=== PATIENT | male | born 1955 | race Caucasian/White ===

== ENCOUNTER 2016-11-18 19:07 | Inpatient (IN) | payer OTHER ==
[~2016-11-18] VITALS: Ht 182.9 cm; Wt 114.1 kg
[2016-11-18 19:10] VITALS: BP 173/94; PULSE 105; RESP 20; TEMP 99.3; O2SAT 95
[2016-11-18 19:21] VITALS: BP 141/85; PULSE 100; RESP 22; TEMP 98.2; O2SAT 98
[2016-11-18] MEDS ORDERED: SODIUM CHLOR 0.9% 1000 ML INJ 1,000 ML IV SCH (19:21)
[2016-11-18] MEDS ORDERED: FAMOTIDINE 20 MG/2 ML VIAL IV PUSH ONE (19:30)
[2016-11-18] MEDS ORDERED: SODIUM CHLORIDE 0.9% FLUSH 10 ML FLUSH IV FLUSH PRN ×2 (19:30→22:30)
[2016-11-18] MEDS ORDERED: ONDANSETRON HCL 4 MG/2 ML VIAL IVP ONE (19:30)
--- NOTE | 2016-11-18 19:33 | PD ---
HPI Chief Complaint: Chest Pain Time Seen by Provider: 19:15 Travel History International Travel<30 days: No Contact w/Intl Traveler<30days: No Traveled to known affect area: No History of Present Illness HPI The patient is a 61-year-old male who presents to the emergency department via private vehicle for vomiting and reflux-like symptoms. The patient states he has a history of gastroesophageal reflux, developed some epigastric abdominal pain that was burning, radiating into the substernal chest area, with burning in the mouth. He does complain of shortness of breath which she states is chronic, possibly secondary to COPD. The patient was a heavy smoker, now states he only smokes half a pack of cigarettes per day. The patient denies any history of coronary artery disease, hyperlipidemia, or diabetes. He does have a history of hypertension, however, currently does not take any antihypertensives. The patient states that the burning sensation in the chest has resolved. He does admit to using alcohol daily, drank 5 12 ounce cans of beer earlier today. The patient's symptoms are moderate, mostly self alleviating upon arrival, and there are no known exacerbating factors. The patient denies any known history of pulmonary embolism or DVT. PFSH Past Medical History Arthritis: Yes Asthma: Yes Diabetes: Yes Hypertension: Yes Past Surgical History Eye Surgery: Yes Oral Surgery: Yes (trache) Social History Alcohol Use: Yes Tobacco Use: Yes Substance Use: No Allergies-Medications (Allergen,Severity, Reaction): Coded Allergies: No Known Allergies (Unverified , 11/18/16) Reported Meds & Prescriptions Reported Meds & Active Scripts Active No Active Prescriptions or Reported Medications Review of Systems Except as stated in HPI: all other systems reviewed are Neg General / Constitutional: No: Fever HENT: No: Lightheadedness Cardiovascular: Positive: Chest Pain or Discomfort (substernal burning that radiates from the epigastrium) Respiratory: Positive: Shortness of Breath (chronic shortness of breath which he contributes to possible COPD), No: Cough, Wheezing Gastrointestinal: Positive: Nausea, Vomiting, Abdominal Pain (epigastric abdominal pain), Indigestion, No: Diarrhea Musculoskeletal: No: Edema Psychiatric: Positive: Substance Abuse (daily alcohol use) Physical Exam Narrative GENERAL: Awake, alert, 61-year-old male appears his stated age and is in no acute respiratory distress. SKIN: Focused skin assessment warm/dry. HEAD: Atraumatic. Normocephalic. EYES: Pupils equal and round. No scleral icterus. No injection or drainage. ENT: No nasal bleeding or discharge. Mucous membranes pink and moist. NECK: Trachea midline. No JVD. CARDIOVASCULAR: Regular, tachycardic with a heart rate 100. RESPIRATORY: No accessory muscle use. Prolonged expiratory phase with a few scattered wheezes. GASTROINTESTINAL: Abdomen soft, obese, no rebound tender is, guarding, rigidity. MUSCULOSKELETAL: No obvious deformities. No clubbing. No cyanosis. No edema. Calves are soft bilaterally. NEUROLOGICAL: Awake and alert. No obvious cranial nerve deficits. Motor grossly within normal limits. Normal speech. Nonfocal. PSYCHIATRIC: Appropriate mood and affect; insight and judgment normal. Data Data Last Documented VS Vital Signs Date Time Temp Pulse Resp B/P (MAP) Pulse Ox O2 Delivery O2 Flow Rate FiO2 11/18/16 19:21 98.2 100 22 141/85 (103) 98 11/18/16 19:10 Room Air Orders Orders Complete Blood Count With Diff (11/18/16 19:21) Comprehensive Metabolic Panel (11/18/16 19:21) Lipase (11/18/16 19:21) Lactic Acid (11/18/16 19:21) Urinalysis - C+S If Indicated (11/18/16 19:21) Iv Access Insert/Monitor (11/18/16 19:21) Ecg Monitoring (11/18/16 19:21) Oximetry (11/18/16 19:21) Ondansetron Inj (Zofran Inj) (11/18/16 19:30) Sodium Chlor 0.9% 1000 Ml Inj (Ns 1000 M (11/18/16 19:21) Sodium Chloride 0.9% Flush (Ns Flush) (11/18/16 19:30) Chest, Single Ap (11/18/16 19:21) Famotidine Inj (Pepcid Inj) (11/18/16 19:30) Troponin I (11/18/16 19:21) Creatine Kinase (Cpk) (11/18/16 19:21) Alcohol (Ethanol) (11/18/16 19:21) Electrocardiogram (11/18/16 19:15) Ct Pulmonary Angiogram (11/18/16 ) Sodium Chlor 0.9% 1000 Ml Inj (Ns 1000 M (11/18/16 20:30) Diatrizoate Liq (Md Richards Liq) (11/18/16 20:53) CKMB (11/18/16 19:40) CKMB% (11/18/16 19:40) Ct Abd/Pel W Iv Contrast(Rout) (11/18/16 21:08) Iohexol 350 Inj (Omnipaque 350 Inj) (11/18/16 21:46) Admit Order (Ed Use Only) (11/18/16 22:13) Labs Laboratory Tests Test 11/18/16 19:40 11/18/16 21:00 White Blood Count 9.0 TH/MM3 Red Blood Count 4.12 MIL/MM3 Hemoglobin 14.1 GM/DL Hematocrit 39.1 % Mean Corpuscular Volume 94.9 FL Mean Corpuscular Hemoglobin 34.4 PG Mean Corpuscular Hemoglobin Concent 36.2 % Red Cell Distribution Width 12.9 % Platelet Count 217 TH/MM3 Mean Platelet Volume 7.1 FL Neutrophils (%) (Auto) 73.3 % Lymphocytes (%) (Auto) 17.8 % Monocytes (%) (Auto) 8.4 % Eosinophils (%) (Auto) 0.2 % Basophils (%) (Auto) 0.3 % Neutrophils # (Auto) 6.6 TH/MM3 Lymphocytes # (Auto) 1.6 TH/MM3 Monocytes # (Auto) 0.8 TH/MM3 Eosinophils # (Auto) 0.0 TH/MM3 Basophils # (Auto) 0.0 TH/MM3 CBC Comment AUTO DIFF Differential Comment AUTO DIFF CONFIRMED Platelet Estimate NORMAL Platelet Morphology Comment NORMAL Blood Urea Nitrogen 7 MG/DL Creatinine 0.62 MG/DL Random Glucose 83 MG/DL Total Protein 7.2 GM/DL Albumin 3.9 GM/DL Calcium Level 8.3 MG/DL Alkaline Phosphatase 79 U/L Aspartate Amino Transf (AST/SGOT) 92 U/L Alanine Aminotransferase (ALT/SGPT) 73 U/L Total Bilirubin 0.8 MG/DL Sodium Level 116 MEQ/L Potassium Level 3.5 MEQ/L Chloride Level 76 MEQ/L Carbon Dioxide Level 21.9 MEQ/L Anion Gap 18 MEQ/L Estimat Glomerular Filtration Rate 132 ML/MIN Lactic Acid Level 5.9 mmol/L Total Creatine Kinase 586 U/L Creatine Kinase MB 12.5 NG/ML Creatine Kinase MB % 2.1 % Troponin I LESS THAN 0.02 NG/ML Lipase 153 U/L Ethyl Alcohol Level 106 MG/DL Urine Color YELLOW Urine Turbidity CLEAR Urine pH 6.0 Urine Specific [place] 1.008 Urine Protein NEG mg/dL Urine Glucose (UA) NEG mg/dL Urine Ketones 40 mg/dL Urine Occult Blood NEG Urine Nitrite NEG Urine Bilirubin NEG Urine Urobilinogen LESS THAN 2.0 MG/DL Urine Leukocyte Esterase NEG Urine RBC LESS THAN 1 /hpf Urine WBC LESS THAN 1 /hpf Urine Squamous Epithelial Cells <1 /hpf Urine Bacteria RARE /hpf Microscopic Urinalysis Comment CULT NOT INDICATED MDM Medical Decision Making Medical Screen Exam Complete: Yes Emergency Medical Condition: Yes Medical Record Reviewed: Yes Interpretation(s) EKG reveals sinus tachycardia with a heart rate of 100. Low QRS voltage precordial leads. Chest x-ray reveals no acute disease Laboratory Tests Test 11/18/16 19:40 11/18/16 21:00 White Blood Count 9.0 TH/MM3 Red Blood Count 4.12 MIL/MM3 Hemoglobin 14.1 GM/DL Hematocrit 39.1 % Mean Corpuscular Volume 94.9 FL Mean Corpuscular Hemoglobin 34.4 PG Mean Corpuscular Hemoglobin Concent 36.2 % Red Cell Distribution Width 12.9 % Platelet Count 217 TH/MM3 Mean Platelet Volume 7.1 FL Neutrophils (%) (Auto) 73.3 % Lymphocytes (%) (Auto) 17.8 % Monocytes (%) (Auto) 8.4 % Eosinophils (%) (Auto) 0.2 % Basophils (%) (Auto) 0.3 % Neutrophils # (Auto) 6.6 TH/MM3 Lymphocytes # (Auto) 1.6 TH/MM3 Monocytes # (Auto) 0.8 TH/MM3 Eosinophils # (Auto) 0.0 TH/MM3 Basophils # (Auto) 0.0 TH/MM3 CBC Comment AUTO DIFF Differential Comment AUTO DIFF CONFIRMED Platelet Estimate NORMAL Platelet Morphology Comment NORMAL Blood Urea Nitrogen 7 MG/DL Creatinine 0.62 MG/DL Random Glucose 83 MG/DL Total Protein 7.2 GM/DL Albumin 3.9 GM/DL Calcium Level 8.3 MG/DL Alkaline Phosphatase 79 U/L Aspartate Amino Transf (AST/SGOT) 92 U/L Alanine Aminotransferase (ALT/SGPT) 73 U/L Total Bilirubin 0.8 MG/DL Sodium Level 116 MEQ/L Potassium Level 3.5 MEQ/L Chloride Level 76 MEQ/L Carbon Dioxide Level 21.9 MEQ/L Anion Gap 18 MEQ/L Estimat Glomerular Filtration Rate 132 ML/MIN Lactic Acid Level 5.9 mmol/L Total Creatine Kinase 586 U/L Creatine Kinase MB 12.5 NG/ML Creatine Kinase MB % 2.1 % Troponin I LESS THAN 0.02 NG/ML Lipase 153 U/L Ethyl Alcohol Level 106 MG/DL Urine Color YELLOW Urine Turbidity CLEAR Urine pH 6.0 Urine Specific [place] 1.008 Urine Protein NEG mg/dL Urine Glucose (UA) NEG mg/dL Urine Ketones 40 mg/dL Urine Occult Blood NEG Urine Nitrite NEG Urine Bilirubin NEG Urine Urobilinogen LESS THAN 2.0 MG/DL Urine Leukocyte Esterase NEG Urine RBC LESS THAN 1 /hpf Urine WBC LESS THAN 1 /hpf Urine Squamous Epithelial Cells <1 /hpf Urine Bacteria RARE /hpf Microscopic Urinalysis Comment CULT NOT INDICATED CT pulmonary angiogram reveals hepatomegaly and hepatic steatosis. No evidence for pulmonary embolus. Lung nodules. 6-month-old CT chest recommended. CT abdomen and pelvis reveals hepatomegaly and hepatic steatosis. Atherosclerosis. Diverticulosis. Differential Diagnosis Differential diagnosis includes gastritis, GERD, peptic ulcer disease, pancreatitis, pulmonary embolism, acute coronary syndrome, pneumonia, biliary colic. Narrative Course IV was established, labs are drawn and sent, and the patient was placed on cardiac telemetry monitoring and continuous pulse oximetry monitoring. EKG was ordered and interpreted. Chest x-ray was obtained. The patient was administered Pepcid, Zofran, and IV fluids. Troponin and CPK were sent to lab. Lipase level was sent to lab. Lab called, patient's lactic gas was 5.9. Therefore, the patient was administered and the second liter of IV fluids. CT pulmonary angiogram was ordered to rule out PE and CT the abdomen and pelvis was ordered for his epigastric abdominal pain with elevated lactic acid. Chest x-ray was unremarkable, no evidence of pneumonia. CT pulmonary angiogram reveals lung nodules with repeat CT of the chest in [address] abdomen and pelvis reveals hepatomegaly and hepatic steatosis. The patient's hyponatremia may be secondary to alcohol use versus water intoxication. The patient's alcohol level is elevated at 106. Patient also has lactic acidosis. The patient will be admitted to the on-call medical service. Physician Communication Physician Communication The on-call medical service was paged for admission. I discussed the patient with Dr. Manzanares who agrees with admission. Diagnosis Primary Impression: Hyponatremia Additional Impression: Lactic acidosis Scripts No Active Prescriptions or Reported Meds Condition: Stable Vic Villar MD Nov 18, 2016 19:33
[2016-11-18 20:22] LABS: AUTOMATED NEUTROPHIL # 6.6 TH/MM3 (1.8-7.7); BASOPHIL % 0.3 % (0.0-2.0); EOSINOPHIL % 0.2 % (0.0-4.0); HEMATOCRIT 39.1 % (39.0-51.0); LYMPH % 17.8 % (9.0-44.0); LYMPHOCYTE # 1.6 TH/MM3 (1.0-4.8); MEAN CELL VOLUME 94.9 FL (80.0-100.0); MEAN CORPUSCULAR HEMOGLOBIN 34.4 PG (27.0-34.0); MONO % 8.4 % (0.0-8.0); NEUT % 73.3 % (16.0-70.0); PLATELET COUNT 217 TH/MM3 (150-450); RED BLOOD COUNT 4.12 MIL/MM3 (4.50-5.90); RED CELL DISTRIBUTION WIDTH 12.9 % (11.6-17.2)
[2016-11-18 20:24] LABS: HEMO FLAGS AUTO DIFF; MEAN CORPUSCULAR HGB CONC 36.2 % (32.0-36.0)
[2016-11-18] MEDS ORDERED: SODIUM CHLOR 0.9% 1000 ML INJ 1,000 ML IV ONE (20:30)
--- NOTE | 2016-11-18 20:36 | RADRPT ---
EXAM DATE/TIME: 11/18/2016 20:24 [facility] COMPARISON: CHEST SINGLE AP, September 21, 2014, 13:20. INDICATIONS : Vomiting. MEDICAL HISTORY : None. SURGICAL HISTORY : None. ENCOUNTER: Initial ACUITY: 1 day PAIN SCORE: 0/10 LOCATION: Bilateral chest FINDINGS: A single view of the chest demonstrates the lungs to be symmetrically aerated without evidence of mas s, infiltrate or effusion. The cardiomediastinal contours are unremarkable. Osseous structures are intact. CONCLUSION: No acute disease. Chai Neville MD on November 18, 2016 at 20:35 Board Certified Radiologist. This report was verified electronically.
[2016-11-18 20:40] LABS: ALCOHOL 106 MG/DL (0-5); ANION GAP 18 MEQ/L (5-15); AST (GOT) 92 U/L (15-37); BICARBONATE 21.9 MEQ/L (21.0-32.0); BLOOD UREA NITROGEN 7 MG/DL (7-18); CHLORIDE 76 MEQ/L (98-107); GLOMERULAR FILTRATION RATE 132 ML/MIN (>89); POTASSIUM 3.5 MEQ/L (3.5-5.1)
[2016-11-18 20:43] LABS: SODIUM (NA) 116 MEQ/L (136-145)
[2016-11-18] MEDS ORDERED: DIATRIZOATE MEGLUM/DIATRIZOATE SOD 9 ML CUP ONE (20:53)
[2016-11-18 21:00] LABS: ALKALINE PHOSPHATASE 79 U/L (45-117); ALT (GPT) 73 U/L (12-78); CREATINE KINASE 586 U/L (39-308); TOTAL BILIRUBIN ADULT 0.8 MG/DL (0.2-1.0)
[2016-11-18 21:15] LABS: CKMB 12.5 NG/ML (0.5-3.6)
[2016-11-18 21:37] LABS: BACTERIA, URINE RARE /hpf; BLOOD, URINE NEG (NEG); COMMENT (UR) CULT NOT INDICATED; CULTURE IF INDICATED CULT NOT INDICATED; GLUCOSE,URINE NEG (NEG); KETONE, URINE 40 mg/dL (NEG); NITRITE,URINE NEG (NEG); SQUAMOUS EPITHELIAL CELL URINE <1 /hpf (0-5); URINE COLOR YELLOW (YELLW/STRAW)
[2016-11-18] MEDS ORDERED: IOHEXOL 350 MG/ML 10 ML VIAL (for RAD DIAG) IVCONTRAST ONE (21:46)
[2016-11-18 21:47] LABS: PLATELET ESTIMATE SMEAR NORMAL (NORMAL); PLATELET MORPHOLOGY NORMAL (NORMAL); SCAN/DIFF AUTO DIFF CONFIRMED
--- NOTE | 2016-11-18 21:55 | RADRPT ---
EXAM DATE/TIME: 11/18/2016 21:35 [facility] COMPARISON: CHEST SINGLE AP, November 18, 2016, 20:24. INDICATIONS : Chest pain and shortness of breath. IV CONTRAST: 100 cc Omnipaque 350 (iohexol) IV ; Cumulative dose for multiple exams. RADIATION DOSE: 23.38 CTDIvol (mGy) MEDICAL HISTORY : Hypertension. Hepatitis B. Diabetes. SURGICAL HISTORY : None. ENCOUNTER: Initial ACUITY: 1 day PAIN SCALE: 6/10 LOCATION: Bilateral chest TECHNIQUE: Volumetric scanning of the chest was performed using a pulmonary embolism protocol MIP images were re constructed. Using automated exposure control and adjustment of the mA and/or kV according to patien t size, radiation dose was kept as low as reasonably achievable to obtain optimal diagnostic quality images. DICOM format image data is available electronically for review and comparison. Follow-up recommendations for detected pulmonary nodules are based at a minimum on nodule size and pa tient risk factors according to Fleischner Society Guidelines. FINDINGS: There is a noncalcified nodule in the right upper lobe medially measuring 9.6 cm on image 31. There i s a nodule also seen in the right middle lobe measuring 6.0 mm on image 54. Mild apical emphysematous changes are seen. No consolidation or effusion. Questionable noncalcified left upper lobe nodule gosia suring 4.1 mm on image 38. No adenopathy. Coronary artery calcification. Hepatic venous stenosis and hepatomegaly. Gynecomastia. No evidence of pulmonary embolism. CONCLUSION: 1. Hepatomegaly and hepatic steatosis. 2. No evidence for pulmonary embolus. 3. Lung nodules. [address] chest recommended. Chai Neville MD on November 18, 2016 at 21:52 Board Certified Radiologist. This report was verified electronically.
--- NOTE | 2016-11-18 21:58 | RADRPT ---
EXAM DATE/TIME: 11/18/2016 21:35 [facility] COMPARISON: US ABDOMEN - LIVER, September 21, 2014, 19:08. CT PULMONARY ANGIOGRAM, November 18, 2016, 21:35. INDICATIONS : Epigastric abdominal pain with vomiting. IV CONTRAST: 100 cc Omnipaque 350 (iohexol) IV ; Cumulative dose for multiple exams. ORAL CONTRAST: No oral contrast ingested. RADIATION DOSE: 31.44 CTDIvol (mGy) MEDICAL HISTORY : Gastroesophageal reflux disease. Hypertension. Hepatitis B.Diabetes. SURGICAL HISTORY : None. ENCOUNTER: Initial ACUITY: 1 day PAIN SCALE: 7/10 LOCATION: Epigastric. TECHNIQUE: Volumetric scanning of the abdomen and pelvis was performed. Using automated exposure control and ad justment of the mA and/or kV according to patient size, radiation dose was kept as low as reasonably achievable to obtain optimal diagnostic quality images. DICOM format image data is available electro nically for review and comparison. FINDINGS: There is atherosclerosis, hepatomegaly and hepatic steatosis. Kidneys, spleen, pancreas, adrenal glan ds, stomach unremarkable. Urinary bladder, prostate, small bowel, and appendix are normal. A few dive rticuli are seen within the left colon. No adenopathy. There are degenerative changes of the spine no ziyad with remote mild compression deformities at L1, T12 and T8. CONCLUSION: 1. Hepatomegaly and hepatic steatosis. 2. Atherosclerosis. 3. Diverticulosis. Chai Neville MD on November 18, 2016 at 21:55 Board Certified Radiologist. This report was verified electronically.
--- NOTE | 2016-11-18 22:27 | HHI.HP ---
HPI Service [facility] Primary Care Physician [facility] Admission Diagnosis hyponatremia, lactic acidosis, alcohol use Diagnoses: (1) Hyponatremia Diagnosis: Principal (2) Intractable nausea and vomiting Diagnosis: Principal (3) Chest pain Diagnosis: Principal (4) Rhabdomyolysis Diagnosis: Principal (5) Lactic acidosis Diagnosis: Principal (6) Alcohol abuse Diagnosis: Principal (7) Tobacco abuse Diagnosis: Principal Travel History International Travel<30 Days: No Contact w/Intl Traveler <30 Da: No Traveled to Known Affected Are: No History of Present Illness This is a 61-year-old male with PMH of HTN, COPD, Alcohol Abuse and Tobacco Abuse was brought to the ER by friend secondary to complaints of chest/ epigastric pain in addition to nausea and vomiting starting earlier today. Pt poor historian, history difficult to obtain. Denies fever, chills or cough. On arrival, BP 173/94, HR 105, O2 sat 95% on RA, Temp 99.3. Hemoglobin normal. Na 116. K+ normal. AG 18. Lactic Acid 5.9. CPK 586. Trop negative. Lipase normal. U/a negative. Alcohol 106. CXR w/ no acute findings. CTA Pulm negative for PE, +hepatic steatosis and lung nodules w/ recommendation for 6mo [address] up. CT Abd/Pelvis negative for acute findings, hepatic steatosis as before. S/p IVF in ER. Review of Systems Except as stated in HPI: all other systems reviewed are Neg ROS: 14 point review of systems otherwise negative. Past Family Social History Past Medical History PMH: HTN, COPD, Alcohol Abuse and Tobacco Abuse Past Surgical History PAST SURGICAL HISTORY: Eye Surgery Allergies: Coded Allergies: No Known Allergies (Unverified , 11/18/16) Family History PAST FAMILY HISTORY: Reviewed. No h/o DM or CAD Social History PAST SOCIAL HISTORY: Positive for alcohol abuse. Positive for tobacco. Negative for drugs. Physical Exam Vital Signs Vital Signs Date Time Temp Pulse Resp B/P (MAP) Pulse Ox O2 Delivery O2 Flow Rate FiO2 11/18/16 19:21 98.2 100 22 141/85 (103) 98 11/18/16 19:10 99.3 105 20 173/94 (120) 95 Room Air Physical Exam PE: GENERAL: Middle-aged white male in no acute distress, disheveled. HEENT: PERRLA, EOMI. No scleral icterus or conjunctival pallor. No lid lag or facial droop. CARDIOVASCULAR: Regular rate and rhythm. No obvious murmurs to auscultation. No chest tenderness to palpation. RESPIRATORY: No obvious rhonchi or wheezing. Clear to auscultation. Breath sounds equal bilaterally. GASTROINTESTINAL: Abdomen soft, non-tender, nondistended. BS normal. MUSCULOSKELETAL: Extremities without clubbing, cyanosis, or edema. No obvious deformities. NEUROLOGICAL: Awake, alert. No focal neurologic deficits. Moving both upper and lower extremities spontaneously. Laboratory Laboratory Tests Test 11/18/16 19:40 11/18/16 21:00 White Blood Count 9.0 Red Blood Count 4.12 Hemoglobin 14.1 Hematocrit 39.1 Mean Corpuscular Volume 94.9 Mean Corpuscular Hemoglobin 34.4 Mean Corpuscular Hemoglobin Concent 36.2 Red Cell Distribution Width 12.9 Platelet Count 217 Mean Platelet Volume 7.1 Neutrophils (%) (Auto) 73.3 Lymphocytes (%) (Auto) 17.8 Monocytes (%) (Auto) 8.4 Eosinophils (%) (Auto) 0.2 Basophils (%) (Auto) 0.3 Neutrophils # (Auto) 6.6 Lymphocytes # (Auto) 1.6 Monocytes # (Auto) 0.8 Eosinophils # (Auto) 0.0 Basophils # (Auto) 0.0 CBC Comment AUTO DIFF Differential Comment AUTO DIFF CONFIRMED Platelet Estimate NORMAL Platelet Morphology Comment NORMAL Blood Urea Nitrogen 7 Creatinine 0.62 Random Glucose 83 Total Protein 7.2 Albumin 3.9 Calcium Level 8.3 Alkaline Phosphatase 79 Aspartate Amino Transf (AST/SGOT) 92 Alanine Aminotransferase (ALT/SGPT) 73 Total Bilirubin 0.8 Sodium Level 116 Potassium Level 3.5 Chloride Level 76 Carbon Dioxide Level 21.9 Anion Gap 18 Estimat Glomerular Filtration Rate 132 Lactic Acid Level 5.9 Total Creatine Kinase 586 Creatine Kinase MB 12.5 Creatine Kinase MB % 2.1 Troponin I LESS THAN 0.02 Lipase 153 Ethyl Alcohol Level 106 Urine Color YELLOW Urine Turbidity CLEAR Urine pH 6.0 Urine Specific [place] 1.008 Urine Protein NEG Urine Glucose (UA) NEG Urine Ketones 40 Urine Occult Blood NEG Urine Nitrite NEG Urine Bilirubin NEG Urine Urobilinogen LESS THAN 2.0 Urine Leukocyte Esterase NEG Urine RBC LESS THAN 1 Urine WBC LESS THAN 1 Urine Squamous Epithelial Cells <1 Urine Bacteria RARE Microscopic Urinalysis Comment CULT NOT INDICATED Result Diagram: 11/18/16193911/18/161939 Maryi VTE Risk Assessment Caprini VTE Risk Assessment: No/Low Risk (score <= 1) Caprini Risk Assessment Model Point Value = 1 Point Value = 2 Point Value = 3 Point Value = 5 Age 41-60 Minor surgery BMI > 25 kg/m2 Swollen legs Varicose veins or History of unexplained or recurrent spontaneous Oral contraceptives or hormone replacement Sepsis (< 1 month) Serious lung disease, including pneumonia (< 1 month) Abnormal pulmonary function Acute myocardial infarction Congestive heart failure (< 1 month) History of inflammatory bowel disease Medical patient at bed rest Age 61-74 Arthroscopic surgery Major open surgery (> 45 min) Laparoscopic surgery (> 45 min) Malignancy Confined to bed (> 72 hours) Immobilizing plaster cast Central venous access Age >= 75 History of VTE Family history of VTE Factor V Leiden Prothrombin [id number] Lupus anticoagulant Anticardiolipin antibodies Elevated serum homocysteine Heparin-induced thrombocytopenia Other congenital or acquired thrombophilia Stroke (< 1 month) Elective arthroplasty Hip, pelvis, or leg fracture Acute spinal cord injury (< 1 month) Prophylaxis Regimen Total Risk Factor Score Risk Level Prophylaxis Regimen 0-1 Low Early ambulation 2 Moderate Order ONE of the following: *Sequential Compression Device (SCD) *Heparin 5000 units SQ BID 3-4 Higher Order ONE of the following medications: *Heparin 5000 units SQ TID *Enoxaparin/Lovenox 40 mg SQ daily (WT < 150 kg, CrCl > 30 mL/min) *Enoxaparin/Lovenox 30 mg SQ daily (WT < 150 kg, CrCl > 10-29 mL/min) *Enoxaparin/Lovenox 30 mg SQ BID (WT < 150 kg, CrCl > 30 mL/min) AND/OR *Sequential Compression Device (SCD) 5 or more Highest Order ONE of the following medications: *Heparin 5000 units SQ TID (Preferred with Epidurals) *Enoxaparin/Lovenox 40 mg SQ daily (WT < 150 kg, CrCl > 30 mL/min) *Enoxaparin/Lovenox 30 mg SQ daily (WT < 150 kg, CrCl > 10-29 mL/min) *Enoxaparin/Lovenox 30 mg SQ BID (WT < 150 kg, CrCl > 30 mL/min) AND *Sequential Compression Device (SCD) Assessment and Plan Problem List: (1) Hyponatremia ICD Code: E87.1 - Hypo-osmolality and hyponatremia Status: Acute (2) Chest pain ICD Code: R07.9 - Chest pain, unspecified (3) Intractable nausea and vomiting ICD Code: R11.2 - Nausea with vomiting, unspecified (4) Lactic acidosis ICD Code: E87.2 - Acidosis Status: Acute (5) Rhabdomyolysis ICD Code: M62.82 - Rhabdomyolysis (6) Alcohol abuse ICD Code: F10.10 - Alcohol abuse, uncomplicated (7) Tobacco abuse ICD Code: Z72.0 - Tobacco use Assessment and Plan A/P: 1. Hyponatremia: Na 116, likely secondary to chronic alcohol abuse in combination w/ dehydration from intractable nausea/vomiting. Similar episode 2014 per review of labs. Continue IVF for hydration, repeat labs, Neuro Checks , Seizure Precautions. CTA Pulm negative for PE, noted to have multiple lung nodules w/ recommendation for 6 mo follow up, images reviewed by me, no findings to suggest SIADH. 2. Chest Pain: Atypical. Likely GI etiology as c/o nausea/vomiting. Trop negative, EKG w/ no acute ischemia. Check serial trop, analgesics/antiemetics as needed. 3. Intractable NV: Lipase normal. Pepcid IV, analgesics as needed. IVF for hydration. CT Abd/Pelvis w/ no acute findings, +hepatic steatosis, images reviewed by me. 4. Lactic Acidosis: Lactate 5.9, s/p IVF in ER, will continue w/ IVF, repeat Lactic Acid. No evidence of sepsis, likely secondary to dehydration. 5. Rhabdomyolysis: Mild. CPK 586. IVF for hydration, check serial CPK for trend. 6. Alcohol Abuse: Drinks daily, unable to quantify. High risk for withdrawal. CIWA, Seizure Precautions, MVT/Thiamine/Folate replacement. 7. Tobacco Abuse: Pt counselled. NicoDerm/Ativan prn if needed. 8. DVT Prophylaxis: SCD/Teds. 9. Social work for d/c planning as needed. 10. Case discussed w/ ER physician at length. Physician Certification 2 Midnight Certification Type: Admission for Inpatient Services Order for Inpatient Services The services are ordered in accordance with Medicare regulations or non- Medicare payer requirements, as applicable. In the case of services not specified as inpatient-only, they are appropriately provided as inpatient services in accordance with the 2-midnight benchmark. Estimated LOS (days): 2 days is the estimated time the patient will need to remain in the hospital, assuming treatment plan goals are met and no additional complications. Post-Hospital Plan: Not yet determined Pao Manzanares MD Nov 18, 2016 22:27
[2016-11-18] MEDS ORDERED: LORazepam 2 MG TAB PO PRN (22:30)
[2016-11-18] MEDS ORDERED: LACTULOSE SYRUP 20 GM/30 ML CUP PO PRN (22:30)
[2016-11-18] MEDS ORDERED: LORazepam 2 MG/ML VIAL IV PUSH PRN ×4 (22:30)
[2016-11-18] MEDS ORDERED: HALOPERIDOL LACTATE 5 MG/ML AMP IM PRN (22:30)
[2016-11-18] MEDS ORDERED: MAGNESIUM HYDROXIDE SUSP 30 ML CUP PO PRN (22:30)
[2016-11-18] MEDS ORDERED: ONDANSETRON HCL 4 MG/2 ML VIAL IVP PRN (22:30)
[2016-11-18] MEDS ORDERED: FLUMAZENIL 0.5 MG/5 ML VIAL IV PUSH PRN (22:30)
[2016-11-18] MEDS ORDERED: BISACODYL 10 MG SUPP RECTAL PRN (22:30)
[2016-11-18] MEDS ORDERED: SENNOSIDES 8.6 MG TAB PO PRN (22:30)
[2016-11-19] VITALS (8 sets, daily range): BP systolic 137–159; BP diastolic 83–113; PULSE 85–113; RESP 20–24; TEMP 96.5–99.3; O2SAT 94–100
[2016-11-19] MEDS: SODIUM CHLOR 0.9% 1000 ML INJ 1,000 ML IV SCH ×3 (00:07→22:52)
[2016-11-19] MEDS: LORazepam 1 MG TAB PO PRN (00:12)
[2016-11-19 03:19] LABS: CREATINE KINASE 648 U/L (39-308)
[2016-11-19 05:06] LABS: CKMB 14.8 NG/ML (0.5-3.6)
--- NOTE | 2016-11-19 05:56 | EKG ---
Date Performed: 11/18/2016 Time Performed: 19:15:43 PTAGE: 61 years EKG: SINUS TACHYCARDIA LOW QRS VOLTAGE IN PRECORDIAL LEADS ABNORMAL RHYTHM ECG NO PREVIOUS TRACING DOCTOR: Curly De Leon Interpretating Date/Time 11/19/2016 05:53:41
[2016-11-19 07:47] LABS: AUTOMATED NEUTROPHIL # 5.6 TH/MM3 (1.8-7.7); BASOPHIL % 0.2 % (0.0-2.0); EOSINOPHIL % 0.2 % (0.0-4.0); HEMATOCRIT 37.1 % (39.0-51.0); HEMO FLAGS DIFF FINAL; LYMPH % 18.4 % (9.0-44.0); LYMPHOCYTE # 1.4 TH/MM3 (1.0-4.8); MEAN CORPUSCULAR HEMOGLOBIN 33.8 PG (27.0-34.0); MEAN CORPUSCULAR HGB CONC 35.5 % (32.0-36.0); MONO % 9.4 % (0.0-8.0); NEUT % 71.8 % (16.0-70.0); PLATELET COUNT 179 TH/MM3 (150-450); RED CELL DISTRIBUTION WIDTH 13.2 % (11.6-17.2); WHITE BLOOD COUNT 7.8 TH/MM3 (4.0-11.0)
[2016-11-19 08:17] LABS: ALKALINE PHOSPHATASE 70 U/L (45-117); ALT (GPT) 61 U/L (12-78); ANION GAP 15 MEQ/L (5-15); AST (GOT) 76 U/L (15-37); BICARBONATE 22.4 MEQ/L (21.0-32.0); BLOOD UREA NITROGEN 7 MG/DL (7-18); CHLORIDE 83 MEQ/L (98-107); CREATINE KINASE 656 U/L (39-308); GLOMERULAR FILTRATION RATE 151 ML/MIN (>89); POTASSIUM 3.5 MEQ/L (3.5-5.1); TOTAL BILIRUBIN ADULT 1.4 MG/DL (0.2-1.0)
[2016-11-19 08:27] LABS: SODIUM (NA) 120 MEQ/L (136-145)
[2016-11-19 08:41] LABS: CKMB 15.7 NG/ML (0.5-3.6)
[2016-11-19] MEDS: SODIUM CHLORIDE 0.9% FLUSH 10 ML FLUSH IV FLUSH SCH ×2 (09:00→22:50)
[2016-11-19] MEDS: MULTIVITAMINS/MINERALS THERAPEUTIC TAB PO SCH (09:17)
[2016-11-19] MEDS: FOLIC ACID 1 MG TAB PO SCH (09:17)
[2016-11-19] MEDS: THIAMINE HCL 100 MG TAB PO SCH (09:17)
[2016-11-19] MEDS: DOCUSATE SODIUM 50 MG/SENNA 8.6 MG TAB PO SCH ×2 (09:17→22:44)
[2016-11-19] MEDS: ACETAMINOPHEN 325 MG TAB PO PRN (09:18)
[2016-11-19] MEDS: FAMOTIDINE 20 MG/2 ML VIAL IV PUSH SCH ×2 (10:51→22:45)
--- NOTE | 2016-11-19 13:24 | HHI.PR ---
Subjective Remarks Pt tells me that the nausea and vomiting have resolved. states that he has a hx of hyponatremia, he admits to me to drinking more on week-end but does admit to daily drinking. overall feels a bit better and has been able to eat a bit for breakfast and had a salad for lunch. Objective Vitals Vital Signs Date Time Temp Pulse Resp B/P (MAP) Pulse Ox O2 Delivery O2 Flow Rate FiO2 11/19/16 12:00 96.5 85 22 156/96 (116) 100 11/19/16 08:00 97.8 92 20 154/87 (109) 100 11/19/16 04:05 97.7 97 20 147/83 (104) 97 11/19/16 00:40 99.3 111 22 159/103 (121) 97 137/100 (112) 11/19/16 00:07 113 24 158/113 (128) 97 Room Air 11/18/16 19:21 98.2 100 22 141/85 (103) 98 11/18/16 19:10 99.3 105 20 173/94 (120) 95 Room Air I/O 11/18/16 11/18/16 11/18/16 11/19/16 11/19/16 11/19/16 07:00 15:00 23:00 07:00 15:00 23:00 Intake Total 2000 ml 240 ml Output Total 550 ml Balance 2000 ml -310 ml Intake Oral 240 ml IV Total 2000 ml Output Urine Total 550 ml # Bowel Movements 1 Result Diagram: 11/19/16 0620 11/19/16 0620 Imaging Last Impressions Abdomen/Pelvis CT 11/18/162107 Signed Impressions: Service Date/Time: Friday, November 18, 2016 21:35 - CONCLUSION: 1. Hepatomegaly and hepatic steatosis. 2. Atherosclerosis. 3. Diverticulosis. Chai Neville MD Chest X-Ray 11/18/16 192 Signed Impressions: Service Date/Time: Friday, November 18, 2016 20:24 - CONCLUSION: No acute disease. Chai Neville MD CT Angiography 11/18/16 0000 Signed Impressions: Service Date/Time: Friday, November 18, 2016 21:35 - CONCLUSION: 1. Hepatomegaly and hepatic steatosis. 2. No evidence for pulmonary embolus. 3. Lung nodules. [address] chest recommended. Chai Neville MD Objective Remarks GENERAL: Middle-aged white male disheveled and unkept. HEENT: EOMI. CARDIOVASCULAR: Regular rate and rhythm. No obvious murmurs to auscultation. RESPIRATORY: No obvious rhonchi or wheezing. Clear to auscultation. Breath sounds equal bilaterally. GASTROINTESTINAL: Abdomen soft, non-tender, nondistended. BS normal. MUSCULOSKELETAL: toes w dirt on them especially in between them, mild erythema noted NEUROLOGICAL: Awake, alert. No focal neurologic deficits. Moving both upper and lower extremities spontaneously. A/P Problem List: (1) Hyponatremia ICD Code: E87.1 - Hypo-osmolality and hyponatremia Status: Acute (2) Chest pain ICD Code: R07.9 - Chest pain, unspecified (3) Intractable nausea and vomiting ICD Code: R11.2 - Nausea with vomiting, unspecified (4) Lactic acidosis ICD Code: E87.2 - Acidosis Status: Acute (5) Rhabdomyolysis ICD Code: M62.82 - Rhabdomyolysis (6) Alcohol abuse ICD Code: F10.10 - Alcohol abuse, uncomplicated (7) Tobacco abuse ICD Code: Z72.0 - Tobacco use Assessment and Plan 1. Hyponatremia: Na 116, likely secondary to chronic alcohol abuse in combination w/ dehydration from intractable nausea/vomiting which seems to have resolved. Similar episode 09/2014 per review of labs. Continue IVF for hydration but will decrease rate so we don't correct sodium too quickly, repeat sodium levels q6hrs, Neuro Checks, Seizure Precautions. check serum/urine Na and Cr. CTA Pulm negative for PE, noted to have multiple lung nodules w/ recommendation for 6 mo follow up, images reviewed by me, no findings to suggest SIADH. 2. Chest Pain: Atypical. Likely GI etiology as c/o nausea/vomiting. CE negative x3, EKG w/ no acute ischemia. 3. Intractable NV: Lipase normal. Pepcid IV, analgesics as needed. IVF for hydration. CT Abd/Pelvis w/ no acute findings, +hepatic steatosis 4. Lactic Acidosis: Lactate 5.9, s/p IVF in ER, will continue w/ IVF, repeat Lactic Acid. No evidence of sepsis, likely secondary to dehydration. 5. Rhabdomyolysis: Mild. continue to monitor clinically 6. Alcohol Abuse: Drinks daily, unable to quantify. High risk for withdrawal. CIWA, Seizure Precautions, MVT/Thiamine/Folate replacement. Pt has been counseled on quitting drinking 7. Tobacco Abuse: Pt counselled. NicoDerm/Ativan prn if needed. 8. DVT Prophylaxis: SCD/Teds. heparin Discharge Planning once sodium levels corrected and stable Agnes Montoya MD Nov 19, 2016 13:24
[2016-11-19] MEDS: NYSTATIN 100,000 U/GM PWD 15 GM BTL TOPICAL SCH ×2 (14:00→22:45)
[2016-11-19 15:39] LABS: BICARBONATE 29.3 MEQ/L (21.0-32.0); POTASSIUM 3.8 MEQ/L (3.5-5.1)
[2016-11-19] MEDS ORDERED: LOPERAMIDE HCL 2 MG CAP PO ONE (19:15)
[2016-11-19 22:16] LABS: BICARBONATE 25.7 MEQ/L (21.0-32.0); POTASSIUM 3.7 MEQ/L (3.5-5.1)
[2016-11-19] MEDS: HEPARIN SODIUM - SQ 10,000 UNITS/ML VIAL SQ SCH (22:44)
[2016-11-20] VITALS (7 sets, daily range): BP systolic 131–207; BP diastolic 80–104; PULSE 77–97; RESP 20–22; TEMP 96.2–98; O2SAT 96–100
[2016-11-20 01:27] LABS: BICARBONATE 25.8 MEQ/L (21.0-32.0); POTASSIUM 3.5 MEQ/L (3.5-5.1)
[2016-11-20] MEDS: NYSTATIN 100,000 U/GM PWD 15 GM BTL TOPICAL SCH ×3 (05:31→20:00)
[2016-11-20] MEDS ORDERED: LACTOBACILLUS ACIDOPHILUS 1 GM PACKET PO SCH (09:00)
[2016-11-20] MEDS: DOCUSATE SODIUM 50 MG/SENNA 8.6 MG TAB PO SCH ×2 (09:00→19:58)
[2016-11-20] MEDS: FOLIC ACID 1 MG TAB PO SCH (09:18)
[2016-11-20] MEDS: MULTIVITAMINS/MINERALS THERAPEUTIC TAB PO SCH (09:18)
[2016-11-20] MEDS: THIAMINE HCL 100 MG TAB PO SCH (09:18)
[2016-11-20] MEDS: FAMOTIDINE 20 MG/2 ML VIAL IV PUSH SCH ×2 (09:18→19:59)
[2016-11-20] MEDS: NICOTINE 21 MG/24 HR PATCH T-DERMAL SCH (09:19)
[2016-11-20] MEDS: HEPARIN SODIUM - SQ 10,000 UNITS/ML VIAL SQ SCH ×2 (09:19→19:59)
[2016-11-20] MEDS: SODIUM CHLORIDE 0.9% FLUSH 10 ML FLUSH IV FLUSH SCH ×2 (09:20→19:59)
[2016-11-20] MEDS: SODIUM CHLOR 0.9% 1000 ML INJ 1,000 ML IV SCH (09:28)
--- NOTE | 2016-11-20 12:17 | HHI.PR ---
Subjective Remarks Pt has no complaints. ask if coffee causes hyponatremia like alcohol. states he plans on quitting drinking x 6 months. Objective Vitals Vital Signs Date Time Temp Pulse Resp B/P (MAP) Pulse Ox O2 Delivery O2 Flow Rate FiO2 11/20/16 08:00 96.6 92 20 162/90 (114) 97 11/20/16 04:20 98.0 97 22 131/80 (97) 99 11/20/16 00:30 96.9 77 20 154/94 (114) 100 11/19/16 20:20 96.7 90 20 138/83 (101) 99 11/19/16 20:15 88 11/19/16 16:00 98.2 90 20 142/84 (103) 94 I/O 11/19/16 11/19/16 11/19/16 11/20/16 11/20/16 11/20/16 07:00 15:00 23:00 07:00 15:00 23:00 Intake Total 240 ml 600 ml 720 ml 1020 ml Output Total 550 ml 1200 ml 1200 ml Balance -310 ml -600 ml 720 ml -180 ml Intake Oral 240 ml 600 ml 720 ml 1020 ml Output Urine Total 550 ml 1200 ml 1200 ml # Voids 3 # Bowel Movements 1 3 0 0 Result Diagram: 11/19/16 0620 11/20/16 0042 Imaging Last Impressions Abdomen/Pelvis CT 11/18/162107 Signed Impressions: Service Date/Time: Friday, November 18, 2016 21:35 - CONCLUSION: 1. Hepatomegaly and hepatic steatosis. 2. Atherosclerosis. 3. Diverticulosis. Chai Neville MD Chest X-Ray 11/18/16 192 Signed Impressions: Service Date/Time: Friday, November 18, 2016 20:24 - CONCLUSION: No acute disease. Chai Neville MD CT Angiography 11/18/16 0000 Signed Impressions: Service Date/Time: Friday, November 18, 2016 21:35 - CONCLUSION: 1. Hepatomegaly and hepatic steatosis. 2. No evidence for pulmonary embolus. 3. Lung nodules. [address] chest recommended. Chai Neville MD Objective Remarks GENERAL: Middle-aged white male disheveled and unkept. HEENT: EOMI. CARDIOVASCULAR: Regular rate and rhythm. No obvious murmurs to auscultation. RESPIRATORY: No obvious rhonchi or wheezing. Clear to auscultation. Breath sounds equal bilaterally. GASTROINTESTINAL: Abdomen soft, non-tender, nondistended. BS normal. MSK/NEUROLOGICAL: Awake, alert. no tremors. Moving both upper and lower extremities spontaneously. A/P Problem List: (1) Hyponatremia ICD Code: E87.1 - Hypo-osmolality and hyponatremia Status: Acute (2) Chest pain ICD Code: R07.9 - Chest pain, unspecified (3) Intractable nausea and vomiting ICD Code: R11.2 - Nausea with vomiting, unspecified (4) Lactic acidosis ICD Code: E87.2 - Acidosis Status: Acute (5) Rhabdomyolysis ICD Code: M62.82 - Rhabdomyolysis (6) Alcohol abuse ICD Code: F10.10 - Alcohol abuse, uncomplicated (7) Tobacco abuse ICD Code: Z72.0 - Tobacco use Assessment and Plan 1. Hyponatremia: Na 116 now up to 125, BMP pending. likely secondary to chronic alcohol abuse in combination w/ dehydration from intractable nausea/ vomiting which seems to have resolved. Similar episode 09/2014 per review of labs. continue to monitor Na levels, fluid restrict to 1500 as serum/urine osm low, Neuro Checks, Seizure Precautions. CTA Pulm negative for PE, noted to have multiple lung nodules w/ recommendation for 6 mo follow up. added 1tab sodium tab BID. HLIV. 2. Chest Pain: Atypical. Likely GI etiology as c/o nausea/vomiting. CE negative x3, EKG w/ no acute ischemia. 3. Intractable NV: Lipase normal. Pepcid IV, analgesics as needed. IVF for hydration. CT Abd/Pelvis w/ no acute findings, +hepatic steatosis 4. Lactic Acidosis: Lactate 5.9, s/p IVF in ER, will continue w/ IVF, repeat Lactic Acid. No evidence of sepsis, likely secondary to dehydration. Repeat lactic acid now. 5. Rhabdomyolysis: Mild. continue to monitor clinically 6. Alcohol Abuse: Drinks daily, unable to quantify. High risk for withdrawal. CIWA, Seizure Precautions, MVT/Thiamine/Folate replacement. Pt has been extensively counseled on quitting drinking 7. Tobacco Abuse: Pt counselled. NicoDerm/Ativan prn if needed. 8. DVT Prophylaxis: SCD/Teds. heparin Discharge Planning once sodium levels corrected and stable Agnes Montoya MD Nov 20, 2016 12:17
[2016-11-20 12:40] LABS: BICARBONATE 29.8 MEQ/L (21.0-32.0); POTASSIUM 3.5 MEQ/L (3.5-5.1)
[2016-11-20] MEDS: SODIUM CHLORIDE 1 GRAM TAB PO SCH ×2 (14:05→19:58)
[2016-11-20] MEDS: LACTOBACILLUS ACIDOPHILUS TAB PO SCH ×2 (14:05→18:10)
[2016-11-20 14:48] LABS: BICARBONATE 28.2 MEQ/L (21.0-32.0); POTASSIUM 3.7 MEQ/L (3.5-5.1)
[2016-11-20] MEDS: REMOVE OLD NICODERM (NICOTINE) PATCH T-DERMAL SCH (20:00)
[2016-11-20 22:32] LABS: BICARBONATE 28.7 MEQ/L (21.0-32.0)
[2016-11-20 22:35] LABS: POTASSIUM 4.6 MEQ/L (3.5-5.1)
[2016-11-20] MEDS: ACETAMINOPHEN 325 MG TAB PO PRN (22:46)
[2016-11-21] VITALS (7 sets, daily range): BP systolic 147–204; BP diastolic 75–112; PULSE 71–94; RESP 17–20; TEMP 96.2–97.2; O2SAT 94–100
[2016-11-21] MEDS ORDERED: cloNIDine HCL 0.1 MG TAB PO ONE (01:15)
[2016-11-21] MEDS: NYSTATIN 100,000 U/GM PWD 15 GM BTL TOPICAL SCH ×3 (05:10→20:23)
[2016-11-21 07:19] LABS: BICARBONATE 28.5 MEQ/L (21.0-32.0); POTASSIUM 3.5 MEQ/L (3.5-5.1)
[2016-11-21] MEDS: DOCUSATE SODIUM 50 MG/SENNA 8.6 MG TAB PO SCH ×2 (09:00→20:16)
[2016-11-21] MEDS: HEPARIN SODIUM - SQ 10,000 UNITS/ML VIAL SQ SCH ×2 (10:56→20:14)
[2016-11-21] MEDS: FOLIC ACID 1 MG TAB PO SCH (10:56)
[2016-11-21] MEDS: SODIUM CHLORIDE 1 GRAM TAB PO SCH ×2 (10:56→20:13)
[2016-11-21] MEDS: LACTOBACILLUS ACIDOPHILUS TAB PO SCH ×3 (10:56→17:51)
[2016-11-21] MEDS: THIAMINE HCL 100 MG TAB PO SCH (10:56)
[2016-11-21] MEDS: MULTIVITAMINS/MINERALS THERAPEUTIC TAB PO SCH (10:56)
[2016-11-21] MEDS: SODIUM CHLORIDE 0.9% FLUSH 10 ML FLUSH IV FLUSH SCH ×2 (10:57→20:16)
[2016-11-21] MEDS: FAMOTIDINE 20 MG/2 ML VIAL IV PUSH SCH ×2 (10:57→20:14)
[2016-11-21] MEDS: NICOTINE 21 MG/24 HR PATCH T-DERMAL SCH (10:57)
[2016-11-21] MEDS: LORazepam 1 MG TAB PO PRN (11:03)
[2016-11-21] MEDS: SODIUM CHLOR 0.9% 1000 ML INJ 1,000 ML IV SCH ×2 (13:30→20:23)
--- NOTE | 2016-11-21 16:11 | HHI.PR ---
Subjective Remarks Written by Suzie Garcia, acting as scribe for Dr. Montoya on 11/21/16 at 16:03. Follow up hyponatremia, chest pain, n/v, lactic acidosis. Patient seen and examined, sitting on side of bed in nad. RN at bedside. Pleasantly confused. Denies any new acute complaints overnight. Denies any fever, chills, cough, ab pain, n/v/d or dysuria. Does admit to occasional loose stools. No tremors noted. Objective Vitals Vital Signs Date Time Temp Pulse Resp B/P (MAP) Pulse Ox O2 Delivery O2 Flow Rate FiO2 11/21/16 12:00 97.0 71 18 149/87 (107) 99 11/21/16 08:00 97.2 88 18 147/112 (124) 99 11/21/16 04:00 96.8 94 17 162/98 (119) 96 11/21/16 00:00 96.3 92 18 204/75 (118) 94 11/20/16 20:00 96.7 88 21 207/104 (138) 100 11/20/16 19:56 93 I/O 11/20/16 11/20/16 11/20/16 11/21/16 11/21/16 11/21/16 07:00 15:00 23:00 07:00 15:00 23:00 Intake Total 1020 ml 600 ml 560 ml 480 ml Output Total 1200 ml 800 ml Balance -180 ml 600 ml 560 ml -320 ml Intake Oral 1020 ml 600 ml 560 ml 480 ml Output Urine Total 1200 ml 800 ml # Voids 4 3 # Bowel Movements 0 0 0 0 Result Diagram: 11/19/1620 11/21/16619 Imaging Last Impressions Abdomen/Pelvis CT 11/18/162107 Signed Impressions: Service Date/Time: Friday, November 18, 2016 21:35 - CONCLUSION: 1. Hepatomegaly and hepatic steatosis. 2. Atherosclerosis. 3. Diverticulosis. Chai Neville MD Chest X-Ray 11/18/161920 Signed Impressions: Service Date/Time: Friday, November 18, 2016 20:24 - CONCLUSION: No acute disease. Chai Neville MD CT Angiography 11/18/16 0000 Signed Impressions: Service Date/Time: Friday, November 18, 2016 21:35 - CONCLUSION: 1. Hepatomegaly and hepatic steatosis. 2. No evidence for pulmonary embolus. 3. Lung nodules. [address] chest recommended. Chai Neville MD Objective Remarks GENERAL: Middle-aged white male, disheveled and unkept. No tremors. Pleasantly confused. HEENT: EOMI. CARDIOVASCULAR: Regular rate and rhythm. No obvious murmurs to auscultation. RESPIRATORY: No obvious rhonchi or wheezing. Clear to auscultation. Breath sounds equal bilaterally. GASTROINTESTINAL: Abdomen soft, non-tender, nondistended. BS normal. MSK/NEUROLOGICAL: Awake, alert. no tremors. Moving both upper and lower extremities spontaneously. A/P Problem List: (1) Hyponatremia ICD Code: E87.1 - Hypo-osmolality and hyponatremia Status: Acute (2) Chest pain ICD Code: R07.9 - Chest pain, unspecified (3) Intractable nausea and vomiting ICD Code: R11.2 - Nausea with vomiting, unspecified (4) Lactic acidosis ICD Code: E87.2 - Acidosis Status: Acute (5) Rhabdomyolysis ICD Code: M62.82 - Rhabdomyolysis (6) Alcohol abuse ICD Code: F10.10 - Alcohol abuse, uncomplicated (7) Tobacco abuse ICD Code: Z72.0 - Tobacco use Assessment and Plan 1. Hyponatremia: Na 116 now up to 124 today likely secondary to chronic alcohol abuse in combination w/ dehydration from intractable nausea/vomiting which seems to have resolved. Similar episode 09/2014 per review of labs. continue to monitor Na levels, fluid restrict to 1500 as serum/urine osm low, Neuro Checks, Seizure Precautions. CTA Pulm negative for PE, noted to have multiple lung nodules w/ recommendation for 6 mo follow up. added 1tab sodium tab BID. HLIV. resumed NS at 75 ml/hr. 2. Chest Pain: Atypical. Likely GI etiology as c/o nausea/vomiting. CE negative x3, EKG w/ no acute ischemia. 3. Intractable NV: Lipase normal. Pepcid IV, analgesics as needed. IVF for hydration. CT Abd/Pelvis w/ no acute findings, +hepatic steatosis 4. Lactic Acidosis: Lactate 5.9 --> 2, s/p IVF in ER, will continue w/ IVF. No evidence of sepsis, likely secondary to dehydration. 5. Rhabdomyolysis: Mild. continue to monitor clinically. 6. Alcohol Abuse: Drinks daily, unable to quantify. High risk for withdrawal. CIWA, Seizure Precautions, MVT/Thiamine/Folate replacement. Pt has been extensively counseled on quitting drinking. No tremors. No signs of withdrawal at this time. 7. Tobacco Abuse: Pt counselled. NicoDerm/Ativan prn if needed. 8. DVT Prophylaxis: SCD/Teds. heparin This note was transcribed by ludin Garcia. I, Dr. Agnes Montoya personally performed the history, physical exam, and medical decision making; and confirmed the accuracy of the information in the transcribed note. Authenticated by Dr. Agnes Montoya on 11/21/16 at 16:03. Discharge Planning once sodium levels corrected and stable Suzie Garcia Nov 21, 2016 16:11 Agnes Montoya MD Nov 21, 2016 16:34
[2016-11-21 16:53] LABS: BICARBONATE 30.5 MEQ/L (21.0-32.0); POTASSIUM 4.3 MEQ/L (3.5-5.1)
[2016-11-21] MEDS: REMOVE OLD NICODERM (NICOTINE) PATCH T-DERMAL SCH (20:22)
[2016-11-21 22:16] LABS: BICARBONATE 29.4 MEQ/L (21.0-32.0); POTASSIUM 3.4 MEQ/L (3.5-5.1)
[2016-11-22] VITALS: BP 163/92; PULSE 102; RESP 18; TEMP 97.7; O2SAT 95
[2016-11-22] MEDS: SODIUM CHLOR 0.9% 1000 ML INJ 1,000 ML IV SCH (01:02)
[2016-11-22] MEDS ORDERED: cloNIDine HCL 0.1 MG TAB PO ONE (01:45)
[2016-11-22 04:00] VITALS: BP 149/92; PULSE 84; RESP 16; TEMP 97.5; O2SAT 99
[2016-11-22 04:28] LABS: BICARBONATE 26.9 MEQ/L (21.0-32.0); POTASSIUM 3.8 MEQ/L (3.5-5.1)
[2016-11-22] MEDS: NYSTATIN 100,000 U/GM PWD 15 GM BTL TOPICAL SCH ×3 (06:00→22:54)
[2016-11-22 08:00] VITALS: BP 144/94; PULSE 78; PULSE 84; RESP 20; TEMP 96.4; O2SAT 100
[2016-11-22] MEDS: LACTOBACILLUS ACIDOPHILUS TAB PO SCH ×3 (08:29→18:05)
[2016-11-22] MEDS: FOLIC ACID 1 MG TAB PO SCH (08:29)
[2016-11-22] MEDS: FAMOTIDINE 20 MG/2 ML VIAL IV PUSH SCH ×2 (08:29→20:27)
[2016-11-22] MEDS: THIAMINE HCL 100 MG TAB PO SCH (08:29)
[2016-11-22] MEDS: MULTIVITAMINS/MINERALS THERAPEUTIC TAB PO SCH (08:29)
[2016-11-22] MEDS: SODIUM CHLORIDE 1 GRAM TAB PO SCH ×2 (08:29→20:25)
[2016-11-22] MEDS: HEPARIN SODIUM - SQ 10,000 UNITS/ML VIAL SQ SCH ×2 (08:29→20:28)
[2016-11-22] MEDS: NICOTINE 21 MG/24 HR PATCH T-DERMAL SCH (08:30)
[2016-11-22] MEDS: DOCUSATE SODIUM 50 MG/SENNA 8.6 MG TAB PO SCH ×2 (08:30→20:29)
[2016-11-22] MEDS: SODIUM CHLORIDE 0.9% FLUSH 10 ML FLUSH IV FLUSH SCH ×2 (08:30→20:29)
[2016-11-22 11:39] LABS: BICARBONATE 27.5 MEQ/L (21.0-32.0); POTASSIUM 3.9 MEQ/L (3.5-5.1)
[2016-11-22 12:00] VITALS: BP_SYST 138; BP_SYST 164; BP_DIAS 71; BP_DIAS 97; PULSE 78; RESP 16; RESP 20; TEMP 97; TEMP 97.6; O2SAT 97; O2SAT 98
--- NOTE | 2016-11-22 13:05 | HHI.PR ---
Subjective Remarks Patient states that he still feels foggy upset about the fluid restriction denies cp/sob denies hallucinations or tremors Objective Vitals Vital Signs Date Time Temp Pulse Resp B/P (MAP) Pulse Ox O2 Delivery O2 Flow Rate FiO2 11/22/16 08:00 96.4 84 20 144/94 (111) 100 11/22/16 04:00 97.5 84 16 149/92 (111) 99 11/22/16 00:00 97.7 102 18 163/92 (115) 95 11/21/16 20:11 93 11/21/16 19:35 96.2 86 20 189/104 (132) 97 11/21/16 15:55 97.0 93 18 177/107 (130) 100 I/O 11/21/16 11/21/16 11/21/16 11/22/16 11/22/16 11/22/16 07:00 15:00 23:00 07:00 15:00 23:00 Intake Total 480 ml 750 ml 480 ml 1855 ml Output Total 800 ml 600 ml 650 ml Balance -320 ml 750 ml -120 ml 1205 ml Intake Oral 480 ml 750 ml 480 ml 480 ml IV Total 1375 ml Output Urine Total 800 ml 600 ml 650 ml # Voids 4 # Bowel Movements 0 0 0 0 Result Diagram: 11/19/16 0620 11/22/16 1043 Imaging Last Impressions Abdomen/Pelvis CT 11/18/162107 Signed Impressions: Service Date/Time: Friday, November 18, 2016 21:35 - CONCLUSION: 1. Hepatomegaly and hepatic steatosis. 2. Atherosclerosis. 3. Diverticulosis. Chai Neville MD Chest X-Ray 11/18/16 192 Signed Impressions: Service Date/Time: Friday, November 18, 2016 20:24 - CONCLUSION: No acute disease. Chai Neville MD CT Angiography 11/18/16 0000 Signed Impressions: Service Date/Time: Friday, November 18, 2016 21:35 - CONCLUSION: 1. Hepatomegaly and hepatic steatosis. 2. No evidence for pulmonary embolus. 3. Lung nodules. [address] chest recommended. Chai Neville MD Objective Remarks GENERAL: Middle-aged white male, disheveled and unkept. No tremors. Pleasantly confused. CARDIOVASCULAR: Regular rate and rhythm. No obvious murmurs to auscultation. RESPIRATORY: No obvious rhonchi or wheezing. Clear to auscultation. Breath sounds equal bilaterally. GASTROINTESTINAL: Abdomen soft, non-tender, nondistended. BS normal. MSK/NEUROLOGICAL: Awake, alert. no tremors. Moving both upper and lower extremities spontaneously. Medications and IVs Current Medications Medications (Trade) Dose Ordered Sig/Gwen Route Start Time Stop Time Status Last Admin (NS Flush) 2 ml UNSCH PRN IV FLUSH 11/18/16 19:30 11/18/16 19:53 (Pepcid Inj) 20 mg Q12H IV PUSH 11/19/16 09:00 11/22/16 08:29 (Folate) 1 mg DAILY PO 11/19/16 09:00 11/24/16 08:59 11/22/16 08:29 (Vitamin B1) 100 mg DAILY PO 11/19/16 09:00 11/22/16 08:29 (Theragran M Tab) 1 tab DAILY PO 11/19/16 09:00 11/24/16 08:59 11/22/16 08:29 (Romazicon Inj) 0.2 mg Q1M PRN IV PUSH 11/18/16 22:30 (Ativan) 1 mg Q4H PRN PO 11/18/16 22:30 11/21/16 11:03 (Ativan Inj) 1 mg Q4H PRN IV PUSH 11/18/16 22:30 (Ativan) 2 mg Q2H PRN PO 11/18/16 22:30 (Ativan Inj) 2 mg Q2H PRN IV PUSH 11/18/16 22:30 11/21/16 16:21 (Ativan Inj) 2 mg Q1H PRN IV PUSH 11/18/16 22:30 (Ativan Inj) 2 mg Q15M PRN IV PUSH 11/18/16 22:30 (Haldol Inj) 2 mg Q15M PRN IM 11/18/16 22:30 (NS Flush) 2 ml UNSCH PRN IV FLUSH 11/18/16 22:30 (NS Flush) 2 ml BID IV FLUSH 11/19/16 09:00 11/21/16 20:16 (Zofran Inj) 4 mg Q6H PRN IVP 11/18/16 22:30 (Tylenol) 650 mg Q6H PRN PO 11/18/16 22:30 11/20/16 22:46 (Roxicodone) 10 mg Q4H PRN PO 11/18/16 22:30 (Roxicodone) 5 mg Q4H PRN PO 11/18/16 22:30 11/21/16 22:06 (Martina-Colace) 1 tab BID PO 11/19/16 09:00 11/20/16 19:58 (Milk Of Magnesia Liq) 30 ml Q12H PRN PO 11/18/16 22:30 11/20/16 19:58 (Senokot) 17.2 mg Q12H PRN PO 11/18/16 22:30 (Dulcolax Supp) 10 mg DAILY PRN RECTAL 11/18/16 22:30 (Lactulose Liq) 30 ml DAILY PRN PO 11/18/16 22:30 (Heparin Inj) 5,000 units Q12HR SQ 11/19/16 21:00 11/22/16 08:29 (Mycostatin Powder) 1 applic Q8HR TOPICAL 11/19/16 14:00 11/22/16 13:16 (Habitrol 21 Mg Patch.24 Hr) 1 patch DAILY T-DERMAL 11/20/16 09:00 11/22/16 08:30 Miscellaneous Information 1 HS T-DERMAL 11/20/16 21:00 11/21/16 20:22 (Sodium Chloride) 1 gm BID PO 11/20/16 12:00 11/22/16 08:29 (Lactinex) 1 tab TID PO 11/20/16 13:00 11/22/16 13:11 (Librium) 10 mg QID PO 11/22/16 09:00 11/22/16 13:11 A/P Problem List: (1) Hyponatremia ICD Code: E87.1 - Hypo-osmolality and hyponatremia Status: Acute (2) Chest pain ICD Code: R07.9 - Chest pain, unspecified Status: Resolved (3) Intractable nausea and vomiting ICD Code: R11.2 - Nausea with vomiting, unspecified Status: Resolved (4) Lactic acidosis ICD Code: E87.2 - Acidosis Status: Acute (5) Rhabdomyolysis ICD Code: M62.82 - Rhabdomyolysis Status: Acute (6) Alcohol abuse ICD Code: F10.10 - Alcohol abuse, uncomplicated Status: Chronic (7) Tobacco abuse ICD Code: Z72.0 - Tobacco use Status: Chronic Assessment and Plan 1. Hyponatremia: 116 on admission likely secondary to chronic alcohol abuse in combination w/ dehydration from intractable nausea/vomiting which seems to have resolved. Sodium has been improving however it is slightly lower from 129-128 today. I will discontinue IV fluids that were started yesterday and consult nephrology. Sodium and urine osmolality are low. Continue to monitor BMP. Continue with fluid restriction and sodium chloride tablets 1 g by mouth twice a day. 2. Chest Pain: Atypical. Likely GI etiology as c/o nausea/vomiting. CE negative x3, EKG w/ no acute ischemia. CTA pulmonary negative for PE. Chest pain now resolved. 3. Intractable NV: Lipase normal. Pepcid IV, analgesics as needed. IVF for hydration. CT Abd/Pelvis w/ no acute findings, +hepatic steatosis 4. Lactic Acidosis: Lactate 5.9 --> 2, s/p IVF in ER, will continue w/ IVF. No evidence of sepsis, likely secondary to dehydration. 5. Rhabdomyolysis: Last total CK was 656 on 11/19. Will monitor CK. Patient is sp IV Fluids. 6. Alcohol Abuse: Drinks daily, unable to quantify. High risk for withdrawal. CIWA, Seizure Precautions, MVT/Thiamine/Folate replacement. Pt has been extensively counseled on quitting drinking. No tremors. No signs of withdrawal at this time. 7. Tobacco Abuse: Pt counselled. NicoDerm/Ativan prn if needed. 8. DVT Prophylaxis: SCD/Teds. heparin Discharge Planning Patient still hyponatremic pending nephrology consultation. Problem Qualifiers (1) Rhabdomyolysis: Qualified Codes: M62.82 - Rhabdomyolysis Anshul Conn MD Nov 22, 2016 13:05
[2016-11-22 13:45] VITALS: BP 178/102; PULSE 84; RESP 18; TEMP 96.2; O2SAT 100
--- NOTE | 2016-11-22 16:05 | PD.CONS ---
HPI Service Nephrology Consult Requested By Reason for Consult Hyponatremia Primary Care Physician [facility] History of Present Illness This is an obese and disheveled but pleasant 61 y/o male. He was admitted on 11/18 with serum Na of 116. It improved to 129 with IVF but is 128 today. He was admitted with ETOH level of 106, admits to drinking beer daily, 6-12 beers. His oral food and fluid intake was poor immediately prior to admission. Imaging shows lung nodules and radiologist recommends follow up imaging in 6 months. He is a daily smoker, is hypertensive here but not on medications at home. He does have edema to lower extremities, has normal renal function. He is a full code. Looking back in 2014 he was admitted with similar presentation, Na 117 that improved to 132 at discharge. At that time it was thought to be beer potomania vs water intoxication. (Sherin Obando) Review of Systems Constitutional: COMPLAINS OF: Weight gain, DENIES: Fatigue Gastrointestinal: DENIES: Abdominal pain, Constipation, Nausea Neurologic: DENIES: Abnormal gait (Sherin Obando) Past Family Social History Allergies: Coded Allergies: No Known Allergies (Unverified , 11/18/16) Past Medical History COPD Alcohol Abuse Tobacco Abuse Imaging shows: diverticulosis, hepatic steatosis, hepatomegaly Past Surgical History None reported Reported Medications Denies use of medications at home Active Ordered Medications Current Medications Medications (Trade) Dose Ordered Sig/Gwen Route Start Time Stop Time Status Last Admin (NS Flush) 2 ml UNSCH PRN IV FLUSH 11/18/16 19:30 11/18/16 19:53 (Pepcid Inj) 20 mg Q12H IV PUSH 11/19/16 09:00 11/22/16 08:29 (Folate) 1 mg DAILY PO 11/19/16 09:00 11/24/16 08:59 11/22/16 08:29 (Vitamin B1) 100 mg DAILY PO 11/19/16 09:00 11/22/16 08:29 (Theragran M Tab) 1 tab DAILY PO 11/19/16 09:00 11/24/16 08:59 11/22/16 08:29 (Romazicon Inj) 0.2 mg Q1M PRN IV PUSH 11/18/16 22:30 (Ativan) 1 mg Q4H PRN PO 11/18/16 22:30 11/21/16 11:03 (Ativan Inj) 1 mg Q4H PRN IV PUSH 11/18/16 22:30 (Ativan) 2 mg Q2H PRN PO 11/18/16 22:30 (Ativan Inj) 2 mg Q2H PRN IV PUSH 11/18/16 22:30 11/21/16 16:21 (Ativan Inj) 2 mg Q1H PRN IV PUSH 11/18/16 22:30 (Ativan Inj) 2 mg Q15M PRN IV PUSH 11/18/16 22:30 (Haldol Inj) 2 mg Q15M PRN IM 11/18/16 22:30 (NS Flush) 2 ml UNSCH PRN IV FLUSH 11/18/16 22:30 (NS Flush) 2 ml BID IV FLUSH 11/19/16 09:00 11/21/16 20:16 (Zofran Inj) 4 mg Q6H PRN IVP 11/18/16 22:30 (Tylenol) 650 mg Q6H PRN PO 11/18/16 22:30 11/20/16 22:46 (Roxicodone) 10 mg Q4H PRN PO 11/18/16 22:30 (Roxicodone) 5 mg Q4H PRN PO 11/18/16 22:30 11/21/16 22:06 (Martina-Colace) 1 tab BID PO 11/19/16 09:00 11/20/16 19:58 (Milk Of Magnesia Liq) 30 ml Q12H PRN PO 11/18/16 22:30 11/20/16 19:58 (Senokot) 17.2 mg Q12H PRN PO 11/18/16 22:30 (Dulcolax Supp) 10 mg DAILY PRN RECTAL 11/18/16 22:30 (Lactulose Liq) 30 ml DAILY PRN PO 11/18/16 22:30 (Heparin Inj) 5,000 units Q12HR SQ 11/19/16 21:00 11/22/16 08:29 (Mycostatin Powder) 1 applic Q8HR TOPICAL 11/19/16 14:00 11/22/16 13:16 (Habitrol 21 Mg Patch.24 Hr) 1 patch DAILY T-DERMAL 11/20/16 09:00 11/22/16 08:30 Miscellaneous Information 1 HS T-DERMAL 11/20/16 21:00 11/21/16 20:22 (Sodium Chloride) 1 gm BID PO 11/20/16 12:00 11/22/16 08:29 (Lactinex) 1 tab TID PO 11/20/16 13:00 11/22/16 13:11 (Librium) 10 mg QID PO 11/22/16 09:00 11/22/16 13:11 Family History He is unaware of any family hx of medical issues Social History Smokes daily since age 20 Drinks 6-12 beers/day Denies drug use Retired [employer] rents a room when asked about children, he says "I may have some I'm not sure" He is (Sherin Obando) Physical Exam Vital Signs Vital Signs Date Time Temp Pulse Resp B/P (MAP) Pulse Ox O2 Delivery O2 Flow Rate FiO2 11/22/16 08:00 96.4 84 20 144/94 (111) 100 11/22/16 04:00 97.5 84 16 149/92 (111) 99 11/22/16 00:00 97.7 102 18 163/92 (115) 95 11/21/16 20:11 93 11/21/16 19:35 96.2 86 20 189/104 (132) 97 11/21/16 15:55 97.0 93 18 177/107 (130) 100 Physical Exam Disheveled obese male Awake/alert, fidgeting but able to follow commands, fine hand tremor S1/S2, RRR no murmurs Lungs clear in all duque Abd: round, firm, non tender Ext 1+ edema, multiple scabs on legs and hands. Laboratory Laboratory Tests Test 11/21/16 15:54 11/21/16 21:29 11/22/16 03:34 11/22/16 10:43 Blood Urea Nitrogen 3 4 7 7 Creatinine 0.66 0.63 0.62 0.63 Random Glucose 94 105 110 94 Calcium Level 8.8 8.8 8.5 9.0 Sodium Level 123 129 128 128 Potassium Level 4.3 3.4 3.8 3.9 Chloride Level 88 91 93 92 Carbon Dioxide Level 30.5 29.4 26.9 27.5 Anion Gap 5 9 8 9 Estimat Glomerular Filtration Rate 123 129 132 129 (Sherin Obando) Result Diagram: 11/19/16 0620 11/22/16 1043 Imaging Last Impressions Abdomen/Pelvis CT 11/18/162107 Signed Impressions: Service Date/Time: Friday, November 18, 2016 21:35 - CONCLUSION: 1. Hepatomegaly and hepatic steatosis. 2. Atherosclerosis. 3. Diverticulosis. Chai Neville MD Chest X-Ray 11/18/16 1921 Signed Impressions: Service Date/Time: Friday, November 18, 2016 20:24 - CONCLUSION: No acute disease. Chai Neville MD CT Angiography 11/18/16 0000 Signed Impressions: Service Date/Time: Friday, November 18, 2016 21:35 - CONCLUSION: 1. Hepatomegaly and hepatic steatosis. 2. No evidence for pulmonary embolus. 3. Lung nodules. [address] chest recommended. Chai Neville MD (Sherin Obando) Assessment and Plan Problem List: (1) Hyponatremia ICD Codes: E87.1 - Hypo-osmolality and hyponatremia Status: Acute Plan: Acute, recurrent Low urine sodium suggesting hypovolemic hyponatremia, that initially improved with IVF Overnight has had minimal improvement, may have mixed picture Thought to have low solute hyponatremia due to ETOH use Needs oral fluid restriction, discussed with the patient. IVF has been stopped I have also asked the nurse to feed the patient Due to the edema and hypertension, I will give a dose of Lasix. Repeat labs have been ordered Unlikely to have SIADH, although lung nodules have been found on imaging Check uric acid to complete the work up, repeat urine studies (sodium, osmolality) (2) Tobacco abuse ICD Codes: Z72.0 - Tobacco use Status: Chronic Plan: Cessation discussed Needs follow up imaging to evaluate lung nodules (3) Alcohol abuse ICD Codes: F10.10 - Alcohol abuse, uncomplicated Status: Chronic Plan: On CIWA protocol (Sherin Obando) Assessment and Plan patient was seen and examined. Low urine Osmolality is suggestive of low solute hyponatremia or beer potomania. Needs nutritional support, high protein diet. (Kenton Hernandez MD) Sherin Obando Nov 22, 2016 16:05 Kenton Hernandez MD Nov 22, 2016 18:06
[2016-11-22] MEDS ORDERED: FUROSEMIDE 20 MG/2 ML VIAL IV PUSH ONE (16:15)
[2016-11-22 16:29] LABS: BICARBONATE 30.4 MEQ/L (21.0-32.0); POTASSIUM 3.9 MEQ/L (3.5-5.1)
[2016-11-22 19:35] VITALS: BP 135/91; PULSE 102; RESP 18; TEMP 96.7; O2SAT 100
[2016-11-22] MEDS: ACETAMINOPHEN 325 MG TAB PO PRN (20:26)
[2016-11-22] MEDS: REMOVE OLD NICODERM (NICOTINE) PATCH T-DERMAL SCH (20:36)
[2016-11-22 22:50] LABS: BICARBONATE 28.7 MEQ/L (21.0-32.0); URIC ACID 5.1 MG/DL (2.6-7.2)
[2016-11-23] VITALS (7 sets, daily range): BP systolic 98–178; BP diastolic 74–96; PULSE 87–100; RESP 18–22; TEMP 96.8–98; O2SAT 95–100
[2016-11-23] MEDS: NYSTATIN 100,000 U/GM PWD 15 GM BTL TOPICAL SCH ×3 (06:16→21:18)
[2016-11-23 08:22] LABS: AUTOMATED NEUTROPHIL # 3.1 TH/MM3 (1.8-7.7); BASOPHIL % 0.4 % (0.0-2.0); EOSINOPHIL # 0.1 TH/MM3 (0-0.4); EOSINOPHIL % 1.8 % (0.0-4.0); HEMATOCRIT 36.5 % (39.0-51.0); HEMO FLAGS DIFF FINAL; LYMPH % 26.9 % (9.0-44.0); LYMPHOCYTE # 1.5 TH/MM3 (1.0-4.8); MEAN CELL VOLUME 97.5 FL (80.0-100.0); MEAN CORPUSCULAR HEMOGLOBIN 33.7 PG (27.0-34.0); MEAN CORPUSCULAR HGB CONC 34.6 % (32.0-36.0); MONO % 13.8 % (0.0-8.0); NEUT % 57.1 % (16.0-70.0); PLATELET COUNT 147 TH/MM3 (150-450); RED BLOOD COUNT 3.74 MIL/MM3 (4.50-5.90); RED CELL DISTRIBUTION WIDTH 13.3 % (11.6-17.2); WHITE BLOOD COUNT 5.4 TH/MM3 (4.0-11.0)
[2016-11-23] MEDS: NICOTINE 21 MG/24 HR PATCH T-DERMAL SCH ×2 (09:00→17:28)
[2016-11-23 09:17] LABS: ANION GAP 8 MEQ/L (5-15); AST (GOT) 174 U/L (15-37); BICARBONATE 28.5 MEQ/L (21.0-32.0); BLOOD UREA NITROGEN 8 MG/DL (7-18); CHLORIDE 96 MEQ/L (98-107); GLOMERULAR FILTRATION RATE 113 ML/MIN (>89); MAGNESIUM 2.3 MG/DL (1.5-2.5); POTASSIUM 3.6 MEQ/L (3.5-5.1); SODIUM (NA) 132 MEQ/L (136-145)
[2016-11-23 09:21] LABS: ALKALINE PHOSPHATASE 64 U/L (45-117); ALT (GPT) 225 U/L (12-78); CREATINE KINASE 105 U/L (39-308); TOTAL BILIRUBIN ADULT 0.5 MG/DL (0.2-1.0)
[2016-11-23] MEDS: LACTOBACILLUS ACIDOPHILUS TAB PO SCH ×3 (10:02→17:26)
[2016-11-23] MEDS: MULTIVITAMINS/MINERALS THERAPEUTIC TAB PO SCH (10:02)
[2016-11-23] MEDS: DOCUSATE SODIUM 50 MG/SENNA 8.6 MG TAB PO SCH ×2 (10:02→20:57)
[2016-11-23] MEDS: FOLIC ACID 1 MG TAB PO SCH (10:02)
[2016-11-23] MEDS: HEPARIN SODIUM - SQ 10,000 UNITS/ML VIAL SQ SCH ×2 (10:03→20:57)
[2016-11-23] MEDS: THIAMINE HCL 100 MG TAB PO SCH (10:03)
[2016-11-23] MEDS: SODIUM CHLORIDE 1 GRAM TAB PO SCH ×2 (10:03→21:16)
[2016-11-23] MEDS: FAMOTIDINE 20 MG/2 ML VIAL IV PUSH SCH ×2 (10:03→21:17)
[2016-11-23] MEDS: SODIUM CHLORIDE 0.9% FLUSH 10 ML FLUSH IV FLUSH SCH ×2 (10:14→21:17)
--- NOTE | 2016-11-23 12:09 | HHI.NPPN ---
Subjective Interval History Sitting on edge of bed, awake and alert. Sodium has improved. (Sherin Obando) Objective Data Data Vital Signs Date Time Temp Pulse Resp B/P (MAP) Pulse Ox O2 Delivery O2 Flow Rate FiO2 11/23/16 08:00 98.0 97 18 133/74 (93) 98 11/23/16 06:16 97.7 100 22 178/96 (123) 95 11/23/16 00:49 97.8 95 20 145/84 (104) 96 11/22/16 19:35 96.7 102 18 135/91 (106) 100 11/22/16 13:45 96.2 84 18 178/102 (127) 100 (Sherin Obando) -: 11/23/16 0625 11/23/16 0625 Physical Exam General Appearance: Well Developed, No Acute Distress, Comfortable, Malnourished (Sherin Obando) Eyes Eye Exam: Pupils Equal (Sherin Obando) Throat Throat Exam: Oral Mucosa [place] & Moist (Sherin Obando) Pulmonary Resp Exam: Clear Bilaterally, Breath Sounds Equal (Sherin Obando) Cardiology CV Exam: Regular, Normal Sinus Rhythm (Sherin Obando) Gastrointestinal/Abdomen GI Exam: Soft, Non-Tender, Bowel Sounds Present (Sherin Obando) Musculoskeletal MS Exam: Joints Intact, Normal Tone (Sherin Obando) Integumentary Skin Exam: Warm, Dry Skin Remarks multiple circular sores on left knee, left arm. (Sherin Obando) Extremeties Extremities Exam: Pedal Pulses Palpable, Trace Edema (Sherin Obando) Neurologic Neuro Exam: Awake, Oriented, Speech Clear, Moving All Extremities (Sherin Obando) Psychiatric Psych Exam: Appropriate Responses (Sherin Obando) Assessment/Plan Discussed Condition With: Patient Electrolyte Assessment: Hyponatremia Problem List: (1) Hyponatremia ICD Codes: E87.1 - Hypo-osmolality and hyponatremia Status: Acute Plan: Acute, recurrent Low urine osmolality suggesting low solute hyponatremia due to ETOH use On oral fluid restriction, discussed with the patient. Sodium has improved He has preserved renal function Avoid IVF, encourage food intake. I have also asked the nurse to feed the patient (2) Tobacco abuse ICD Codes: Z72.0 - Tobacco use Status: Chronic Plan: Cessation discussed Needs follow up imaging to evaluate lung nodules (3) Alcohol abuse ICD Codes: F10.10 - Alcohol abuse, uncomplicated Status: Chronic Plan: On CIVT protocol Plan We will sign off at this time. Call us if needed (Sherin Obando) Plan patient was seen and examined. Agree with above assessment and plan. Hyponatremia has improved. Continue current management. We will sign off at this time. (Kenton Hernandez MD) Sherin Obando Nov 23, 2016 12:09 Kenton Hernandez MD Nov 23, 2016 16:57
--- NOTE | 2016-11-23 14:10 | HHI.PR ---
Subjective Remarks Patient ststes he feels much better wants to go home denies hallucinations Bp on the lower side patient also c/o pain in the bottom of the feet. Objective Vitals Vital Signs Date Time Temp Pulse Resp B/P (MAP) Pulse Ox O2 Delivery O2 Flow Rate FiO2 11/23/16 08:00 98.0 97 18 133/74 (93) 98 11/23/16 06:16 97.7 100 22 178/96 (123) 95 11/23/16 00:49 97.8 95 20 145/84 (104) 96 11/22/16 19:35 96.7 102 18 135/91 (106) 100 I/O 11/22/16 11/22/16 11/22/16 11/23/16 11/23/16 11/23/16 06:59 14:59 22:59 06:59 14:59 22:59 Intake Total 1855 ml 1225 ml 960 ml Output Total 650 ml 950 ml 2050 ml 550 ml Balance 1205 ml 275 ml -1090 ml -550 ml Intake Oral 480 ml 600 ml 960 ml IV Total 1375 ml 625 ml Output Urine Total 650 ml 950 ml 2050 ml 550 ml # Bowel Movements 0 Result Diagram: 11/23/1662411/23/16624 Objective Remarks GENERAL: Middle-aged white male, disheveled and unkept. No tremors. awake and alert CARDIOVASCULAR: Regular rate and rhythm. No obvious murmurs to auscultation. RESPIRATORY: No obvious rhonchi or wheezing. Clear to auscultation. Breath sounds equal bilaterally. GASTROINTESTINAL: Abdomen soft, non-tender, nondistended. BS normal. MSK/NEUROLOGICAL: Awake, alert. no tremors. Moving both upper and lower extremities spontaneously. Urinary Catheter: No Vascular Central Line Catheter: No A/P Problem List: (1) Hyponatremia ICD Code: E87.1 - Hypo-osmolality and hyponatremia Status: Acute (2) Chest pain ICD Code: R07.9 - Chest pain, unspecified Status: Resolved (3) Intractable nausea and vomiting ICD Code: R11.2 - Nausea with vomiting, unspecified Status: Resolved (4) Lactic acidosis ICD Code: E87.2 - Acidosis Status: Resolved (5) Rhabdomyolysis ICD Code: M62.82 - Rhabdomyolysis Status: Resolved (6) Alcohol abuse ICD Code: F10.10 - Alcohol abuse, uncomplicated Status: Chronic (7) Tobacco abuse ICD Code: Z72.0 - Tobacco use Status: Chronic (8) Transaminitis ICD Code: R74.0 - Nonspecific elevation of levels of transaminase and lactic acid dehydrogenase [LDH] Status: Acute (9) Pain in both feet ICD Code: M79.671 - Pain in right foot; M79.672 - Pain in left foot Plan: Suspect due to neuropthy 2/2 alcohol. Continue thiamine and folate supplementation. Will also start on gabapentin. Assessment and Plan 1. Hyponatremia: 116 on admission likely secondary to chronic alcohol abuse in combination w/ dehydration from intractable nausea/vomiting which seems to have resolved. Sodium has been improving however it is slightly lower from 129-128 today. I will discontinue IV fluids that were started yesterday and consult nephrology. Sodium and urine osmolality are low. Continue to monitor BMP. Continue with fluid restriction and sodium chloride tablets 1 g by mouth twice a day. 11/23 Sodium 132 and improving. Continue to monitor BMP. Continue fluid restriction and sodium chloride tablets. 2. Chest Pain: Atypical. Likely GI etiology as c/o nausea/vomiting. CE negative x3, EKG w/ no acute ischemia. CTA pulmonary negative for PE. Chest pain now resolved. 3. Intractable NV: Lipase normal. Pepcid IV, analgesics as needed. IVF for hydration. CT Abd/Pelvis w/ no acute findings, +hepatic steatosis 4. Lactic Acidosis: Lactate 5.9 --> 2, s/p IVF in ER, will continue w/ IVF. No evidence of sepsis, likely secondary to dehydration. 5. Rhabdomyolysis: Last total CK was 656 on 11/19. Will monitor CK. Patient is sp IV Fluids. 11/23 ck within normal range. 6. Alcohol Abuse: Drinks daily, unable to quantify. High risk for withdrawal. CIWA, Seizure Precautions, MVT/Thiamine/Folate replacement. Pt has been extensively counseled on quitting drinking. No tremors. No signs of withdrawal at this time. Patie 11/23 Patient being treated with librium 10 mg QID, will taper dose to three times a day. 7. Tobacco Abuse: Pt counselled. NicoDerm/Ativan prn if needed. 8. DVT Prophylaxis: SCD/Teds. heparin 10. Transaminitis. Worsening ALT and AST. CT abdomen and pelvis shows hepatic steatosis. Continue to monitor LFT's. Check hepatitis profile. Discharge Planning Pending nephrology clearance, pending improvement of transaminases. Possible DC in am. Problem Qualifiers (1) Rhabdomyolysis: Qualified Codes: M62.82 - Rhabdomyolysis Anshul Conn MD Nov 23, 2016 14:10
[2016-11-23] MEDS: REMOVE OLD NICODERM (NICOTINE) PATCH T-DERMAL SCH (21:18)
[2016-11-23] MEDS ORDERED: GABAPENTIN 100 MG CAP PO ONE (22:45)
[2016-11-24] VITALS: BP 176/97; PULSE 86; RESP 17; TEMP 97; O2SAT 97
[2016-11-24 04:00] VITALS: BP 152/74; PULSE 80; RESP 17; TEMP 98.2; O2SAT 96
[2016-11-24] MEDS: NYSTATIN 100,000 U/GM PWD 15 GM BTL TOPICAL SCH ×2 (06:04→14:00)
[2016-11-24 07:15] VITALS: BP 159/91; PULSE 82; RESP 21; TEMP 96.5
[2016-11-24] MEDS: SODIUM CHLORIDE 0.9% FLUSH 10 ML FLUSH IV FLUSH SCH (09:00)
[2016-11-24] MEDS: FAMOTIDINE 20 MG/2 ML VIAL IV PUSH SCH (09:00)
[2016-11-24] MEDS: NICOTINE 21 MG/24 HR PATCH T-DERMAL SCH (09:07)
[2016-11-24] MEDS: LACTOBACILLUS ACIDOPHILUS TAB PO SCH ×2 (09:08→14:00)
[2016-11-24] MEDS: DOCUSATE SODIUM 50 MG/SENNA 8.6 MG TAB PO SCH (09:08)
[2016-11-24] MEDS: SODIUM CHLORIDE 1 GRAM TAB PO SCH (09:08)
[2016-11-24] MEDS: THIAMINE HCL 100 MG TAB PO SCH (09:08)
[2016-11-24] MEDS: HEPARIN SODIUM - SQ 10,000 UNITS/ML VIAL SQ SCH (09:09)
[2016-11-24] MEDS: GABAPENTIN 100 MG CAP PO SCH ×2 (09:09→14:00)
[2016-11-24 09:32] LABS: ALKALINE PHOSPHATASE 66 U/L (45-117); ALT (GPT) 256 U/L (12-78); ANION GAP 7 MEQ/L (5-15); AST (GOT) 169 U/L (15-37); BICARBONATE 27.4 MEQ/L (21.0-32.0); BLOOD UREA NITROGEN 11 MG/DL (7-18); CHLORIDE 99 MEQ/L (98-107); GLOMERULAR FILTRATION RATE 100 ML/MIN (>89); POTASSIUM 3.8 MEQ/L (3.5-5.1); SODIUM (NA) 133 MEQ/L (136-145); TOTAL BILIRUBIN ADULT 0.4 MG/DL (0.2-1.0)
[2016-11-24 11:20] VITALS: BP 169/98; PULSE 97; RESP 20; TEMP 97; O2SAT 94
[2016-11-24] MEDS ORDERED: NICO21DI25 T-DERMAL (14:01)
[2016-11-24] MEDS ORDERED: GNP100TA3 PO (14:01)
[2016-11-24] MEDS ORDERED: SODI1TAB PO (14:01)
[2016-11-24] MEDS ORDERED: FOLI1TAB6 PO (14:01)
[2016-11-24] MEDS ORDERED: GABA100C4 PO (14:01)
--- NOTE | 2016-11-24 14:02 | HHI.DCPOC ---
Discharge Care Plan Diagnosis: (1) Neuropathy (2) Encephalopathy acute (3) Transaminitis (4) Rhabdomyolysis (5) Lactic acidosis (6) Intractable nausea and vomiting (7) Chest pain (8) Tobacco abuse (9) Hyponatremia (10) Alcohol abuse Goals to Promote Your Health * To prevent worsening of your condition and complications * To maintain your health at the optimal level Directions to Meet Your Goals Take your medications as prescribed Follow your dietary instruction Follow activity as directed Keep your appointments as scheduled Take your immunizations and boosters as scheduled If your symptoms worsen call your PCP, if no PCP go to Urgent Care Center or Emergency Room Smoking is Dangerous to Your Health. Avoid second hand smoke Call the 24-hour hour crisis hotline for domestic abuse at Anshul Conn MD Nov 24, 2016 14:02
--- NOTE | 2016-11-24 14:07 | HHI.FF ---
Face to Face Verification Diagnosis: (1) Pain in both feet (2) Transaminitis (3) Chest pain (4) Tobacco abuse (5) Rhabdomyolysis (6) Neuropathy (7) Hyponatremia (8) Lactic acidosis (9) Altered mental status (10) Alcohol abuse Physical Therapy Order: Improve ambulation, Strength and gait training Home Health Nursing Order: Signs/symptoms of disease process Nursing assessment with vital signs I have seen patient Emery Love on 11/24/16. My clinical findings support the need for the requested home health care services because: Need for psychosocial assistance High risk of falls I certify that my clinical findings support that this patient is homebound because: Unsteady gait/balance Need for psychosocial assistance Anshul Conn MD Nov 24, 2016 14:07
--- NOTE | 2016-11-24 14:11 | HHI.DS ---
Discharge Summary Admission Date Nov 18, 2016 at 22:14 Discharge Date: Nov 24, 2016 Admitting Diagnosis hyponatremia, lactic acidosis, alcohol use (1) Hyponatremia ICD Code: E87.1 - Hypo-osmolality and hyponatremia Status: Acute (2) Chest pain ICD Code: R07.9 - Chest pain, unspecified Status: Resolved (3) Intractable nausea and vomiting ICD Code: R11.2 - Nausea with vomiting, unspecified Status: Resolved (4) Lactic acidosis ICD Code: E87.2 - Acidosis Status: Resolved (5) Rhabdomyolysis ICD Code: M62.82 - Rhabdomyolysis Status: Resolved (6) Alcohol abuse ICD Code: F10.10 - Alcohol abuse, uncomplicated Status: Chronic (7) Tobacco abuse ICD Code: Z72.0 - Tobacco use Status: Chronic (8) Transaminitis ICD Code: R74.0 - Nonspecific elevation of levels of transaminase and lactic acid dehydrogenase [LDH] Status: Acute (9) Pain in both feet ICD Code: M79.671 - Pain in right foot; M79.672 - Pain in left foot Brief History - From Admission This is a 61-year-old male with PMH of HTN, COPD, Alcohol Abuse and Tobacco Abuse was brought to the ER by friend secondary to complaints of chest/ epigastric pain in addition to nausea and vomiting starting earlier today. Pt poor historian, history difficult to obtain. Denies fever, chills or cough. On arrival, BP 173/94, HR 105, O2 sat 95% on RA, Temp 99.3. Hemoglobin normal. Na 116. K+ normal. AG 18. Lactic Acid 5.9. CPK 586. Trop negative. Lipase normal. U/a negative. Alcohol 106. CXR w/ no acute findings. CTA Pulm negative for PE, +hepatic steatosis and lung nodules w/ recommendation for [address] Abd/Pelvis negative for acute findings, hepatic steatosis as before. S/p IVF in ER. CBC/BMP: 11/23/16 0625 11/24/16 0620 Significant Findings Laboratory Tests Test 11/21/16 15:54 11/21/16 21:29 11/22/16 03:34 11/22/16 10:43 Blood Urea Nitrogen 3 MG/DL (7-18) 4 MG/DL (7-18) Sodium Level 123 MEQ/L (136-145) 129 MEQ/L (136-145) 128 MEQ/L (136-145) 128 MEQ/L (136-145) Chloride Level 88 MEQ/L (98-107) 91 MEQ/L (98-107) 93 MEQ/L (98-107) 92 MEQ/L (98-107) Potassium Level 3.4 MEQ/L (3.5-5.1) Random Glucose 110 MG/DL (74-106) Test 11/22/16 15:47 11/22/16 16:42 11/22/16 21:53 11/23/16 06:25 Sodium Level 128 MEQ/L (136-145) 128 MEQ/L (136-145) 132 MEQ/L (136-145) Chloride Level 94 MEQ/L (98-107) 94 MEQ/L (98-107) 96 MEQ/L (98-107) Anion Gap 4 MEQ/L (5-15) Urine Osmolality 124 MOSM/KG (300-1300) Calcium Level 8.3 MG/DL (8.5-10.1) Red Blood Count 3.74 MIL/MM3 (4.50-5.90) Hemoglobin 12.6 GM/DL (13.0-17.0) Hematocrit 36.5 % (39.0-51.0) Platelet Count 147 TH/MM3 (150-450) Monocytes (%) (Auto) 13.8 % (0.0-8.0) Random Glucose 116 MG/DL (74-106) Aspartate Amino Transf (AST/SGOT) 174 U/L (15-37) Alanine Aminotransferase (ALT/SGPT) 225 U/L (12-78) Test 11/24/16 06:20 Random Glucose 136 MG/DL (74-106) Albumin 3.3 GM/DL (3.4-5.0) Aspartate Amino Transf (AST/SGOT) 169 U/L (15-37) Alanine Aminotransferase (ALT/SGPT) 256 U/L (12-78) Sodium Level 133 MEQ/L (136-145) Imaging Last Impressions Abdomen/Pelvis CT 11/18/162107 Signed Impressions: Service Date/Time: Friday, November 18, 2016 21:35 - CONCLUSION: 1. Hepatomegaly and hepatic steatosis. 2. Atherosclerosis. 3. Diverticulosis. Chai Neville MD Chest X-Ray 11/18/16 1921 Signed Impressions: Service Date/Time: Friday, November 18, 2016 20:24 - CONCLUSION: No acute disease. Chai Neville MD CT Angiography 11/18/16 0000 Signed Impressions: Service Date/Time: Friday, November 18, 2016 21:35 - CONCLUSION: 1. Hepatomegaly and hepatic steatosis. 2. No evidence for pulmonary embolus. 3. Lung nodules. [address] chest recommended. Chai Neville MD PE at Discharge GENERAL: Middle-aged white male, disheveled and unkept. No tremors. awake and alert CARDIOVASCULAR: Regular rate and rhythm. No obvious murmurs to auscultation. RESPIRATORY: No obvious rhonchi or wheezing. Clear to auscultation. Breath sounds equal bilaterally. GASTROINTESTINAL: Abdomen soft, non-tender, nondistended. BS normal. MSK/NEUROLOGICAL: Awake, alert. no tremors. Moving both upper and lower extremities spontaneously. Pt update on day of discharge Sodium seems to be slightly improving. ALT and AST are stable with AST 169 and ALT at 256. The patient was told that he needs follow-up of his elevation in liver enzymes. I will discharge the patient with a follow-up CMP should be followed up with his premature physician at the [facility]. The patient denies any nausea, vomiting, abdominal pain, has good appetite and is tolerating diet at this time. I discussed the case with the nephrology PA stated that the patient could be discharge and that they had actually signed off. Patient was given instructions to stop drinking alcohol and also smoking. Nicotine patch will be prescribed upon discharge. Pt Condition on Discharge: Stable Discharge Disposition: Disch w/ Home Health Serv Discharge Instructions DIET: Follow Instructions for: As Tolerated, No Restrictions Activities you can perform: Regular-No Restrictions Activities to Avoid: Prolonged Standing, Strenuous Activity Follow up Referrals: PCP Follow-up - 1 Week with [facility] Needs liver function tests to be ordered and followed. CT abdomen and pelvis showed hepatomegaly and hepatic steatosis. New Medications: Folic Acid (Folic Acid) 1 Mg Tablet 1 MG PO DAILY for Alcohol Detox, #31 TAB-CAP Gabapentin (Gabapentin) 100 Mg Cap 100 MG PO TID for neuropathy, #93 CAP Nicotine (Eq Nicotine) 21 Mg/24 Hour Dis 1 PATCH T-DERMAL DAILY for tobacco use, #14 PATCH Sodium Chloride (Sodium Chloride) 1 Gram Tab 1 GM PO BID for low sodium, #60 TAB Thiamine HCl (Gnp Vitamin B-1) 100 Mg Tab 100 MG PO DAILY for Alcohol Detox, #31 TAB Anshul Conn MD Nov 24, 2016 14:11
== END 2016-11-24 14:46 | disposition home health service (06) | DRG 641 ==
LOC: NEPC 19:07 → NEDA 22:14 → N06A 11-19 00:36
PROVIDERS: ADMIT Hospitalist; ATTEND Hospitalist
DX: E87.1 Hypo-osmolality and hyponatremia (principal); M62.82 Rhabdomyolysis; E86.0 Dehydration; E87.2 Acidosis; G62.1 Alcoholic polyneuropathy; K21.9 Gastro-esophageal reflux disease without esophagitis; F17.210 Nicotine dependence, cigarettes, uncomplicated; M19.90 Unspecified osteoarthritis, unspecified site; K57.90 Diverticulosis of intestine, part unspecified, without perforation or abscess without bleeding; Y90.5 Blood alcohol level of 100-119 mg/100 ml; F10.10 Alcohol abuse, uncomplicated; R07.89 Other chest pain; R91.8 Other nonspecific abnormal finding of lung field; J44.9 Chronic obstructive pulmonary disease, unspecified; R11.2 Nausea with vomiting, unspecified; I10 Essential (primary) hypertension; E11.9 Type 2 diabetes mellitus without complications; J45.909 Unspecified asthma, uncomplicated; E66.9 Obesity, unspecified; K76.0 Fatty (change of) liver, not elsewhere classified; M79.671 Pain in right foot; M79.672 Pain in left foot
CPT/HCPCS: 71010; 71275; 74177; 76937; 80048; 80053; 80307; 81001; 82550; 82552; 82570; 82948; 83605; 83690; 83735; 83930; 83935; 84100; 84300; 84484; 84550; 85025; 93005; 96361; 96374; 96375; J1644; J1940; J2060; J2405; J7030; Q9963; Q9967

== ENCOUNTER 2016-12-24 23:13 | Inpatient (IN) | payer OTHER ==
[~2016-12-24] VITALS: Ht 182.9 cm; Wt 130.3 kg
[~2016-12-24 23:13] MED LIST: FOLI1TAB6 PO; GABA100C4 PO; NICO21DI25 T-DERMAL; SODI1TAB PO; THIA100 PO
[2016-12-24 23:17] VITALS: BP 138/93; PULSE 88; RESP 28; TEMP 97.7; O2SAT 99
[2016-12-25] VITALS (7 sets, daily range): BP systolic 151–184; BP diastolic 91–101; PULSE 85–94; RESP 18–19; TEMP 96–97.8; O2SAT 93–97
--- NOTE | 2016-12-25 00:17 | PD ---
HPI Chief Complaint: Respiratory Distress Time Seen by Provider: 23:57 Travel History International Travel<30 days: No Contact w/Intl Traveler<30days: No Traveled to known affect area: No History of Present Illness HPI The patient is a 61 year old male who presents to the [facility] emergency department with a history of shortness of breath, dry mouth, dizziness, and diarrhea that began earlier today. He has had diarrhea x 2 today. His stool is dark brown in color. He has had a scratchy throat with a dry cough that also began earlier today. The patient is a smoker, however he is attempting to quit. He is down to smoking two cigarettes per day. He denies any chest pain. He denies any vomiting. According to the record, the patient was recently admitted to the hospital from November 18 through November 24 related to hyponatremia, lactic acidosis, alcohol abuse, and rhabdomyolysis. The patient reports a prior history of asthma, he denies being on any inhalers recently. On review of systems otherwise, the patient denies having any known recent fevers, neck pain, abdominal pain, or neurologic symptoms. He reports that since arriving in the emergency department he did develop dysuria. He denies having any urinary frequency or urgency. FOR[facility]LY [facility] Past Medical History Narrative Medical The patient's past medical history is significant for arthritis, asthma, diabetes, hypertension, tobacco abuse, hyponatremia. PCP: JAZMYN Arthritis: Yes Asthma: Yes Diabetes: Yes Patient Takes Glucophage: No Hypertension: Yes Tetanus Vaccination: Unknown Past Surgical History Narrative Surgical The patient's past surgical history is significant for eye surgery, oral surgery Eye Surgery: Yes Oral Surgery: Yes Social History Alcohol Use: Yes (1-2 beers per day) Tobacco Use: Yes (2 cigs/ day) Substance Use: No Allergies-Medications (Allergen,Severity, Reaction): Coded Allergies: No Known Allergies (Unverified Adverse Reaction, Unknown, 12/24/16) Reported Meds & Prescriptions Reported Meds & Active Scripts Active Folic Acid 1 Mg Tablet 1 Mg PO DAILY Gnp Vitamin B-1 (Thiamine HCl) 100 Mg Tab 100 Mg PO DAILY Sodium Chloride 1 Gram Tab 1 Gm PO BID Gabapentin 100 Mg Cap 100 Mg PO TID Eq Nicotine (Nicotine) 21 Mg/24 Hour Dis 1 Patch T-DERMAL DAILY Review of Systems Except as stated in HPI: all other systems reviewed are Neg General / Constitutional: No: Fever Eyes: No: Visual changes HENT: Positive: Sore Throat, Congestion, No: Headaches, Rhinorrhea Cardiovascular: Positive: Dyspnea on exertion, No: Chest Pain or Discomfort Respiratory: Positive: Cough, No: Shortness of Breath Gastrointestinal: Positive: Diarrhea, No: Nausea, Vomiting, Abdominal Pain Genitourinary: No: Dysuria Musculoskeletal: No: Pain Skin: No Rash Neurologic: Positive: Dizziness, No: Weakness, Focal Abnormalities, Change in Mentation, Slurred Speech, Sensory Disturbance Psychiatric: No: Depression Endocrine: No: Polydipsia Hematologic/Lymphatic: No: Easy Bruising Physical Exam Narrative General: The patient is a well-developed well-nourished male in no acute distress. Head and Neck exam: Head is normocephalic atraumatic. Eyes: EOMI, pupils are equal round and reactive to light. Nose: Midline septum with pink mucous membranes Mouth: Dentition unremarkable. Moist mucus membranes. Posterior oropharynx is not erythematous. No tonsillar hypertrophy. Uvula midline. Airway patent. Neck: No palpable lymphadenopathy. No nuchal rigidity. No thyromegaly. Cardiovascular: Regular rate and rhythm without murmurs, gallops, or rubs. Lungs: Soft expiratory wheezes audible. No rhonchi, no crackles. The patient has some accessory muscle use noted. No paroxysmal abdominal breathing. No tripoding. Abdomen: Soft, without tenderness to palpation in all 4 quadrants of the abdomen. No guarding, rebound, or rigidity. Normal bowel sounds are audible. No tenderness on palpation of McBurney's point. Extremities: No clubbing, cyanosis, or edema. 2+ pulses in all 4 extremities. No calf tenderness on palpation. Back: No costovertebral angle tenderness to palpation. Neurologic Exam: Grossly nonfocal. Skin Exam: No rash noted. Intact skin that is warm and dry. Data Data Last Documented VS Vital Signs Date Time Temp Pulse Resp B/P (MAP) Pulse Ox O2 Delivery O2 Flow Rate FiO2 12/24/16 23:17 97.7 88 28 138/93 (108) 99 Room Air Orders Orders Electrocardiogram (12/25/16 00:40) Complete Blood Count With Diff (12/25/16 00:40) Comprehensive Metabolic Panel (12/25/16 00:40) Creatine Kinase (Cpk) (12/25/16 00:40) Ckmb (Isoenzyme) Profile (12/25/16 00:40) Troponin I (12/25/16 00:40) B-Type Natriuretic Peptide (12/25/16 00:40) Prothrombin Time / Inr (Pt) (12/25/16 00:40) Act Partial Throm Time (Ptt) (12/25/16 00:40) Lipase (12/25/16 00:40) Urinalysis - C+S If Indicated (12/25/16 00:40) D-Dimer (12/25/16 00:40) Magnesium (Mg) (12/25/16 00:40) Thyroid Stimulating Hormone (12/25/16 00:40) Chest, Single Ap (12/25/16 00:40) Iv Access Insert/Monitor (12/25/16 00:40) Ecg Monitoring (12/25/16 00:40) Oximetry (12/25/16 00:40) Sodium Chloride 0.9% Flush (Ns Flush) (12/25/16 01:15) Albuterol-Ipratropium Neb (Duoneb Neb) (12/25/16 01:15) Ct Pulmonary Angiogram (12/25/16 01:58) Methylprednisolone So Succ Inj (Solumedr (12/25/16 02:00) Enteric Path (Stool) (12/25/16 01:58) C Diff Toxin Pcr (12/25/16 01:58) Stool Wbc (Leukocytes) (12/25/16 01:58) Iohexol 350 Inj (Omnipaque 350 Inj) (12/25/16 02:34) Vancomycin Inj (Vancomycin Inj) (12/25/16 03:06) Cefepime Inj (Maxipime Inj) (12/25/16 03:06) Azithromycin Inj (Zithromax Inj) (12/25/16 03:06) Admit Order (Ed Use Only) (12/25/16 03:08) Labs Laboratory Tests Test 12/25/16 00:47 White Blood Count 6.0 TH/MM3 Red Blood Count 4.28 MIL/MM3 Hemoglobin 14.6 GM/DL Hematocrit 41.1 % Mean Corpuscular Volume 96.2 FL Mean Corpuscular Hemoglobin 34.1 PG Mean Corpuscular Hemoglobin Concent 35.5 % Red Cell Distribution Width 13.2 % Platelet Count 178 TH/MM3 Mean Platelet Volume 7.5 FL Neutrophils (%) (Auto) 60.6 % Lymphocytes (%) (Auto) 25.5 % Monocytes (%) (Auto) 10.0 % Eosinophils (%) (Auto) 3.3 % Basophils (%) (Auto) 0.6 % Neutrophils # (Auto) 3.6 TH/MM3 Lymphocytes # (Auto) 1.5 TH/MM3 Monocytes # (Auto) 0.6 TH/MM3 Eosinophils # (Auto) 0.2 TH/MM3 Basophils # (Auto) 0.0 TH/MM3 CBC Comment DIFF FINAL Differential Comment Prothrombin Time 10.6 SEC Prothromb Time International Ratio 1.0 RATIO Activated Partial Thromboplast Time 29.4 SEC D-Dimer Quantitative (PE/DVT) 0.26 MG/L FEU Urine Color LIGHT-YELLOW Urine Turbidity CLEAR Urine pH 6.0 Urine Specific [place] 1.003 Urine Protein NEG mg/dL Urine Glucose (UA) NEG mg/dL Urine Ketones NEG mg/dL Urine Occult Blood NEG Urine Nitrite NEG Urine Bilirubin NEG Urine Urobilinogen LESS THAN 2.0 MG/DL Urine Leukocyte Esterase NEG Urine RBC LESS THAN 1 /hpf Urine WBC 1 /hpf Microscopic Urinalysis Comment CULT NOT INDICATED Blood Urea Nitrogen 5 MG/DL Creatinine 0.64 MG/DL Random Glucose 107 MG/DL Total Protein 7.9 GM/DL Albumin 4.0 GM/DL Calcium Level 8.1 MG/DL Magnesium Level 1.7 MG/DL Alkaline Phosphatase 78 U/L Aspartate Amino Transf (AST/SGOT) 34 U/L Alanine Aminotransferase (ALT/SGPT) 47 U/L Total Bilirubin 0.3 MG/DL Sodium Level 129 MEQ/L Potassium Level 3.7 MEQ/L Chloride Level 95 MEQ/L Carbon Dioxide Level 23.0 MEQ/L Anion Gap 11 MEQ/L Estimat Glomerular Filtration Rate 127 ML/MIN Total Creatine Kinase 74 U/L Troponin I LESS THAN 0.02 NG/ML B-Type Natriuretic Peptide 24 PG/ML Lipase 112 U/L Thyroid Stimulating Hormone 3rd Gen 1.710 uIU/ML MDM Medical Decision Making Medical Screen Exam Complete: Yes Emergency Medical Condition: Yes Medical Record Reviewed: Yes Interpretation(s) Last Impressions CT Angiography 12/25/16 0158 Signed Impressions: Service Date/Time: Sunday, December 25, 2016 02:22 - CONCLUSION: Numerous small nodular infiltrates throughout the right upper lobe and the right lower lobe some of which appear to be cavitary. The nodules are between 4-6 mm with multiple new cavitary lesions since the November exam. Pulmonary consult is recommended. No evidence of pulmonary embolism Mich Menard MD Chest X-Ray 12/25/16 0040 Signed Impressions: Service Date/Time: Sunday, December 25, 2016 00:47 - CONCLUSION: Normal examination. Mich Menard MD Differential Diagnosis COPD exacerbation, versus pneumonia, versus acute coronary syndrome, versus pulmonary embolism Narrative Course During the course of the patients emergency department visit, the patients history, examination, and differential diagnosis were reviewed with the patient. The patient was placed on a case monitor with oximetry and frequent blood pressure monitoring. The patient had IV access obtained and blood work sent for analysis. The patient was initially provided a DuoNeb 2, Solu-Medrol 125 mg IV. The patients laboratory studies were reviewed and remarkable for a white count of 6, hemoglobin 14.6, platelets 178 with 10 monocytes. CMP is remarkable for sodium of 129, chloride 95, BUN 5, glucose 107, calcium 8.1, initial set of cardiac enzymes are negative, BNP 24, lipase 112, TSH 1.71, PT PTT within normal limits. Urinalysis within normal limits. Radiology studies were reviewed and remarkable for a chest x-ray that shows no acute abnormality. CTA to rule out PE that shows numerous small nodular infiltrate throughout the right upper lobe and right lower lobe some of which appear to be cavitary. The nodules are between 4-6 mm with multiple new cavitary lesions since prior November exam. Pulmonary consult is recommended. No evidence of PE. The patient was started on broad-spectrum antibiotics, blood cultures 2 were ordered, lactic acid was ordered. The patient had vancomycin added to his antibiotic regimen for pneumonia due to the possibility of MRSA pneumonia. The patients results were discussed with the patient, including the plan of care. I explained that further testing and/ or monitoring is indicated based on the patients history, examination, and/ or laboratory findings. Therefore, I recommended admission for additional evaluation. The patient expressed understanding and was agreeable with this plan. The patient was admitted to the hospital in stable condition and sent to a bed under the care of the [facility]. Sepsis Criteria SIRS Criteria (2 or more): RR > 20 or PaCO2 < 32 Physician Communication Physician Communication The patient's case including history, pertinent physical examination findings, and laboratory studies were discussed with Dr. Altman. It was agreed that the patient would be admitted to the [facility]. Diagnosis Primary Impression: Cavitary pneumonia Additional Impression: COPD exacerbation Admitting Information Admitting Physician Requests: Admit Briana Qureshi MD Dec 25, 2016 00:17
[2016-12-25 00:57] LABS: BLOOD, URINE NEG (NEG); GLUCOSE,URINE NEG (NEG); KETONE, URINE NEG (NEG); NITRITE,URINE NEG (NEG); URINE COLOR LIGHT-YELLOW (YELLW/STRAW)
[2016-12-25 00:58] LABS: AUTOMATED NEUTROPHIL # 3.6 TH/MM3 (1.8-7.7); BASOPHIL % 0.6 % (0.0-2.0); COMMENT (UR) CULT NOT INDICATED; CULTURE IF INDICATED CULT NOT INDICATED; EOSINOPHIL # 0.2 TH/MM3 (0-0.4); EOSINOPHIL % 3.3 % (0.0-4.0); HEMATOCRIT 41.1 % (39.0-51.0); HEMO FLAGS DIFF FINAL; LYMPH % 25.5 % (9.0-44.0); LYMPHOCYTE # 1.5 TH/MM3 (1.0-4.8); MEAN CELL VOLUME 96.2 FL (80.0-100.0); MEAN CORPUSCULAR HEMOGLOBIN 34.1 PG (27.0-34.0); MEAN CORPUSCULAR HGB CONC 35.5 % (32.0-36.0); NEUT % 60.6 % (16.0-70.0); PLATELET COUNT 178 TH/MM3 (150-450); RED BLOOD COUNT 4.28 MIL/MM3 (4.50-5.90); RED CELL DISTRIBUTION WIDTH 13.2 % (11.6-17.2)
--- NOTE | 2016-12-25 01:05 | RADRPT ---
EXAM DATE/TIME: 12/25/2016 00:47 [facility] COMPARISON: CHEST SINGLE AP, November 18, 2016, 20:24. INDICATIONS : Shortness of breath MEDICAL HISTORY : Hypertension. Hepatitis B. Diabetes mellitus type II. SURGICAL HISTORY : None. ENCOUNTER: Initial ACUITY: 1 day PAIN SCORE: 8/10 LOCATION: Bilateral chest FINDINGS: A single view of the chest demonstrates the lungs to be symmetrically aerated without evidence of mas s, infiltrate or effusion. The cardiomediastinal contours are unremarkable. Osseous structures are intact. CONCLUSION: Normal examination. Mich Menard MD on December 25, 2016 at 1:04 Board Certified Radiologist. This report was verified electronically.
[2016-12-25 01:11] LABS: ALT (GPT) 47 U/L (12-78); ANION GAP 11 MEQ/L (5-15); AST (GOT) 34 U/L (15-37); BLOOD UREA NITROGEN 5 MG/DL (7-18); CHLORIDE 95 MEQ/L (98-107); GLOMERULAR FILTRATION RATE 127 ML/MIN (>89); MAGNESIUM 1.7 MG/DL (1.5-2.5); POTASSIUM 3.7 MEQ/L (3.5-5.1); SODIUM (NA) 129 MEQ/L (136-145)
[2016-12-25 01:15] LABS: APTT (PATIENT) 29.4 SEC (24.3-30.1); PROTHROMBIN TIME - PATIENT 10.6 SEC (9.8-11.6)
[2016-12-25] MEDS ORDERED: SODIUM CHLORIDE 0.9% FLUSH 10 ML FLUSH IVF PRN (01:15)
[2016-12-25 01:21] LABS: ALKALINE PHOSPHATASE 78 U/L (45-117); CREATINE KINASE 74 U/L (39-308); TOTAL BILIRUBIN ADULT 0.3 MG/DL (0.2-1.0)
[2016-12-25] MEDS: RESP: ALBUTEROL 2.5 MG/IPRATROPIUM 0.5 MG NEB (SCH) INH (01:34)
[2016-12-25] MEDS ORDERED: methylPREDNISolone SOD SUCC 125 MG/2 ML VIAL IV PUSH ONE (02:00)
[2016-12-25] MEDS ORDERED: IOHEXOL 350 MG/ML 10 ML VIAL (for RAD DIAG) IVCONTRAST ONE (02:34)
--- NOTE | 2016-12-25 02:49 | RADRPT ---
EXAM DATE/TIME: 12/25/2016 02:22 [facility] COMPARISON: No previous studies available for comparison. INDICATIONS : Shortness of breath. IV CONTRAST: 75 cc Omnipaque 350 (iohexol) IV RADIATION DOSE: 25.29 CTDIvol (mGy) MEDICAL HISTORY : Hypertension. Asthma. Diabetes. SURGICAL HISTORY : None. ENCOUNTER: Initial ACUITY: 1 day PAIN SCALE: 0/10 LOCATION: chest TECHNIQUE: Volumetric scanning of the chest was performed using a pulmonary embolism protocol MIP images were re constructed. Using automated exposure control and adjustment of the mA and/or kV according to patien t size, radiation dose was kept as low as reasonably achievable to obtain optimal diagnostic quality images. DICOM format image data is available electronically for review and comparison. Follow-up recommendations for detected pulmonary nodules are based at a minimum on nodule size and pa tient risk factors according to Fleischner Society Guidelines. FINDINGS: PULMONARY ARTERIES: No filling defects are seen in the pulmonary arteries through the segmental level. LUNGS: The patient has developed numerous small cavitary micronodular areas in the right upper lobe and righ t lower lobe. They're entirely new since November 2016 PLEURAE: There is no pleural thickening or pleural effusion. MEDIASTINUM: There is good visualization of the great vessels of the middle mediastinum. No evidence of mediastin al or hilar adenopathy/mass. MUSCULOSKELETAL: Within normal limits for patient age. MISCELLANEOUS: The visualized upper abdominal organs demonstrate no acute abnormality. CONCLUSION: Numerous small nodular infiltrates throughout the right upper lobe and the right lower lobe some of w hich appear to be cavitary. The nodules are between 4-6 mm with multiple new cavitary lesions since november exam. Pulmonary consult is recommended. No evidence of pulmonary embolism Mich Menard MD on December 25, 2016 at 2:46 Board Certified Radiologist. This report was verified electronically.
[2016-12-25] MEDS ORDERED: VANCOMYCIN INJ 1 MG in SODIUM CHLOR 0.9% 250 ML INJ 250 ML IV STA (03:06)
[2016-12-25] MEDS ORDERED: CEFEPIME INJ 2,000 MG in SODIUM CHLORIDE 0.9% INJ 100 ML IV STA (03:06)
[2016-12-25] MEDS ORDERED: AZITHROMYCIN INJ 500 MG in SODIUM CHLOR 0.9% 250 ML INJ 250 ML IV STA (03:06)
[2016-12-25] MEDS ORDERED: ONDANSETRON HCL 4 MG/2 ML VIAL IV ONE (03:45)
[2016-12-25] MEDS ORDERED: Vancomycin Consult Pharmacy 1 EA OTHER SCH (04:30)
--- NOTE | 2016-12-25 04:34 | HHI.HP ---
[facility] Service [facility] Primary Care Physician [facility] Admission Diagnosis Cavitary Pneumonia, COPD exacerbation Diagnoses: Travel History International Travel<30 Days: No Contact w/Intl Traveler <30 Da: No Traveled to Known Affected Are: No History of Present Illness 61-year-old male with a past medical history significant for COPD, diabetes mellitus and alcohol abuse presents to the emergency department with acute onset shortness of breath, dizziness and diarrhea. The patient states he was in his usual state of health when he went to bed around midnight and suddenly awoke from sleep gasping for air. He states he has had diarrhea twice during the day prior to going to sleep. He has a nonproductive cough that also began yesterday. Patient was recently discharged on 11/24/16 where he was treated for hyponatremia, lactic acidosis, alcohol abuse and rhabdo. Patient is hyponatremic today with a sodium of 129. Lactic acid 1.8. CTA showed numerous nodular infiltrates throughout the right upper and lower lobe, some of which appear to be cavitary. There are multiple new cavitary lesions since the November exam. Review of Systems Denies fever or chills Denies blurry vision, otorrhea, rhinorrhea Denies sore throat and cough No chest pain, palpitations, positive shortness of breath No abdominal pain Denies constipation/nausea/vomiting. Positive diarrhea Denies muscle pain/weakness No rashes Past Family Social History Past Medical History COPD Diabetes mellitus Neuropathy Past Surgical History Orbital fracture repair Achilles repair Reported Medications Reported Meds & Active Scripts Active Folic Acid 1 Mg Tablet 1 Mg PO DAILY Gnp Vitamin B-1 (Thiamine HCl) 100 Mg Tab 100 Mg PO DAILY Sodium Chloride 1 Gram Tab 1 Gm PO BID Gabapentin 100 Mg Cap 100 Mg PO TID Eq Nicotine (Nicotine) 21 Mg/24 Hour Dis 1 Patch T-DERMAL DAILY Allergies: Coded Allergies: No Known Allergies (Unverified Adverse Reaction, Unknown, 12/24/16) Family History Both parents without diabetes or coronary artery disease Social History Has smoked approximately 20 years, recently cut down to approximately 2 cigarettes per day. Drinks 2-3 beers per day. Denies marijuana and illicit drugs. Physical Exam Vital Signs Vital Signs Date Time Temp Pulse Resp B/P (MAP) Pulse Ox O2 Delivery O2 Flow Rate FiO2 12/25/16 04:10 95 Nasal Cannula 2.00 12/24/16 23:17 97.7 88 28 138/93 (108) 99 Room Air Physical Exam GENERAL: Disheveled male sitting up in bed SKIN: No rashes, ecchymoses or lesions. Cool and dry. HEAD: Atraumatic. Normocephalic. No temporal or scalp tenderness. EYES: Pupils equal round and reactive. Extraocular motions intact. No scleral icterus. No injection or drainage. ENT: Nose without bleeding, purulent drainage or septal hematoma. Throat without erythema, tonsillar hypertrophy or exudate. Uvula midline. Airway patent. NECK: Trachea midline. No JVD or lymphadenopathy. Supple, nontender, no meningeal signs. CARDIOVASCULAR: Regular rate and rhythm without murmurs, gallops, or rubs. RESPIRATORY: Diffuse wheezes throughout. No rales or rhonchi. No crackles. GASTROINTESTINAL: Abdomen soft, non-tender, nondistended. No hepato-splenomegaly , or palpable masses. No guarding. MUSCULOSKELETAL: Extremities without clubbing, cyanosis, or edema. No joint tenderness, effusion, or edema noted. No calf tenderness. NEUROLOGICAL: Awake and alert. Cranial nerves II through XII intact. Motor and sensory grossly within normal limits. Normal speech. Laboratory Laboratory Tests Test 12/25/16 00:47 12/25/16 03:50 White Blood Count 6.0 Red Blood Count 4.28 Hemoglobin 14.6 Hematocrit 41.1 Mean Corpuscular Volume 96.2 Mean Corpuscular Hemoglobin 34.1 Mean Corpuscular Hemoglobin Concent 35.5 Red Cell Distribution Width 13.2 Platelet Count 178 Mean Platelet Volume 7.5 Neutrophils (%) (Auto) 60.6 Lymphocytes (%) (Auto) 25.5 Monocytes (%) (Auto) 10.0 Eosinophils (%) (Auto) 3.3 Basophils (%) (Auto) 0.6 Neutrophils # (Auto) 3.6 Lymphocytes # (Auto) 1.5 Monocytes # (Auto) 0.6 Eosinophils # (Auto) 0.2 Basophils # (Auto) 0.0 CBC Comment DIFF FINAL Differential Comment Prothrombin Time 10.6 Prothromb Time International Ratio 1.0 Activated Partial Thromboplast Time 29.4 D-Dimer Quantitative (PE/DVT) 0.26 Urine Color LIGHT-YELLOW Urine Turbidity CLEAR Urine pH 6.0 Urine Specific [place] 1.003 Urine Protein NEG Urine Glucose (UA) NEG Urine Ketones NEG Urine Occult Blood NEG Urine Nitrite NEG Urine Bilirubin NEG Urine Urobilinogen LESS THAN 2.0 Urine Leukocyte Esterase NEG Urine RBC LESS THAN 1 Urine WBC 1 Microscopic Urinalysis Comment CULT NOT INDICATED Blood Urea Nitrogen 5 Creatinine 0.64 Random Glucose 107 Total Protein 7.9 Albumin 4.0 Calcium Level 8.1 Magnesium Level 1.7 Alkaline Phosphatase 78 Aspartate Amino Transf (AST/SGOT) 34 Alanine Aminotransferase (ALT/SGPT) 47 Total Bilirubin 0.3 Sodium Level 129 Potassium Level 3.7 Chloride Level 95 Carbon Dioxide Level 23.0 Anion Gap 11 Estimat Glomerular Filtration Rate 127 Total Creatine Kinase 74 Troponin I LESS THAN 0.02 B-Type Natriuretic Peptide 24 Lipase 112 Thyroid Stimulating Hormone 3rd Gen 1.710 Lactic Acid Level 1.8 Date/Time Source Procedure Growth Status 12/25/16 04:05 Blood Peripheral Aerobic Blood Culture Pending Received 12/25/16 04:05 Blood Peripheral Anaerobic Blood Culture Pending Received Result Diagram: 12/25/16 0047 12/25/16 0047 Caprini VTE Risk Assessment Caprini VTE Risk Assessment: Mod/High Risk (score >= 2) Caprini Risk Assessment Model Point Value = 1 Point Value = 2 Point Value = 3 Point Value = 5 Age 41-60 Minor surgery BMI > 25 kg/m2 Swollen legs Varicose veins or History of unexplained or recurrent spontaneous Oral contraceptives or hormone replacement Sepsis (< 1 month) Serious lung disease, including pneumonia (< 1 month) Abnormal pulmonary function Acute myocardial infarction Congestive heart failure (< 1 month) History of inflammatory bowel disease Medical patient at bed rest Age 61-74 Arthroscopic surgery Major open surgery (> 45 min) Laparoscopic surgery (> 45 min) Malignancy Confined to bed (> 72 hours) Immobilizing plaster cast Central venous access Age >= 75 History of VTE Family history of VTE Factor V Leiden Prothrombin [id number] Lupus anticoagulant Anticardiolipin antibodies Elevated serum homocysteine Heparin-induced thrombocytopenia Other congenital or acquired thrombophilia Stroke (< 1 month) Elective arthroplasty Hip, pelvis, or leg fracture Acute spinal cord injury (< 1 month) Prophylaxis Regimen Total Risk Factor Score Risk Level Prophylaxis Regimen 0-1 Low Early ambulation 2 Moderate Order ONE of the following: *Sequential Compression Device (SCD) *Heparin 5000 units SQ BID 3-4 Higher Order ONE of the following medications: *Heparin 5000 units SQ TID *Enoxaparin/Lovenox 40 mg SQ daily (WT < 150 kg, CrCl > 30 mL/min) *Enoxaparin/Lovenox 30 mg SQ daily (WT < 150 kg, CrCl > 10-29 mL/min) *Enoxaparin/Lovenox 30 mg SQ BID (WT < 150 kg, CrCl > 30 mL/min) AND/OR *Sequential Compression Device (SCD) 5 or more Highest Order ONE of the following medications: *Heparin 5000 units SQ TID (Preferred with Epidurals) *Enoxaparin/Lovenox 40 mg SQ daily (WT < 150 kg, CrCl > 30 mL/min) *Enoxaparin/Lovenox 30 mg SQ daily (WT < 150 kg, CrCl > 10-29 mL/min) *Enoxaparin/Lovenox 30 mg SQ BID (WT < 150 kg, CrCl > 30 mL/min) AND *Sequential Compression Device (SCD) Assessment and Plan Assessment and Plan 61-year-old male with past medical history significant for COPD and diabetes mellitus recently discharged from the hospital presents with new cavitary lesions on chest CT. 1. Pneumonia/New cavitary lesions on chest CT/shortness of breath Patient recently hospitalized, placed on broad-spectrum antibiotics for possible HCAP Cefepime and vancomycin Pulmonology consulted Infectious disease consulted PPD pending Sputum cultures pending Blood cultures pending Lactic acid 1.8 2. Diarrhea C. difficile toxin pending 3. Hyponatremia Patient with history of hyponatremia Suspect secondary to alcohol abuse Normal saline Monitor BMP 4. Diabetes mellitus A1c pending SSI Patient not currently on any home medications for diabetes 5. COPD DuoNebs Supplemental O2 prn 6. Alcohol abuse Counseled patient as to the importance of secession CIWA protocol FEN Heart healthy diet Electrolytes: As above NS at 125 cc/hr Heparin Physician Certification 2 Midnight Certification Type: Admission for Inpatient Services Order for Inpatient Services The services are ordered in accordance with Medicare regulations or non- Medicare payer requirements, as applicable. In the case of services not specified as inpatient-only, they are appropriately provided as inpatient services in accordance with the 2-midnight benchmark. Estimated LOS (days): 2 2 days is the estimated time the patient will need to remain in the hospital, assuming treatment plan goals are met and no additional complications. Post-Hospital Plan: Not yet determined Ángela Altman MD Dec 25, 2016 04:34
[2016-12-25] MEDS ORDERED: GLUCAGON 1 MG/ML VIAL OTHER PRN (04:45)
[2016-12-25] MEDS ORDERED: MAGNESIUM HYDROXIDE SUSP 30 ML CUP PO PRN (04:45)
[2016-12-25] MEDS ORDERED: LACTULOSE SYRUP 20 GM/30 ML CUP PO PRN (04:45)
[2016-12-25] MEDS ORDERED: SODIUM CHLORIDE 0.9% FLUSH 10 ML FLUSH IV FLUSH PRN (04:45)
[2016-12-25] MEDS ORDERED: SENNOSIDES 8.6 MG TAB PO PRN (04:45)
[2016-12-25] MEDS ORDERED: DEXTROSE 50% IN WATER 50 ML VIAL(D50) IV PUSH PRN (04:45)
[2016-12-25] MEDS ORDERED: NALOXONE HCL 0.4 MG/ML AMP IV PUSH PRN (04:45)
[2016-12-25] MEDS ORDERED: LORazepam 1 MG TAB PO PRN (04:45)
[2016-12-25] MEDS ORDERED: RESP: ALBUTEROL 2.5 MG/IPRATROPIUM 0.5 MG NEB (PRN) NEB (04:45)
[2016-12-25] MEDS ORDERED: LORazepam 2 MG/ML VIAL IV PUSH PRN ×4 (04:45)
[2016-12-25] MEDS ORDERED: ONDANSETRON HCL 4 MG/2 ML VIAL IVP PRN (04:45)
[2016-12-25] MEDS ORDERED: BISACODYL 10 MG SUPP RECTAL PRN (04:45)
[2016-12-25] MEDS ORDERED: LORazepam 2 MG TAB PO PRN (04:45)
[2016-12-25] MEDS ORDERED: FLUMAZENIL 0.5 MG/5 ML VIAL IV PUSH PRN (04:45)
[2016-12-25] MEDS: SODIUM CHLOR 0.9% 1000 ML INJ 1,000 ML IV SCH ×3 (04:48→20:45)
[2016-12-25] MEDS ORDERED: VANCOMYCIN 1,000 MG/NS 250 ML IV SCH ×2 (05:00)
[2016-12-25] MEDS: HEPARIN SODIUM - SQ 10,000 UNITS/ML VIAL SQ SCH ×3 (05:58→21:44)
[2016-12-25] MEDS ORDERED: TUBERCULIN, PPD 5 UNITS/0.1 ML SYRINGE I-DERMAL ONE (06:00)
[2016-12-25] MEDS: ACETAMINOPHEN 325 MG TAB PO PRN ×4 (06:00→21:44)
[2016-12-25] MEDS: GABAPENTIN 100 MG CAP PO SCH ×3 (08:36→17:33)
[2016-12-25] MEDS: SODIUM CHLORIDE 0.9% FLUSH 10 ML FLUSH IV FLUSH SCH ×2 (08:36→19:56)
[2016-12-25] MEDS: DOCUSATE SODIUM 50 MG/SENNA 8.6 MG TAB PO SCH ×2 (08:36→19:56)
[2016-12-25] MEDS: SODIUM CHLORIDE 1 GRAM TAB PO SCH ×2 (08:36→19:56)
[2016-12-25] MEDS: INSULIN ASPART SUPPLEMENTAL SCALE SQ SCH ×4 (08:46→21:44)
[2016-12-25] MEDS ORDERED: VANCOMYCIN 1,000 MG/NS 250 ML IV ONE ×2 (10:15)
[2016-12-25] MEDS: cloNIDine HCL 0.1 MG TAB PO PRN (10:16)
[2016-12-25] MEDS: CEFEPIME INJ 2,000 MG in SODIUM CHLORIDE 0.9% INJ 100 ML IV SCH ×2 (12:00→17:43)
[2016-12-25 13:22] LABS: BLOOD GAS BASE EXCESS -1.3 mmol/L (-2-2); BLOOD GAS CARBOXYHEMOGLOBIN 1.5 % (0-4); BLOOD GAS HCO3 23 mmol/L (22-26); BLOOD GAS METHEMOGLOBIN 0.6 % (0-2); BLOOD GAS O2 HGB SATURATION 94 % (90-100); BLOOD GAS PCO2 36 mmHg (38-42); BLOOD GAS PO2 79 mmHg (61-120); BLOOD GAS TOTAL HGB 14.4 G/DL (12.0-16.0); CRITICAL VALUE NO; DRAW SITE RT RADIAL; FIO2 21 %; NUMBER OF ARTERIAL PUNCTURES 1; TEMP CORR TO 98.6
[2016-12-25 13:23] LABS: STAT NO; ULNAR PULSE PRESENT
[2016-12-25] MEDS ORDERED: VANCOMYCIN INJ 1,000 MG in SODIUM CHLOR 0.9% 250 ML INJ 250 ML IV SCH (15:00)
[2016-12-25] MEDS: ENALAPRILAT 1.25 MG/ML VIAL IV PUSH PRN (15:43)
[2016-12-25 16:06] LABS: HEMOGLOBIN A1a 1.2 %; HEMOGLOBIN A1b 0.7 %; HEMOGLOBIN Ao 85.3 %; HEMOGLOBIN F 1.5 %; HEMOGLOBIN LA1C 1.9 %; HEMOGLOBIN P3 3.5 %
--- NOTE | 2016-12-25 16:14 | PD.CONS ---
History of Present Illness Service Infectious disease Consult Requested By Dr Carolina Altman Reason for Consult Evaluate patient with nodular infiltrates, now showing some cavitary lesions Primary Care Physician [facility] Diagnoses: History of Present Illness Patient seen and examined. Records reviewed. Patient is a 61-year-old male, presented to the hospital with an acute onset of severe shortness of breath. She is not a very good historian. He apparently mentioned that he was also having some dizziness and diarrhea. He has very minimal cough or sputum production. He denies any fever chills or sweats. He has not had any nausea or vomiting or any diarrhea. Patient was recently hospitalized in November admitted for altered mental status. He was found to have significant hyponatremia, and rhabdo, as well as lactic acidosis. He had a CTA during that admission and he had multiple small nodules seen on his CT. The CTA he had done on this admission is still showing the nodular lesions, but some of them appear to have some cavitation. Patient denies any significant congestion. He denies having had any syncopal episode. He is edentulous. No exposure to sick person or tuberculosis. On admission patient is afebrile. His WBC is normal. Chest x-rays normal, and as mentioned CTA showing the same nodular lesions compared to CT from November, but some of them with some cavitation. They have not really increase in size. Infectious disease consultation has been requested to evaluate the patient. Review of Systems Constitutional: DENIES: Fever, Chills Eyes: DENIES: Eye pain Ears, nose, mouth, throat: DENIES: Oral lesions, Throat pain, Ear Pain, Running Nose, Sinus Pain Respiratory: COMPLAINS OF: Cough, Shortness of breath, DENIES: Hemoptysis, Sputum production Cardiovascular: DENIES: Chest pain, Palpitations, Lower Extremity Edema Gastrointestinal: COMPLAINS OF: Diarrhea, DENIES: Abdominal pain, Nausea, Vomiting, Difficulty Swallowing Genitourinary: DENIES: Urgency, Hematuria, Dysuria Musculoskeletal: DENIES: Joint pain, Joint Swelling Integumentary: DENIES: Rash Neurologic: DENIES: Headache, Localized weakness Psychiatric: DENIES: Hallucinations Past Family Social History Allergies: Coded Allergies: No Known Allergies (Unverified Allergy, Unknown, 12/25/16) Past Medical History COPD Diabetes mellitus Neuropathy Past Surgical History COPD Diabetes mellitus Neuropathy Reported Medications I attest that I obtained, updated or reviewed the home and current medications. Reported Meds & Active Scripts Active Folic Acid 1 Mg Tablet 1 Mg PO DAILY Gnp Vitamin B-1 (Thiamine HCl) 100 Mg Tab 100 Mg PO DAILY Sodium Chloride 1 Gram Tab 1 Gm PO BID Gabapentin 100 Mg Cap 100 Mg PO TID Eq Nicotine (Nicotine) 21 Mg/24 Hour Dis 1 Patch T-DERMAL DAILY Active Ordered Medications Current Medications Medications (Trade) Dose Ordered Sig/Gwen Route Start Time Stop Time Status Last Admin Cefepime HCl 2000 mg/Sodium Chloride 100 ml @ 200 mls/hr Q8H IV 12/25/16 11:00 12/25/16 12:00 Pharmacy Profile Note 0 ml @ 0 mls/hr UNSCH OTHER 12/25/16 04:30 (NS Flush) 2 ml UNSCH PRN IV FLUSH 12/25/16 04:45 (NS Flush) 2 ml BID IV FLUSH 12/25/16 09:00 12/25/16 08:36 (Tylenol) 650 mg Q4H PRN PO 12/25/16 04:45 12/25/16 12:14 (Zofran Inj) 4 mg Q6H PRN IVP 12/25/16 04:45 (Heparin Inj) 5,000 units Q8H SQ 12/25/16 06:00 12/25/16 13:16 (Narcan Inj) 0.4 mg UNSCH PRN IV PUSH 12/25/16 04:45 (Martina-Colace) 1 tab BID PO 12/25/16 09:00 12/25/16 08:36 (Milk Of Magnesia Liq) 30 ml Q12H PRN PO 12/25/16 04:45 (Senokot) 17.2 mg Q12H PRN PO 12/25/16 04:45 (Dulcolax Supp) 10 mg DAILY PRN RECTAL 12/25/16 04:45 (Lactulose Liq) 30 ml DAILY PRN PO 12/25/16 04:45 (Romazicon Inj) 0.2 mg Q1M PRN IV PUSH 12/25/16 04:45 (Ativan) 1 mg Q4H PRN PO 12/25/16 04:45 (Ativan Inj) 1 mg Q4H PRN IV PUSH 12/25/16 04:45 (Ativan) 2 mg Q2H PRN PO 12/25/16 04:45 (Ativan Inj) 2 mg Q2H PRN IV PUSH 12/25/16 04:45 (Ativan Inj) 2 mg Q1H PRN IV PUSH 12/25/16 04:45 (Ativan Inj) 2 mg Q15M PRN IV PUSH 12/25/16 04:45 (D50w (Vial) Inj) 50 ml UNSCH PRN IV PUSH 12/25/16 04:45 (Glucagon Inj) 1 mg UNSCH PRN OTHER 12/25/16 04:45 (NovoLOG SUPPLEMENTAL SCALE) 1 ACHS SLIDING SCALE SQ 12/25/16 08:00 12/25/16 12:14 Sodium Chloride 1,000 ml @ 125 mls/hr Q8H IV 12/25/16 04:45 12/25/16 04:48 (Neurontin) 100 mg TID PO 12/25/16 09:00 12/25/16 12:15 (Sodium Chloride) 1 gm BID PO 12/25/16 09:00 12/25/16 08:36 (Duoneb Neb) 1 ampule Q4HR NEB PRN NEB 12/25/16 04:45 (Skin Test Result) 1 Q24H .XX 12/26/16 06:00 12/28/16 06:01 (Catapres) 0.1 mg Q6H PRN PO 12/25/16 09:00 12/25/16 10:16 (Vasotec Inj) 1.25 mg Q6H PRN IV PUSH 12/25/16 09:00 12/25/16 15:43 Vancomycin HCl 2250 mg/Sodium Chloride 522.5 ml @ 250 mls/hr Q12H IV 12/25/16 22:00 Miscellaneous Information SPECIFIC LAB TO BE MABEL... ONCE ONCE .XX 12/27/16 09:45 12/27/16 09:46 Family History Unremarkable Social History Has smoked approximately 20 years, recently cut down to approximately 2 cigarettes per day. Drinks 2-3 beers per day. Denies marijuana and illicit drugs. Rents a room in a house Physical Exam Vital Signs Vital Signs Date Time Temp Pulse Resp B/P (MAP) Pulse Ox O2 Delivery O2 Flow Rate FiO2 12/25/16 15:58 96.6 94 18 180/101 (127) 97 12/25/16 11:41 96.2 89 18 175/97 (123) 95 12/25/16 07:45 96.0 86 18 184/91 (122) 97 12/25/16 06:10 93 Room Air 12/25/16 05:35 96.7 89 19 163/94 (117) 93 12/25/16 05:16 95 Nasal Cannula 2.00 12/25/16 04:10 95 Nasal Cannula 2.00 12/24/16 23:17 97.7 88 28 138/93 (108) 99 Room Air Physical Exam GENERAL: Patient is a well-nourished, well-developed male, unkempt, awake and alert, not in respiratory distress. SKIN: Cool and dry. No generalized rash, no ecchymoses and no evidence of embolic lesions. HEAD: Normocephalic. No temporal wasting, or tenderness. EYES: [place] conjunctiva. No petechia or hemorrhage. Pupils equal, round and reactive to light. Extraocular movements full and intact. No scleral icterus. No injection or drainage. EARS, NOSE AND THROAT: Nose without bleeding or purulent nasal discharge. No sinus tenderness. Edentulous. Mucous membranes pink and moist. No oral lesions noted. NECK: Trachea midline. Supple and not tender, no meningeal signs CARDIOVASCULAR: Regular rate and rhythm. No murmurs, rubs or gallops heard RESPIRATORY: Clear to auscultation. Breath sounds equal bilaterally. No rales , wheezing or rhonchi ABDOMEN: Soft, non-tender, nondistended. Bowel sounds present and normoactive. No guarding. No rebound. No organomegaly. EXTREMITIES: No clubbing, cyanosis, or edema.No joint effusion, has good ROM. No calf tenderness. Well perfused and warm. NEUROLOGICAL: Awake and alert. Cranial nerves grossly intact. Motor grossly within normal limits. PSYCHIATRIC: Normal affect, calm and cooperative. LINE: No evidence of infection Laboratory Laboratory Tests Test 12/25/16 00:47 12/25/16 03:50 12/25/16 13:12 White Blood Count 6.0 Red Blood Count 4.28 Hemoglobin 14.6 Hematocrit 41.1 Mean Corpuscular Volume 96.2 Mean Corpuscular Hemoglobin 34.1 Mean Corpuscular Hemoglobin Concent 35.5 Red Cell Distribution Width 13.2 Platelet Count 178 Mean Platelet Volume 7.5 Neutrophils (%) (Auto) 60.6 Lymphocytes (%) (Auto) 25.5 Monocytes (%) (Auto) 10.0 Eosinophils (%) (Auto) 3.3 Basophils (%) (Auto) 0.6 Neutrophils # (Auto) 3.6 Lymphocytes # (Auto) 1.5 Monocytes # (Auto) 0.6 Eosinophils # (Auto) 0.2 Basophils # (Auto) 0.0 CBC Comment DIFF FINAL Differential Comment Prothrombin Time 10.6 Prothromb Time International Ratio 1.0 Activated Partial Thromboplast Time 29.4 D-Dimer Quantitative (PE/DVT) 0.26 Urine Color LIGHT-YELLOW Urine Turbidity CLEAR Urine pH 6.0 Urine Specific [place] 1.003 Urine Protein NEG Urine Glucose (UA) NEG Urine Ketones NEG Urine Occult Blood NEG Urine Nitrite NEG Urine Bilirubin NEG Urine Urobilinogen LESS THAN 2.0 Urine Leukocyte Esterase NEG Urine RBC LESS THAN 1 Urine WBC 1 Microscopic Urinalysis Comment CULT NOT INDICATED Blood Urea Nitrogen 5 Creatinine 0.64 Random Glucose 107 Total Protein 7.9 Albumin 4.0 Calcium Level 8.1 Magnesium Level 1.7 Alkaline Phosphatase 78 Aspartate Amino Transf (AST/SGOT) 34 Alanine Aminotransferase (ALT/SGPT) 47 Total Bilirubin 0.3 Sodium Level 129 Potassium Level 3.7 Chloride Level 95 Carbon Dioxide Level 23.0 Anion Gap 11 Estimat Glomerular Filtration Rate 127 Total Creatine Kinase 74 Troponin I LESS THAN 0.02 B-Type Natriuretic Peptide 24 Lipase 112 Thyroid Stimulating Hormone 3rd Gen 1.710 Lactic Acid Level 1.8 Blood Gas Puncture Site RT RADIAL Blood Gas Patient Temperature 98.6 Blood Gas HCO3 23 Blood Gas Base Excess -1.3 Blood Gas Oxygen Saturation 94 Arterial Blood pH 7.41 Arterial Blood Partial Pressure CO2 36 Arterial Blood Partial Pressure O2 79 Arterial Blood Oxygen Content 19.0 Arterial Blood Carboxyhemoglobin 1.5 Arterial Blood Methemoglobin 0.6 Blood Gas Hemoglobin 14.4 Blood Gas Inspired Oxygen 21 Date/Time Source Procedure Growth Status 12/25/16 04:05 Blood Peripheral Aerobic Blood Culture Pending Received 12/25/16 04:05 Blood Peripheral Anaerobic Blood Culture Pending Received Result Diagram: 12/25/16 0047 12/25/16 0047 Imaging RADIOLOGY STUDIES/FILMS REVIEWED CT Angiography 12/25/16 0158 Signed Impressions: Service Date/Time: Sunday, December 25, 2016 02:22 - CONCLUSION: Numerous small nodular infiltrates throughout the right upper lobe and the right lower lobe some of which appear to be cavitary. The nodules are between 4-6 mm with multiple new cavitary lesions since the November exam. Pulmonary consult is recommended. No evidence of pulmonary embolism Mich Menard MD Chest X-Ray 12/25/16 0040 Signed Impressions: Service Date/Time: Sunday, December 25, 2016 00:47 - CONCLUSION: Normal examination. Mich Menard MD Assessment and Plan Assessment and Plan IMPRESSION Known pulmonary nodules from first CTA last November, now showing some cavitation in some of lesions, etiology? Acute onset of SOB, looks better, etiology? - no PE on CTA Underlying COPD, previously a heavy smoker RECOMMENDATION Pulmonary evaluating patient Patient not bringing up much phlegm and he will likely need bronch Continue Zosyn and Vancomycin for now [place] and pneumo Ag Follow C/S Monitor progress I will follow along with you Thank you for this consultation Discussed Condition With Explained plan to the patient Laly Rodriguez MD Dec 25, 2016 16:14
--- NOTE | 2016-12-25 19:29 | EKG ---
Date Performed: 12/25/2016 Time Performed: 00:02:54 PTAGE: 61 years EKG: Sinus rhythm NORMAL ECG Since PREVIOUS TRACING , no significant change noted PREVIOUS TRACIN12/25/2016 00.02 DOCTOR: Elmer Verdugo Interpretating Date/Time 12/25/2016 19:26:56
[2016-12-25] MEDS: RESP: ALBUTEROL 2.5 MG/IPRATROPIUM 0.5 MG NEB (SCH) NEB (20:00)
[2016-12-25] MEDS: VANCOMYCIN INJ 2,250 MG in SODIUM CHLORID 0.9% 500 ML INJ 500 ML IV SCH (23:23)
[2016-12-26] VITALS (7 sets, daily range): BP systolic 125–155; BP diastolic 77–95; PULSE 73–90; RESP 16–20; TEMP 96–98.1; O2SAT 94–98
[2016-12-26] MEDS ORDERED: TUBERCULIN, PPD 5 UNITS/0.1 ML SYRINGE I-DERMAL ONE
[2016-12-26] MEDS: CEFEPIME INJ 2,000 MG in SODIUM CHLORIDE 0.9% INJ 100 ML IV SCH ×3 (03:11→19:33)
[2016-12-26] MEDS: SODIUM CHLOR 0.9% 1000 ML INJ 1,000 ML IV SCH ×3 (03:27→19:18)
--- NOTE | 2016-12-26 05:51 | MB ---
cc: AMIRAH BILLY DATE OF CONSULTATION 12/25/2016 REASON FOR CONSULTATION Bilateral nodular lung infiltrates. HISTORY OF PRESENT ILLNESS This is a 61-year-old obese white male with a history of shortness of breath and cough. He was admitted through the emergency room. This patient was also having some loose stools. He was not bringing up much sputum and he denied any fevers, chills or hemoptysis. He was admitted here a month ago with altered mental status and apparently was treated for lactic acidosis and hyponatremia. CTA during that previous admission showed multiple small nodules and he also had a CTA of the chest during this admission which showed nodular lesions bilaterally with some cavitation. The patient has not lost any weight. He denies leg or calf muscle pains and denies chest pains or blackout spells. There is there is a history for diabetes mellitus and history of COPD with a longstanding history of smoking. PAST HISTORY The past history has included - 1. Diabetes mellitus. 2. Hypertension. 3. History of peripheral neuropathy. 4. History for pneumonia in the past and sepsis. ALLERGIES None listed. MED LIST 1. Gabapentin 100 mg t.i.d. 2. Nicotine patch since he recently quit smoking. FAMILY HISTORY Noncontributory. HABITS The patient smoked one-pack per day for over 30 years and now smokes two to three cigarettes a day. Drinks beer daily. No illicit drug use. SYSTEMS REVIEW The patient is overweight. He has snoring and possible sleep apnea. He has nasal and postnasal drip. He has epigastric distress and reflux. No urinary symptoms. No leg or calf muscle pains but has some joint pains to his extremities and denies any skin lesions. PHYSICAL EXAMINATION GENERAL: This is a moderately obese middle-aged man who is alert. Face was flushed. VITAL SIGNS: Blood pressure 170/90, pulse is 100, respirations 24, temperature 97.8. HEENT: Head normocephalic. Pupils are reactive. Tongue is moist. Nasal mucosae edematous. Throat is injected. NECK: No bruits or thyroid enlargement, no lymphadenopathy. CHEST: Decreased excursion, percussion note resonant. Expiratory wheezes are heard in the upper lung duque. Prolonged expirations. CARDIOVASCULAR: Heart sounds are regular. S1-S2. No murmur. ABDOMEN: Soft, protuberant. No mass, no organomegaly. EXTREMITIES: Minimal edema with diminished pulses. Reflexes are 1+ with no gross motor deficits. Cranial nerves are grossly intact. SKIN: No lesions are observed. IMPRESSION 1. Bilateral nodular pulmonary infiltrates with cavitation. Rule out septic emboli versus atypical infections like TB or fungus. 2. COPD with emphysema. 3. Exogenous obesity and possible sleep apnea. 4. Diabetes mellitus and peripheral neuropathy. PLAN 1. The patient is already on antibiotic coverage with Zosyn and vancomycin which we will continue. 2. Sputum will be sent for Gram's stain and culture, AFB and fungal stain and culture and urine antigens to be obtained for Legionella and pneumococcal. 3. The patient will have a follow-up chest x-ray and we will get a bedside pulmonary function study. 4. He was counseled about quitting cigarette smoking. 5. Oxygen will be used as needed to maintain sats over 92. 6. The patient will also need a sleep study. 7. If the sputum test is inconclusive or he is unable to bring up any significant sputum, consideration would be given for bronchoscopy and therapeutic and diagnostic lavage. 8. We will also had DuoNeb solution with the nebulizer q.i.d. I will review and discuss the case with you. Dr. Murrieta, thank you for this consultation. Amirah Billy MD JYANIRA/REAGAN /7:49 PM /5:43 AM
[2016-12-26] MEDS ORDERED: SKIN TEST RESULT SCH (06:00)
[2016-12-26] MEDS: ACETAMINOPHEN 325 MG TAB PO PRN (06:14)
[2016-12-26] MEDS: HEPARIN SODIUM - SQ 10,000 UNITS/ML VIAL SQ SCH ×3 (06:14→19:17)
[2016-12-26 07:42] LABS: AUTOMATED NEUTROPHIL # 8.1 TH/MM3 (1.8-7.7); BASOPHIL % 0.4 % (0.0-2.0); EOSINOPHIL % 0.3 % (0.0-4.0); HEMATOCRIT 42.5 % (39.0-51.0); HEMO FLAGS DIFF FINAL; LYMPHOCYTE # 1.5 TH/MM3 (1.0-4.8); MEAN CELL VOLUME 97.7 FL (80.0-100.0); MEAN CORPUSCULAR HEMOGLOBIN 34.6 PG (27.0-34.0); MEAN CORPUSCULAR HGB CONC 35.4 % (32.0-36.0); MONO % 8.4 % (0.0-8.0); NEUT % 76.9 % (16.0-70.0); PLATELET COUNT 182 TH/MM3 (150-450); RED BLOOD COUNT 4.35 MIL/MM3 (4.50-5.90); RED CELL DISTRIBUTION WIDTH 13.2 % (11.6-17.2); WHITE BLOOD COUNT 10.5 TH/MM3 (4.0-11.0)
[2016-12-26 07:45] LABS: ANION GAP 10 MEQ/L (5-15); AST (GOT) 19 U/L (15-37); BICARBONATE 19.9 MEQ/L (21.0-32.0); BLOOD UREA NITROGEN 10 MG/DL (7-18); CHLORIDE 102 MEQ/L (98-107); GLOMERULAR FILTRATION RATE 129 ML/MIN (>89); POTASSIUM 4.5 MEQ/L (3.5-5.1); SODIUM (NA) 132 MEQ/L (136-145)
[2016-12-26 07:46] LABS: ALT (GPT) 37 U/L (12-78)
[2016-12-26 07:48] LABS: ALKALINE PHOSPHATASE 64 U/L (45-117); TOTAL BILIRUBIN ADULT 0.3 MG/DL (0.2-1.0)
[2016-12-26] MEDS: RESP: ALBUTEROL 2.5 MG/IPRATROPIUM 0.5 MG NEB (SCH) NEB ×4 (08:00→20:04)
[2016-12-26] MEDS: INSULIN ASPART SUPPLEMENTAL SCALE SQ SCH ×4 (08:00→21:02)
[2016-12-26] MEDS: GABAPENTIN 100 MG CAP PO SCH ×3 (08:51→17:38)
[2016-12-26] MEDS: DOCUSATE SODIUM 50 MG/SENNA 8.6 MG TAB PO SCH ×2 (08:51→19:17)
[2016-12-26] MEDS: SODIUM CHLORIDE 1 GRAM TAB PO SCH ×2 (08:51→19:18)
[2016-12-26] MEDS: SODIUM CHLORIDE 0.9% FLUSH 10 ML FLUSH IV FLUSH SCH ×2 (08:51→19:17)
[2016-12-26] MEDS: VANCOMYCIN INJ 2,250 MG in SODIUM CHLORID 0.9% 500 ML INJ 500 ML IV SCH ×2 (09:51→22:20)
--- NOTE | 2016-12-26 10:18 | HHI.PR ---
Subjective Remarks Continued improvement in respiratory status on treatments. Patient is not yet to baseline. He is starting to tolerate ambulation. Objective Vital Signs Date Time Temp Pulse Resp B/P (MAP) Pulse Ox O2 Delivery O2 Flow Rate FiO2 12/26/16 09:36 95 12/26/16 07:37 96.1 73 19 154/93 (113) 97 12/26/16 04:10 96.7 81 20 155/95 (115) 98 12/26/16 00:10 98.1 90 19 148/91 (110) 94 12/25/16 20:05 97.8 85 18 151/97 (115) 97 12/25/16 15:58 96.6 94 18 180/101 (127) 97 12/25/16 11:41 96.2 89 18 175/97 (123) 95 I/O 12/25/16 12/25/16 12/25/16 12/26/16 12/26/16 12/26/16 07:00 15:00 23:00 07:00 15:00 23:00 Intake Total 840 ml 1550 ml 811 ml 1531.5 ml Output Total 1850 ml Balance 840 ml -300 ml 811 ml 1531.5 ml Intake Oral 240 ml 1200 ml 360 ml 360 ml IV Total 600 ml 350 ml 451 ml 1171.5 ml Output Urine Total 1850 ml # Voids 1 1 # Bowel Movements 0 0 0 Result Diagram: 12/26/16 0545 12/26/16544 Objective Remarks GENERAL: NAD, A&Ox3 HEAD: Normocephalic. NECK: Supple, trachea midline. No lymphadenopathy. EYES: No scleral icterus. No injection or drainage. CARDIOVASCULAR: Regular rate and rhythm without murmurs, gallops, or rubs. RESPIRATORY: Breath sounds equal bilaterally. No accessory muscle use. GASTROINTESTINAL: Abdomen soft, non-tender, nondistended. MUSCULOSKELETAL: No cyanosis, or edema. SKIN: Warm and dry. NEURO: No focal neurological deficitis. A/P Problem List: (1) COPD exacerbation ICD Code: J44.1 - Chronic obstructive pulmonary disease with (acute) exacerbation; J98.4 - Other disorders of lung Status: Acute (2) Cavitary pneumonia ICD Code: J18.9 - Pneumonia, unspecified organism; J98.4 - Other disorders of lung Status: Acute Assessment and Plan Assessment and Plan 61-year-old male admitted with cavitary pneumonia and COPD exacerbation Cavitary pneumonia Continue cefepime Continue vancomycin PPD read pending ID following Pulmonology following Follow sputum culture Follow blood cultures COPD exacerbation Continue oxygen supplements as needed Schedule duo nebs When necessary albuterol Azithromycin Systemic steroids Follow for improvement in respiratory status Follow for improvement in exertional tolerance next Diarrhea Resolved No C. difficile toxin obtained yet (no diarrhea) Hyponatremia Continue to monitor Improving thus far May be alcohol related Diabetes mellitus type 2 Follow blood sugars Insulin sliding scale Diabetic diet Alcohol abuse history May be contributory Contributory to hyponatremia Follow for delirium tremens Folic acid Thiamine DVT prophylaxis Heparin James Ford MD Dec 26, 2016 10:18
[2016-12-26] MEDS ORDERED: NICOTINE 7 MG/24 HR PATCH T-DERMAL ONE (10:30)
[2016-12-26] MEDS ORDERED: FOLIC ACID 1 MG TAB PO ONE (10:30)
[2016-12-26] MEDS ORDERED: THIAMINE HCL 100 MG TAB PO ONE (10:30)
[2016-12-26] MEDS ORDERED: DEXT 5%-NACL 0.45% 1000 ML INJ 1,000 ML IV SCH (18:55)
--- NOTE | 2016-12-26 18:55 | HHI.PR ---
Subjective Remarks C/O some cough but does not bring up much sputum..No fever. PFT to be done Objective Vital Signs Date Time Temp Pulse Resp B/P (MAP) Pulse Ox O2 Delivery O2 Flow Rate FiO2 12/26/16 16:44 98 21 12/26/16 15:40 96.6 85 16 125/78 (94) 95 12/26/16 11:51 96.0 78 19 137/77 (97) 97 12/26/16 09:36 95 12/26/16 08:50 Room Air 12/26/16 07:37 96.1 73 19 154/93 (113) 97 12/26/16 04:10 96.7 81 20 155/95 (115) 98 12/26/16 00:10 98.1 90 19 148/91 (110) 94 12/25/16 20:05 97.8 85 18 151/97 (115) 97 I/O 12/25/16 12/25/16 12/25/16 12/26/16 12/26/16 12/26/16 07:00 15:00 23:00 07:00 15:00 23:00 Intake Total 840 ml 1550 ml 811 ml 1531.5 ml 600 ml Output Total 1850 ml Balance 840 ml -300 ml 811 ml 1531.5 ml 600 ml Intake Oral 240 ml 1200 ml 360 ml 360 ml 600 ml IV Total 600 ml 350 ml 451 ml 1171.5 ml Output Urine Total 1850 ml # Voids 1 1 3 # Bowel Movements 0 0 0 Result Diagram: 12/26/16 0545 12/26/1645 Objective Remarks PHYSICAL EXAMINATION GENERAL: This is a moderately obese middle-aged man who is alert. Face was flushed. HEENT: Head normocephalic. Pupils are reactive. Tongue is moist. Nasal mucosae edematous. Throat is injected. NECK: No bruits or thyroid enlargement, no lymphadenopathy. CHEST: Decreased excursion, percussion note resonant. Expiratory wheezes are heard in the upper lung duque. Prolonged expirations. CARDIOVASCULAR: Heart sounds are regular. S1-S2. No murmur. ABDOMEN: Soft, protuberant. No mass, no organomegaly. EXTREMITIES: Minimal edema with diminished pulses. Reflexes are 1+ with no gross motor deficits. Cranial nerves are grossly intact. SKIN: No lesions are observed. Assessment and Plan Assessment and Plan IMPRESSION 1. Bilateral nodular pulmonary infiltrates with cavitation. Rule out septic emboli versus atypical infections like TB or fungus. 2. COPD with emphysema. 3. Exogenous obesity and possible sleep apnea. 4. Diabetes mellitus and peripheral neuropathy. Plan : 1. Cont antibiotics per ID. 2. No sputum yet. 3. Will Add Duonebs tid. 4. Will Need Bronchoscopy , But need Authorization [facility]. 5. Will get PFT in am. 6. Nicotine patch 14 MG /24 HR Lorin Billy MD Dec 26, 2016 18:55
[2016-12-26] MEDS: SKIN TEST RESULT SCH (22:24)
[2016-12-27] VITALS (7 sets, daily range): BP systolic 140–181; BP diastolic 71–93; PULSE 79–90; RESP 18–20; TEMP 95.8–97.4; O2SAT 96–100
[2016-12-27] MEDS: ENALAPRILAT 1.25 MG/ML VIAL IV PUSH PRN (00:22)
[2016-12-27] MEDS: CEFEPIME INJ 2,000 MG in SODIUM CHLORIDE 0.9% INJ 100 ML IV SCH ×3 (04:10→19:00)
[2016-12-27] MEDS: SODIUM CHLOR 0.9% 1000 ML INJ 1,000 ML IV SCH ×4 (04:56→21:32)
[2016-12-27] MEDS: INSULIN ASPART SUPPLEMENTAL SCALE SQ SCH ×4 (08:00→21:00)
[2016-12-27] MEDS: FOLIC ACID 1 MG TAB PO SCH (08:41)
[2016-12-27] MEDS: GABAPENTIN 100 MG CAP PO SCH ×3 (08:41→18:00)
[2016-12-27] MEDS: DOCUSATE SODIUM 50 MG/SENNA 8.6 MG TAB PO SCH ×2 (08:41→21:21)
[2016-12-27] MEDS: SODIUM CHLORIDE 1 GRAM TAB PO SCH ×2 (08:43→21:22)
[2016-12-27] MEDS: THIAMINE HCL 100 MG TAB PO SCH (08:43)
[2016-12-27] MEDS: REMOVE OLD PATCH T-DERMAL SCH (08:45)
[2016-12-27] MEDS: NICOTINE 7 MG/24 HR PATCH T-DERMAL SCH (08:45)
[2016-12-27] MEDS: SODIUM CHLORIDE 0.9% FLUSH 10 ML FLUSH IV FLUSH SCH ×2 (08:45→21:22)
[2016-12-27 08:56] LABS: BASOPHIL % 0.5 % (0.0-2.0); EOSINOPHIL # 0.1 TH/MM3 (0-0.4); EOSINOPHIL % 1.5 % (0.0-4.0); HEMATOCRIT 39.9 % (39.0-51.0); HEMO FLAGS DIFF FINAL; LYMPH % 26.4 % (9.0-44.0); LYMPHOCYTE # 2.2 TH/MM3 (1.0-4.8); MEAN CELL VOLUME 98.1 FL (80.0-100.0); MEAN CORPUSCULAR HEMOGLOBIN 34.1 PG (27.0-34.0); MEAN CORPUSCULAR HGB CONC 34.8 % (32.0-36.0); MONO % 10.1 % (0.0-8.0); NEUT % 61.5 % (16.0-70.0); PLATELET COUNT 182 TH/MM3 (150-450); RED BLOOD COUNT 4.07 MIL/MM3 (4.50-5.90); RED CELL DISTRIBUTION WIDTH 13.6 % (11.6-17.2); WHITE BLOOD COUNT 8.2 TH/MM3 (4.0-11.0)
[2016-12-27 09:03] LABS: ANION GAP 7 MEQ/L (5-15); AST (GOT) 28 U/L (15-37); BICARBONATE 26.1 MEQ/L (21.0-32.0); BLOOD UREA NITROGEN 10 MG/DL (7-18); CHLORIDE 104 MEQ/L (98-107); GLOMERULAR FILTRATION RATE 117 ML/MIN (>89); POTASSIUM 4.2 MEQ/L (3.5-5.1); SODIUM (NA) 137 MEQ/L (136-145)
[2016-12-27 09:04] LABS: ALT (GPT) 42 U/L (12-78)
[2016-12-27 09:07] LABS: ALKALINE PHOSPHATASE 64 U/L (45-117); TOTAL BILIRUBIN ADULT 0.3 MG/DL (0.2-1.0)
[2016-12-27] MEDS: RESP: ALBUTEROL 2.5 MG/IPRATROPIUM 0.5 MG NEB (SCH) NEB ×4 (09:12→19:49)
[2016-12-27] MEDS ORDERED: PHARMACY ORDERED LAB ONE (09:45)
[2016-12-27] MEDS ORDERED: LACTATED RINGER'S 1000 ML IV PRN (10:45)
[2016-12-27] MEDS ORDERED: POVIDONE IODINE 5% (ANTISEPSIS KIT) 4 APPLICATIONS EACH NARE PRN (10:45)
[2016-12-27] MEDS ORDERED: METOPROLOL TARTRATE 25 MG TAB PO PRN (10:45)
[2016-12-27] MEDS ORDERED: CHLORHEXIDINE GLUCONATE 2 % 1 PACK (2 CLOTHS) TOPICAL PRN (10:45)
[2016-12-27] MEDS ORDERED: INSULIN HUMAN REGULAR 1,000 UNITS/10 ML VIAL SQ PRN (10:45)
[2016-12-27] MEDS ORDERED: SODIUM CHLORID 0.9% 500 ML IV PRN (10:45)
[2016-12-27] MEDS: VANCOMYCIN INJ 2,250 MG in SODIUM CHLORID 0.9% 500 ML INJ 500 ML IV SCH (10:45)
[2016-12-27] MEDS ORDERED: SODIUM CHLORIDE 0.9% 20 ML VIAL ONE (10:56)
[2016-12-27] MEDS ORDERED: LIDOCAINE VISCOUS 2% SOLN 15 ML UDC ONE (10:56)
[2016-12-27] MEDS ORDERED: EPINEPHrine HCL (1:1000) 1 MG/ML VIAL ONE (10:57)
[2016-12-27] MEDS ORDERED: LIDOCAINE HCL 2% 50 ML VIAL ONE (10:59)
[2016-12-27] MEDS ORDERED: DO NOT ADM ANY ANTICOAGULANT DRUGS PRN (11:59)
[2016-12-27] MEDS ORDERED: RESP: ALBUTEROL 2.5 MG/3 ML NEB (PRN) NEB (12:00)
[2016-12-27] MEDS ORDERED: SUCCINYLCHOLINE CHLORIDE 100 MG/5 ML SYRINGE IV PUSH ONE (12:00)
[2016-12-27] MEDS ORDERED: PROPOFOL 200 MG/20 ML AMP IV ONE (12:00)
[2016-12-27] MEDS ORDERED: LIDOCAINE HCL 1% PF 5 ML SYRINGE OTHER ONE (12:00)
[2016-12-27] MEDS ORDERED: *morphine SULFATE 8 MG/ML PERIprocedure ONLY ONE (12:13)
--- NOTE | 2016-12-27 12:20 | RADRPT ---
EXAM DATE/TIME: 12/27/2016 11:58 [facility] COMPARISON: CHEST SINGLE AP, December 25, 2016, 0:47. INDICATIONS : Rule out pneumothorax. MEDICAL HISTORY : Gastroesophageal reflux disease. Hypertension. Hepatitis B.Diabetes. SURGICAL HISTORY : None. ENCOUNTER: Initial ACUITY: 1 day PAIN SCORE: 0/10 LOCATION: Bilateral chest FINDINGS: A single view of the chest demonstrates the lungs to be symmetrically aerated without evidence of mas s, infiltrate or effusion. The cardiomediastinal contours are unremarkable. Osseous structures are intact. CONCLUSION: Normal examination. Chai Neville MD on December 27, 2016 at 12:18 Board Certified Radiologist. This report was verified electronically.
--- NOTE | 2016-12-27 13:09 | MP ---
cc: AMIARH BILLY DATE OF SURGERY 12/27/2016 PROCEDURE Fiberoptic bronchoscopy with brushings, biopsies, and washings. PREOPERATIVE DIAGNOSIS Multiple cavitary lung lesions. POSTOPERATIVE DIAGNOSIS Multiple cavitary lung lesions, rule out infection versus malignancy. ANESTHESIA General SURGEON Dr. Lorin Billy PROCEDURE AND FINDINGS The patient was intubated under general anesthesia following which the Olympus IT180 bronchoscope was used to visualize the bronchi. The scope was advanced via the endotracheal tube into the trachea. The trachea and alie appeared normal. The scope was then advanced into the right mainstem and right upper lobe segmental bronchi. The bronchi demonstrated mucoid secretions and mild endobronchitis. Secretions were suctioned out. No endobronchial lesions were seen. Next, the scope was advanced into the right middle lobe segmental bronchi. These bronchi demonstrated a few mucoid secretions, but no endobronchial lesions were seen. Next, the scope was advanced into the right lower lobe segmental bronchi which demonstrated moderate endobronchitis with mucosal ridging and edema. There are mucoid secretions which were suctioned out. Saline washings were done. There are no endobronchial masses seen and there was minimal bleeding observed during biopsy controlled with saline washings. The scope was then advanced into the left mainstem and left upper lobe segmental bronchi. These bronchi demonstrated a few mucoid secretions and mild endobronchitis, but no endobronchial lesions were seen. Saline washings were done. Next, the scope was advanced into the left lower lobe segmental bronchi. These bronchi demonstrated mild endobronchitis with mucoid secretions and mild endobronchitis, but no endobronchial lesions were seen. Saline washings and lavage were done and the procedure was then terminated. The patient tolerated the procedure well. MD CITLALLI Delatorre/RAJIV /11:57 AM /1:05 PM
--- NOTE | 2016-12-27 13:31 | HHI.PR ---
Subjective Remarks PPD is negative. Patient is status post bronchoscopy when seen. He has some sputum production with trace blood. Trace blood status post bronchoscopy is normal and this is explained to the patient. Objective Vital Signs Date Time Temp Pulse Resp B/P (MAP) Pulse Ox O2 Delivery O2 Flow Rate FiO2 12/27/16 12:35 95 20 134/72 (92) 96 Nasal Cannula 2 12/27/16 12:15 102 26 148/86 (106) 95 Nasal Cannula 2 12/27/16 12:00 113 32 154/95 (114) 94 Nasal Cannula 2 12/27/16 11:58 97.2 115 28 134/94 (107) 93 Nasal Cannula 3 12/27/16 08:00 95.8 79 18 140/80 (100) 99 12/27/16 04:10 96.5 89 19 151/89 (109) 96 12/27/16 02:00 166/86 (112) 12/27/16 00:15 97.4 90 20 181/93 (122) 100 12/26/16 16:44 98 21 12/26/16 15:40 96.6 85 16 125/78 (94) 95 I/O 12/26/16 12/26/16 12/26/16 12/27/16 12/27/16 12/27/16 07:00 15:00 23:00 07:00 15:00 23:00 Intake Total 1631.5 ml 600 ml 580 ml 0 ml 100 ml Output Total 700 ml 600 ml Balance 1631.5 ml 600 ml -120 ml -600 ml 100 ml Intake Oral 360 ml 600 ml 480 ml 0 ml IV Total 1271.5 ml 100 ml Other 100 ml Output Urine Total 700 ml 600 ml # Voids 1 3 # Bowel Movements 0 0 1 Result Diagram: 12/27/1646 12/27/1646 Objective Remarks GENERAL: NAD, A&Ox3 HEAD: Normocephalic. NECK: Supple, trachea midline. No lymphadenopathy. EYES: No scleral icterus. No injection or drainage. CARDIOVASCULAR: Regular rate and rhythm without murmurs, gallops, or rubs. RESPIRATORY: Breath sounds equal bilaterally. No accessory muscle use. GASTROINTESTINAL: Abdomen soft, non-tender, nondistended. MUSCULOSKELETAL: No cyanosis, or edema. SKIN: Warm and dry. NEURO: No focal neurological deficitis. A/P Problem List: (1) COPD exacerbation ICD Code: J44.1 - Chronic obstructive pulmonary disease with (acute) exacerbation; J98.4 - Other disorders of lung Status: Acute (2) Cavitary pneumonia ICD Code: J18.9 - Pneumonia, unspecified organism; J98.4 - Other disorders of lung Status: Acute Assessment and Plan Assessment and Plan 61-year-old male admitted with cavitary pneumonia and COPD exacerbation. Continue to monitor cultures. PPD is negative. Cavitary pneumonia Continue cefepime Continue vancomycin PPD negative ID following Pulmonology following Follow sputum culture Follow blood cultures COPD exacerbation Continue oxygen supplements as needed Schedule duo nebs When necessary albuterol Azithromycin Systemic steroids Follow for improvement in respiratory status Follow for improvement in exertional tolerance next Diarrhea Resolved No C. difficile toxin obtained yet (no diarrhea) Hyponatremia Continue to monitor Improving thus far May be alcohol related Diabetes mellitus type 2 Follow blood sugars Insulin sliding scale Diabetic diet Alcohol abuse history May be contributory Contributory to hyponatremia Follow for delirium tremens Folic acid Thiamine DVT prophylaxis Heparin James Ford MD Dec 27, 2016 13:31
[2016-12-27] MEDS: HEPARIN SODIUM - SQ 10,000 UNITS/ML VIAL SQ SCH ×3 (14:00→23:12)
[2016-12-28] VITALS (9 sets, daily range): BP systolic 124–165; BP diastolic 59–100; PULSE 65–94; RESP 16–22; TEMP 96.6–98.1; O2SAT 96–100
[2016-12-28] MEDS: SKIN TEST RESULT SCH
[2016-12-28] MEDS ORDERED: VANCOMYCIN INJ 2,000 MG in SODIUM CHLORID 0.9% 500 ML INJ 500 ML IV SCH (02:00)
[2016-12-28] MEDS: CEFEPIME INJ 2,000 MG in SODIUM CHLORIDE 0.9% INJ 100 ML IV SCH ×3 (03:13→18:10)
[2016-12-28] MEDS: INSULIN ASPART SUPPLEMENTAL SCALE SQ SCH ×4 (08:00→21:00)
[2016-12-28] MEDS: NICOTINE 7 MG/24 HR PATCH T-DERMAL SCH (08:23)
[2016-12-28] MEDS: THIAMINE HCL 100 MG TAB PO SCH (08:23)
[2016-12-28] MEDS: SODIUM CHLORIDE 1 GRAM TAB PO SCH ×2 (08:23→20:58)
[2016-12-28] MEDS: FOLIC ACID 1 MG TAB PO SCH (08:23)
[2016-12-28] MEDS: SODIUM CHLORIDE 0.9% FLUSH 10 ML FLUSH IV FLUSH SCH ×2 (08:23→22:14)
[2016-12-28] MEDS: GABAPENTIN 100 MG CAP PO SCH ×3 (08:23→18:10)
[2016-12-28] MEDS: REMOVE OLD PATCH T-DERMAL SCH (08:23)
[2016-12-28] MEDS: DOCUSATE SODIUM 50 MG/SENNA 8.6 MG TAB PO SCH ×2 (08:23→20:58)
--- NOTE | 2016-12-28 10:12 | HHI.PR ---
Subjective Remarks Patient on room air feels as though breathing and cough are improving reports small amount of blood tinges sputum yesterday- none today Objective Vitals Vital Signs Date Time Temp Pulse Resp B/P (MAP) Pulse Ox O2 Delivery O2 Flow Rate FiO2 12/28/16 08:00 98.1 80 18 165/96 (119) 100 12/28/16 04:00 97.1 68 18 146/70 (95) 12/28/16 00:00 96.9 88 18 139/77 (97) 96 12/27/16 20:00 96.9 83 18 141/85 (103) 98 12/27/16 19:49 97 21 12/27/16 16:45 96.5 81 19 151/71 (97) 98 12/27/16 12:35 95 20 134/72 (92) 96 Nasal Cannula 2 12/27/16 12:15 102 26 148/86 (106) 95 Nasal Cannula 2 12/27/16 12:00 113 32 154/95 (114) 94 Nasal Cannula 2 12/27/16 11:58 97.2 115 28 134/94 (107) 93 Nasal Cannula 3 I/O 12/27/16 12/27/16 12/27/16 12/28/16 12/28/16 12/28/16 07:00 15:00 23:00 07:00 15:00 23:00 Intake Total 0 ml 500 ml 600 ml 620 ml Output Total 600 ml 700 ml 325 ml Balance -600 ml 500 ml -100 ml 295 ml Intake Oral 0 ml 400 ml 600 ml IV Total 620 ml Other 100 ml Output Urine Total 600 ml 700 ml 325 ml # Voids 4 1 # Bowel Movements 1 Result Diagram: 12/27/16 0746 12/28/16 0705 Other Results Laboratory Tests Test 12/25/16 13:12 12/26/16 05:45 12/27/16 07:46 12/27/16 10:00 Blood Gas Puncture Site RT RADIAL Blood Gas Patient Temperature 98.6 Blood Gas HCO3 23 mmol/L Blood Gas Base Excess -1.3 mmol/L Blood Gas Oxygen Saturation 94 % Arterial Blood pH 7.41 Arterial Blood Partial Pressure CO2 36 mmHg Arterial Blood Partial Pressure O2 79 mmHg Arterial Blood Oxygen Content 19.0 Vol % Arterial Blood Carboxyhemoglobin 1.5 % Arterial Blood Methemoglobin 0.6 % Blood Gas Hemoglobin 14.4 G/DL Blood Gas Inspired Oxygen 21 % White Blood Count 10.5 TH/MM3 8.2 TH/MM3 Red Blood Count 4.35 MIL/MM3 4.07 MIL/MM3 Hemoglobin 15.0 GM/DL 13.9 GM/DL Hematocrit 42.5 % 39.9 % Mean Corpuscular Volume 97.7 FL 98.1 FL Mean Corpuscular Hemoglobin 34.6 PG 34.1 PG Mean Corpuscular Hemoglobin Concent 35.4 % 34.8 % Red Cell Distribution Width 13.2 % 13.6 % Platelet Count 182 TH/MM3 182 TH/MM3 Mean Platelet Volume 7.8 FL 7.9 FL Neutrophils (%) (Auto) 76.9 % 61.5 % Lymphocytes (%) (Auto) 14.0 % 26.4 % Monocytes (%) (Auto) 8.4 % 10.1 % Eosinophils (%) (Auto) 0.3 % 1.5 % Basophils (%) (Auto) 0.4 % 0.5 % Neutrophils # (Auto) 8.1 TH/MM3 5.0 TH/MM3 Lymphocytes # (Auto) 1.5 TH/MM3 2.2 TH/MM3 Monocytes # (Auto) 0.9 TH/MM3 0.8 TH/MM3 Eosinophils # (Auto) 0.0 TH/MM3 0.1 TH/MM3 Basophils # (Auto) 0.0 TH/MM3 0.0 TH/MM3 CBC Comment DIFF FINAL DIFF FINAL Differential Comment Blood Urea Nitrogen 10 MG/DL 10 MG/DL Creatinine 0.63 MG/DL 0.69 MG/DL Random Glucose 137 MG/DL 99 MG/DL Total Protein 7.3 GM/DL 7.2 GM/DL Albumin 3.5 GM/DL 3.6 GM/DL Calcium Level 8.8 MG/DL 8.5 MG/DL Alkaline Phosphatase 64 U/L 64 U/L Aspartate Amino Transf (AST/SGOT) 19 U/L 28 U/L Alanine Aminotransferase (ALT/SGPT) 37 U/L 42 U/L Total Bilirubin 0.3 MG/DL 0.3 MG/DL Sodium Level 132 MEQ/L 137 MEQ/L Potassium Level 4.5 MEQ/L 4.2 MEQ/L Chloride Level 102 MEQ/L 104 MEQ/L Carbon Dioxide Level 19.9 MEQ/L 26.1 MEQ/L Anion Gap 10 MEQ/L 7 MEQ/L Estimat Glomerular Filtration Rate 129 ML/MIN 117 ML/MIN Vancomycin Level Trough 23.9 MCG/ML Test 12/28/16 07:05 Creatinine 0.59 MG/DL Estimat Glomerular Filtration Rate 140 ML/MIN Imaging Last Impressions Chest X-Ray 12/27/16 0000 Signed Impressions: Service Date/Time: Tuesday, December 27, 2016 11:58 - CONCLUSION: Normal examination. Chai Neville MD CT Angiography 12/25/16 0158 Signed Impressions: Service Date/Time: Sunday, December 25, 2016 02:22 - CONCLUSION: Numerous small nodular infiltrates throughout the right upper lobe and the right lower lobe some of which appear to be cavitary. The nodules are between 4-6 mm with multiple new cavitary lesions since the November exam. Pulmonary consult is recommended. No evidence of pulmonary embolism Mich Menard MD Objective Remarks GENERAL: NAD, A&Ox3 HEAD: Normocephalic. NECK: Supple, trachea midline. No lymphadenopathy. EYES: No scleral icterus. No injection or drainage. CARDIOVASCULAR: Regular rate and rhythm without murmurs, gallops, or rubs. RESPIRATORY: Breath sounds are clear and equal bilaterally. No accessory muscle use. GASTROINTESTINAL: Abdomen soft, non-tender, nondistended. MUSCULOSKELETAL: No cyanosis, or edema. SKIN: Warm and dry. NEURO: No focal neurological deficits. A/P Problem List: (1) Cavitary pneumonia ICD Code: J18.9 - Pneumonia, unspecified organism; J98.4 - Other disorders of lung Status: Acute (2) COPD exacerbation ICD Code: J44.1 - Chronic obstructive pulmonary disease with (acute) exacerbation; J98.4 - Other disorders of lung Status: Acute Assessment and Plan Assessment and Plan 61-year-old male admitted with cavitary pneumonia and COPD exacerbation. Continue to monitor cultures. PPD is negative. Cavitary pneumonia Continue cefepime Continue vancomycin PPD negative ID following Pulmonology following, s/p bronchoscopy 12/27/16 await cultures from bronchoscopy Follow sputum culture Follow blood cultures COPD exacerbation Continue oxygen supplements as needed- patient currently tolerating room air Schedule duo nebs When necessary albuterol Follow for improvement in exertional tolerance next Diarrhea Resolved No C. difficile toxin obtained yet (no diarrhea) Hyponatremia- improved Continue to monitor May be alcohol related Diabetes mellitus type 2 Follow blood sugars Insulin sliding scale Diabetic diet patient had isolated elevated blood glucose this AM 320, discussed diabetic diet with patient. Patient reports he had some sukumar cracker snacks through the night cover with SSI and continue to monitor Alcohol abuse history May be contributory Contributory to hyponatremia Follow for delirium tremens Folic acid Thiamine DVT prophylaxis Heparin Discussed with patient and Radha Logan Dec 28, 2016 10:12
[2016-12-28] MEDS: RESP: ALBUTEROL 2.5 MG/IPRATROPIUM 0.5 MG NEB (SCH) NEB ×4 (10:42→20:32)
--- NOTE | 2016-12-28 11:02 | HHI.IDPN ---
Subjective Subjective Remarks Patient is a 61-year-old male, presented to the hospital with an acute onset of severe shortness of breath. She is not a very good historian. He apparently mentioned that he was also having some dizziness and diarrhea. He has very minimal cough or sputum production. He denies any fever chills or sweats. He has not had any nausea or vomiting or any diarrhea. Patient was recently hospitalized in November admitted for altered mental status. He was found to have significant hyponatremia, and rhabdo, as well as lactic acidosis. He had a CTA during that admission and he had multiple small nodules seen on his CT. The CTA he had done on this admission is still showing the nodular lesions, but some of them appear to have some cavitation. Patient denies any significant congestion. He denies having had any syncopal episode. He is edentulous. No exposure to sick person or tuberculosis. On admission patient is afebrile. His WBC is normal. Chest x-rays normal, and as mentioned CTA showing the same nodular lesions compared to CT from November, but some of them with some cavitation. They have not really increase in size. Infectious disease consultation has been requested to evaluate the patient. Notes reviewed Temps ok Patient states breathing is a little better Coughing up some blood tinged sputum Had bronch yesterday CXR post bronch normal Antibiotics Vancomycin Cefepime Current Medications Medications (Trade) Dose Ordered Sig/Gwen Route Start Time Stop Time Status Last Admin Cefepime HCl 2000 mg/Sodium Chloride 100 ml @ 200 mls/hr Q8H IV 12/25/16 11:00 12/28/16 03:13 Pharmacy Profile Note 0 ml @ 0 mls/hr UNSCH OTHER 12/25/16 04:30 (NS Flush) 2 ml UNSCH PRN IV FLUSH 12/25/16 04:45 (NS Flush) 2 ml BID IV FLUSH 12/25/16 09:00 12/28/16 08:23 (Tylenol) 650 mg Q4H PRN PO 12/25/16 04:45 12/26/16 06:14 (Zofran Inj) 4 mg Q6H PRN IVP 12/25/16 04:45 (Heparin Inj) 5,000 units Q8H SQ 12/25/16 06:00 12/26/16 14:10 (Narcan Inj) 0.4 mg UNSCH PRN IV PUSH 12/25/16 04:45 (Martina-Colace) 1 tab BID PO 12/25/16 09:00 12/28/16 08:23 (Milk Of Magnesia Liq) 30 ml Q12H PRN PO 12/25/16 04:45 (Senokot) 17.2 mg Q12H PRN PO 12/25/16 04:45 (Dulcolax Supp) 10 mg DAILY PRN RECTAL 12/25/16 04:45 (Lactulose Liq) 30 ml DAILY PRN PO 12/25/16 04:45 (Romazicon Inj) 0.2 mg Q1M PRN IV PUSH 12/25/16 04:45 (Ativan) 1 mg Q4H PRN PO 12/25/16 04:45 (Ativan Inj) 1 mg Q4H PRN IV PUSH 12/25/16 04:45 (Ativan) 2 mg Q2H PRN PO 12/25/16 04:45 (Ativan Inj) 2 mg Q2H PRN IV PUSH 12/25/16 04:45 (Ativan Inj) 2 mg Q1H PRN IV PUSH 12/25/16 04:45 (Ativan Inj) 2 mg Q15M PRN IV PUSH 12/25/16 04:45 (D50w (Vial) Inj) 50 ml UNSCH PRN IV PUSH 12/25/16 04:45 (Glucagon Inj) 1 mg UNSCH PRN OTHER 12/25/16 04:45 (NovoLOG SUPPLEMENTAL SCALE) 1 ACHS SLIDING SCALE SQ 12/25/16 08:00 12/28/16 08:00 Sodium Chloride 1,000 ml @ 125 mls/hr Q8H IV 12/25/16 04:45 12/25/16 04:48 (Neurontin) 100 mg TID PO 12/25/16 09:00 12/28/16 08:23 (Sodium Chloride) 1 gm BID PO 12/25/16 09:00 12/28/16 08:23 (Duoneb Neb) 1 ampule Q4HR NEB PRN NEB 12/25/16 04:45 (Catapres) 0.1 mg Q6H PRN PO 12/25/16 09:00 12/25/16 10:16 (Vasotec Inj) 1.25 mg Q6H PRN IV PUSH 12/25/16 09:00 12/27/16 00:22 (Duoneb Neb) 1 ampule QID NEB NEB 12/25/16 20:00 12/28/16 10:46 (Skin Test Result) 1 Q24H .XX 12/27/16 00:00 12/29/16 00:01 12/28/16 00:00 (Habitrol 7 Mg Patch.24 Hr) 1 patch DAILY T-DERMAL 12/27/16 09:00 12/28/16 08:23 Miscellaneous Information 1 DAILY T-DERMAL 12/27/16 09:00 12/28/16 08:23 (Vitamin B1) 100 mg DAILY PO 12/27/16 09:00 12/28/16 08:23 (Folate) 1 mg DAILY PO 12/27/16 09:00 12/28/16 08:23 Dextrose/Sodium Chloride 1,000 ml @ 0 mls/hr Q0M IV 12/26/16 18:55 Lactated Ringer's 1,000 ml @ 30 mls/hr Q24H PRN IV 12/27/16 10:45 12/30/16 10:44 Sodium Chloride 500 ml @ 30 mls/hr [id number] PRN IV 12/27/16 10:45 12/30/16 10:44 (Lopressor) 25 mg PIZZA COOK PRN PO 12/27/16 10:45 12/30/16 10:44 (Betadine 5% Antisepsis Kit) 1 applic PIZZA COOK PRN EACH NARE 12/27/16 10:45 12/30/16 10:44 (Chlorhexidine 2% Cloth) 3 pack PIZZA COOK PRN TOPICAL 12/27/16 10:45 12/30/16 10:44 (NovoLIN R INJ) See Protocol Table ... PIZZA COOK PRN SQ 12/27/16 10:45 12/30/16 10:44 (Albuterol Neb) 2.5 mg UNSCH X1 PRN NEB 12/27/16 12:00 12/28/16 11:59 Miscellaneous Information SPECIFIC LAB TO BE DRAWN:VANCOMYCIN TROUGH DATE TO... ONCE ONCE .XX 12/30/16 11:45 12/30/16 11:46 Miscellaneous Information ALL NURSING DEPARTME... UNSCH PRN .XX 12/27/16 11:59 12/28/16 11:58 Vancomycin HCl 2250 mg/Sodium Chloride 522.5 ml @ 250 mls/hr Q18H IV 12/29/16 00:00 Lines PIV Past Medical History COPD Diabetes mellitus Neuropathy Past Surgical History COPD Diabetes mellitus Neuropathy Allergies: Coded Allergies: No Known Allergies (Unverified Allergy, Unknown, 12/25/16) Objective . Vital Signs Date Time Temp Pulse Resp B/P (MAP) Pulse Ox O2 Delivery O2 Flow Rate FiO2 12/28/16 08:00 98.1 80 18 165/96 (119) 100 12/28/16 04:00 97.1 68 18 146/70 (95) 12/28/16 00:00 96.9 88 18 139/77 (97) 96 12/27/16 20:00 96.9 83 18 141/85 (103) 98 12/27/16 19:49 97 21 12/27/16 16:45 96.5 81 19 151/71 (97) 98 12/27/16 12:35 95 20 134/72 (92) 96 Nasal Cannula 2 12/27/16 12:15 102 26 148/86 (106) 95 Nasal Cannula 2 12/27/16 12:00 113 32 154/95 (114) 94 Nasal Cannula 2 12/27/16 11:58 97.2 115 28 134/94 (107) 93 Nasal Cannula 3 . Laboratory Tests Test 12/27/16 07:46 White Blood Count 8.2 TH/MM3 Red Blood Count 4.07 MIL/MM3 Hemoglobin 13.9 GM/DL Hematocrit 39.9 % Mean Corpuscular Volume 98.1 FL Mean Corpuscular Hemoglobin 34.1 PG Mean Corpuscular Hemoglobin Concent 34.8 % Red Cell Distribution Width 13.6 % Platelet Count 182 TH/MM3 Mean Platelet Volume 7.9 FL Neutrophils (%) (Auto) 61.5 % Lymphocytes (%) (Auto) 26.4 % Monocytes (%) (Auto) 10.1 % Eosinophils (%) (Auto) 1.5 % Basophils (%) (Auto) 0.5 % Neutrophils # (Auto) 5.0 TH/MM3 Lymphocytes # (Auto) 2.2 TH/MM3 Monocytes # (Auto) 0.8 TH/MM3 Eosinophils # (Auto) 0.1 TH/MM3 Basophils # (Auto) 0.0 TH/MM3 CBC Comment DIFF FINAL Differential Comment Laboratory Tests Test 12/27/16 07:46 12/28/16 07:05 Blood Urea Nitrogen 10 MG/DL Creatinine 0.69 MG/DL 0.59 MG/DL Random Glucose 99 MG/DL Total Protein 7.2 GM/DL Albumin 3.6 GM/DL Calcium Level 8.5 MG/DL Alkaline Phosphatase 64 U/L Aspartate Amino Transf (AST/SGOT) 28 U/L Alanine Aminotransferase (ALT/SGPT) 42 U/L Total Bilirubin 0.3 MG/DL Sodium Level 137 MEQ/L Potassium Level 4.2 MEQ/L Chloride Level 104 MEQ/L Carbon Dioxide Level 26.1 MEQ/L Anion Gap 7 MEQ/L Estimat Glomerular Filtration Rate 117 ML/MIN 140 ML/MIN Microbiology Date/Time Source Procedure Growth Status 12/27/16 12:30 Bronchial Washings Right Lower Lobe Fungal Smear Pending Received 12/27/16 12:30 Bronchial Washings Right Lower Lobe Fungal Culture Pending Received 12/27/16 12:30 Bronchial Washings Right Lower Lobe Acid Fast Stain Pending Received 12/27/16 12:30 Bronchial Washings Right Lower Lobe Mycobacterial Culture Pending Received 12/27/16 12:30 Bronchial Brushings Right Lower Lobe Acid Fast Stain Pending Received 12/27/16 12:30 Bronchial Brushings Right Lower Lobe Mycobacterial Culture Pending Received 12/27/16 12:30 Bronchial Brushings Right Lower Lobe Bronchial Aspirate Culture Pending Received 12/27/16 12:30 Bronchial Washings Right Lower Lobe Gram Stain - Final Resulted 12/27/16 12:30 Bronchial Washings Right Lower Lobe Bronchial Culture Pending Resulted 12/27/16 12:03 Bronchial Brushings Right Lower Lobe Fungal Smear - Final NO FUNGAL ELEMENTS SEEN. Resulted 12/27/16 12:03 Bronchial Brushings Right Lower Lobe Fungal Culture Pending Resulted 12/27/16 08:45 Sputum Expectorated Sputum Fungal Smear - Final NO FUNGAL ELEMENTS SEEN. Resulted 12/27/16 08:45 Sputum Expectorated Sputum Fungal Culture Pending Resulted 12/27/16 08:45 Sputum Expectorated Sputum Acid Fast Stain Pending Received 12/27/16 08:45 Sputum Expectorated Sputum Mycobacterial Culture Pending Received 12/27/16 08:45 Sputum Expectorated Sputum Gram Stain - Final Resulted 12/27/16 08:45 Sputum Expectorated Sputum Sputum Culture Pending Resulted Imaging Chest X-Ray 12/27/16 0000 Signed Impressions: Service Date/Time: Tuesday, December 27, 2016 11:58 - CONCLUSION: Normal examination. Chai Neville MD Physical Exam GENERAL: Patient is barbi obese, well-developed male, awake and alert, not in respiratory distress. SKIN: Cool and dry. No generalized rash, no ecchymoses and no evidence of embolic lesions. HEAD: Normocephalic. No temporal wasting, or tenderness. EYES: [place] conjunctiva. No petechia or hemorrhage. Pupils equal, round and reactive to light. Extraocular movements full and intact. No scleral icterus. No injection or drainage. EARS, NOSE AND THROAT: Nose without bleeding or purulent nasal discharge. No sinus tenderness. Edentulous. Mucous membranes pink and moist. No oral lesions noted. NECK: Trachea midline. Supple and not tender, no meningeal signs CARDIOVASCULAR: Regular rate and rhythm. No murmurs, rubs or gallops heard RESPIRATORY: Clear to auscultation. Breath sounds equal bilaterally. No rales , wheezing or rhonchi. Decreased at the bases ABDOMEN: Soft, non-tender, nondistended. Bowel sounds present and normoactive. No guarding. No rebound. No organomegaly. EXTREMITIES: No clubbing, cyanosis, or edema.No joint effusion, has good ROM. No calf tenderness. Well perfused and warm. NEUROLOGICAL: Awake and alert. Cranial nerves grossly intact. Motor grossly within normal limits. PSYCHIATRIC: Normal affect, calm and cooperative. LINE: No evidence of infection Assessment & Plan Remarks IMPRESSION Known pulmonary nodules from first CTA last November, now showing some cavitation in some of lesions, etiology? Acute onset of SOB, looks better, etiology? - no PE on CTA Underlying COPD, previously a heavy smoker RECOMMENDATION Follow bronch results Continue vanco and Cefepime Monitor progress Will make further recs once C/S available Explained plan to patient Laly Rodriguez MD Dec 28, 2016 11:02
[2016-12-28] MEDS: SODIUM CHLOR 0.9% 1000 ML INJ 1,000 ML IV SCH ×2 (11:51→20:45)
[2016-12-28] MEDS: cloNIDine HCL 0.1 MG TAB PO PRN (11:53)
[2016-12-28] MEDS: HEPARIN SODIUM - SQ 10,000 UNITS/ML VIAL SQ SCH ×2 (14:16→22:13)
--- NOTE | 2016-12-28 18:28 | HHI.PR ---
Subjective Remarks C/O some hemoptysis after Bronchoscopy. No fever. C/O Chest pains. PFT to be done Objective Vital Signs Date Time Temp Pulse Resp B/P (MAP) Pulse Ox O2 Delivery O2 Flow Rate FiO2 12/28/16 15:26 96.6 80 16 144/84 (104) 99 12/28/16 12:00 96.8 94 18 158/100 (119) 100 12/28/16 10:42 98 21 12/28/16 08:00 98.1 80 18 165/96 (119) 100 12/28/16 04:00 97.1 68 18 146/70 (95) 12/28/16 00:00 96.9 88 18 139/77 (97) 96 12/27/16 20:00 96.9 83 18 141/85 (103) 98 12/27/16 19:49 97 21 I/O 12/27/16 12/27/16 12/27/16 12/28/16 12/28/16 12/28/16 07:00 15:00 23:00 07:00 15:00 23:00 Intake Total 0 ml 500 ml 600 ml 620 ml 420 ml Output Total 600 ml 700 ml 325 ml Balance -600 ml 500 ml -100 ml 295 ml 420 ml Intake Oral 0 ml 400 ml 600 ml 420 ml IV Total 620 ml Other 100 ml Output Urine Total 600 ml 700 ml 325 ml # Voids 4 1 4 # Bowel Movements 1 1 Result Diagram: 12/27/16 0746 12/28/16 0705 Objective Remarks PHYSICAL EXAMINATION GENERAL: This is a moderately obese middle-aged man who is alert. HEENT: Head normocephalic. Pupils are reactive. Tongue is moist. Nasal mucosae edematous. Throat is clear NECK: No bruits or thyroid enlargement, no lymphadenopathy. CHEST: Decreased excursion, percussion note resonant. Expiratory wheezes are heard in the upper lung [place]. CARDIOVASCULAR: Heart sounds are regular. S1-S2. No murmur. ABDOMEN: Soft, protuberant. No mass, no organomegaly. EXTREMITIES: Minimal edema with diminished pulses. Reflexes are 1+ with no gross motor deficits. Cranial nerves are grossly intact. SKIN: No lesions are observed. Assessment and Plan Assessment and Plan IMPRESSION 1. Bilateral nodular pulmonary infiltrates with cavitation. Rule out septic emboli versus atypical infections like TB or fungus. 2. COPD with emphysema. 3. Exogenous obesity and possible sleep apnea. 4. Diabetes mellitus and peripheral neuropathy. Plan : 1. Cont antibiotics per ID. 2. IS qid. 3. Will Add Duonebs tid. 4. Add Symbicort 160/4.5 mcg , 2 puffs bid 5. Will get PFT . 6. Nicotine patch 14 MG /24 HR Lorin Billy MD Dec 28, 2016 18:28
[2016-12-28] MEDS: BUDESONIDE-FORMOTEROL 160/4.5 MCG INHALER INH SCH (22:13)
[2016-12-29] VITALS (8 sets, daily range): BP systolic 134–179; BP diastolic 79–108; PULSE 77–96; RESP 16–20; TEMP 96.1–98.4; O2SAT 95–100
[2016-12-29] MEDS: SKIN TEST RESULT SCH
[2016-12-29] MEDS: CEFEPIME INJ 2,000 MG in SODIUM CHLORIDE 0.9% INJ 100 ML IV SCH ×3 (03:00→19:12)
[2016-12-29] MEDS: HEPARIN SODIUM - SQ 10,000 UNITS/ML VIAL SQ SCH ×3 (05:20→21:50)
[2016-12-29] MEDS: SODIUM CHLOR 0.9% 1000 ML INJ 1,000 ML IV SCH (05:21)
[2016-12-29 07:02] LABS: ANION GAP 6 MEQ/L (5-15); AST (GOT) 29 U/L (15-37); BICARBONATE 26.8 MEQ/L (21.0-32.0); BLOOD UREA NITROGEN 9 MG/DL (7-18); CHLORIDE 102 MEQ/L (98-107); GLOMERULAR FILTRATION RATE 127 ML/MIN (>89); POTASSIUM 3.8 MEQ/L (3.5-5.1); SODIUM (NA) 135 MEQ/L (136-145)
[2016-12-29 07:05] LABS: ALKALINE PHOSPHATASE 67 U/L (45-117); ALT (GPT) 51 U/L (12-78); TOTAL BILIRUBIN ADULT 0.4 MG/DL (0.2-1.0)
[2016-12-29 07:39] LABS: AUTOMATED NEUTROPHIL # 4.6 TH/MM3 (1.8-7.7); BASOPHIL % 0.4 % (0.0-2.0); EOSINOPHIL # 0.2 TH/MM3 (0-0.4); EOSINOPHIL % 2.9 % (0.0-4.0); HEMO FLAGS DIFF FINAL; LYMPHOCYTE # 1.9 TH/MM3 (1.0-4.8); MEAN CELL VOLUME 98.7 FL (80.0-100.0); MEAN CORPUSCULAR HEMOGLOBIN 33.7 PG (27.0-34.0); MEAN CORPUSCULAR HGB CONC 34.1 % (32.0-36.0); MONO % 9.7 % (0.0-8.0); PLATELET COUNT 178 TH/MM3 (150-450); RED BLOOD COUNT 4.05 MIL/MM3 (4.50-5.90); RED CELL DISTRIBUTION WIDTH 13.4 % (11.6-17.2); WHITE BLOOD COUNT 7.5 TH/MM3 (4.0-11.0)
[2016-12-29] MEDS: GABAPENTIN 100 MG CAP PO SCH ×3 (08:18→17:17)
[2016-12-29] MEDS: FOLIC ACID 1 MG TAB PO SCH (08:18)
[2016-12-29] MEDS: DOCUSATE SODIUM 50 MG/SENNA 8.6 MG TAB PO SCH ×2 (08:19→21:49)
[2016-12-29] MEDS: THIAMINE HCL 100 MG TAB PO SCH (08:19)
[2016-12-29] MEDS: BUDESONIDE-FORMOTEROL 160/4.5 MCG INHALER INH SCH ×2 (08:19→21:49)
[2016-12-29] MEDS: SODIUM CHLORIDE 1 GRAM TAB PO SCH ×2 (08:19→21:49)
[2016-12-29] MEDS: REMOVE OLD PATCH T-DERMAL SCH (08:20)
[2016-12-29] MEDS: NICOTINE 7 MG/24 HR PATCH T-DERMAL SCH (08:20)
[2016-12-29] MEDS: SODIUM CHLORIDE 0.9% FLUSH 10 ML FLUSH IV FLUSH SCH ×2 (08:20→21:00)
[2016-12-29] MEDS: INSULIN ASPART SUPPLEMENTAL SCALE SQ SCH ×4 (08:33→21:00)
[2016-12-29] MEDS: RESP: ALBUTEROL 2.5 MG/IPRATROPIUM 0.5 MG NEB (SCH) NEB ×3 (09:56→16:55)
--- NOTE | 2016-12-29 11:54 | HHI.PR ---
Subjective Remarks Patient up ambulating to the bathroom offers no specific complaints Objective Vitals Vital Signs Date Time Temp Pulse Resp B/P (MAP) Pulse Ox O2 Delivery O2 Flow Rate FiO2 12/29/16 10:01 99 12/29/16 08:00 96.1 86 18 151/102 (118) 97 12/29/16 04:00 98.0 81 16 134/79 (97) 95 12/29/16 00:00 98.4 77 19 154/80 (104) 100 12/28/16 20:32 96 12/28/16 18:56 97.8 91 22 164/87 (112) 100 12/28/16 15:26 96.6 80 16 144/84 (104) 99 12/28/16 12:00 96.8 94 18 158/100 (119) 100 I/O 12/28/16 12/28/16 12/28/16 12/29/16 12/29/16 12/29/16 07:00 15:00 23:00 07:00 15:00 23:00 Intake Total 620 ml 420 ml 1200 ml 1000 ml Output Total 325 ml 1000 ml 1600 ml Balance 295 ml 420 ml 200 ml -600 ml Intake Oral 420 ml 1200 ml 1000 ml IV Total 620 ml Output Urine Total 325 ml 1000 ml 1600 ml # Voids 4 # Bowel Movements 1 Result Diagram: 12/29/1645 12/29/1645 Other Results Laboratory Tests Test 12/27/16 07:46 12/27/16 10:00 12/28/16 07:05 12/29/16 05:45 White Blood Count 8.2 TH/MM3 7.5 TH/MM3 Red Blood Count 4.07 MIL/MM3 4.05 MIL/MM3 Hemoglobin 13.9 GM/DL 13.6 GM/DL Hematocrit 39.9 % 40.0 % Mean Corpuscular Volume 98.1 FL 98.7 FL Mean Corpuscular Hemoglobin 34.1 PG 33.7 PG Mean Corpuscular Hemoglobin Concent 34.8 % 34.1 % Red Cell Distribution Width 13.6 % 13.4 % Platelet Count 182 TH/MM3 178 TH/MM3 Mean Platelet Volume 7.9 FL 7.2 FL Neutrophils (%) (Auto) 61.5 % 62.0 % Lymphocytes (%) (Auto) 26.4 % 25.0 % Monocytes (%) (Auto) 10.1 % 9.7 % Eosinophils (%) (Auto) 1.5 % 2.9 % Basophils (%) (Auto) 0.5 % 0.4 % Neutrophils # (Auto) 5.0 TH/MM3 4.6 TH/MM3 Lymphocytes # (Auto) 2.2 TH/MM3 1.9 TH/MM3 Monocytes # (Auto) 0.8 TH/MM3 0.7 TH/MM3 Eosinophils # (Auto) 0.1 TH/MM3 0.2 TH/MM3 Basophils # (Auto) 0.0 TH/MM3 0.0 TH/MM3 CBC Comment DIFF FINAL DIFF FINAL Differential Comment Blood Urea Nitrogen 10 MG/DL 9 MG/DL Creatinine 0.69 MG/DL 0.59 MG/DL 0.64 MG/DL Random Glucose 99 MG/DL 138 MG/DL Total Protein 7.2 GM/DL 6.7 GM/DL Albumin 3.6 GM/DL 3.3 GM/DL Calcium Level 8.5 MG/DL 8.7 MG/DL Alkaline Phosphatase 64 U/L 67 U/L Aspartate Amino Transf (AST/SGOT) 28 U/L 29 U/L Alanine Aminotransferase (ALT/SGPT) 42 U/L 51 U/L Total Bilirubin 0.3 MG/DL 0.4 MG/DL Sodium Level 137 MEQ/L 135 MEQ/L Potassium Level 4.2 MEQ/L 3.8 MEQ/L Chloride Level 104 MEQ/L 102 MEQ/L Carbon Dioxide Level 26.1 MEQ/L 26.8 MEQ/L Anion Gap 7 MEQ/L 6 MEQ/L Estimat Glomerular Filtration Rate 117 ML/MIN 140 ML/MIN 127 ML/MIN Vancomycin Level Trough 23.9 MCG/ML Imaging Last Impressions Chest X-Ray 12/27/16 0000 Signed Impressions: Service Date/Time: Tuesday, December 27, 2016 11:58 - CONCLUSION: Normal examination. Chai Neville MD CT Angiography 12/25/16 0158 Signed Impressions: Service Date/Time: Sunday, December 25, 2016 02:22 - CONCLUSION: Numerous small nodular infiltrates throughout the right upper lobe and the right lower lobe some of which appear to be cavitary. The nodules are between 4-6 mm with multiple new cavitary lesions since the November exam. Pulmonary consult is recommended. No evidence of pulmonary embolism Mich Menard MD Objective Remarks GENERAL: NAD, A&Ox3 HEAD: Normocephalic. NECK: Supple, trachea midline. No lymphadenopathy. EYES: No scleral icterus. No injection or drainage. CARDIOVASCULAR: irregularly irregular RESPIRATORY: Breath sounds are clear and equal bilaterally. No accessory muscle use. GASTROINTESTINAL: Abdomen soft, non-tender, nondistended. MUSCULOSKELETAL: No cyanosis, or edema. SKIN: Warm and dry. NEURO: No focal neurological deficits. A/P Problem List: (1) Cavitary pneumonia ICD Code: J18.9 - Pneumonia, unspecified organism; J98.4 - Other disorders of lung Status: Acute (2) COPD exacerbation ICD Code: J44.1 - Chronic obstructive pulmonary disease with (acute) exacerbation; J98.4 - Other disorders of lung Status: Acute Assessment and Plan Assessment and Plan 61-year-old male admitted with cavitary pneumonia and COPD exacerbation. Continue to monitor cultures. PPD is negative. Cavitary pneumonia Continue cefepime Continue vancomycin PPD negative ID following Pulmonology following, s/p bronchoscopy 12/27/16 await cultures from bronchoscopy Follow sputum culture Follow blood cultures COPD exacerbation- resolved Continue oxygen supplements as needed- patient currently tolerating room air Schedule duo nebs When necessary albuterol Follow for improvement in exertional tolerance next Diarrhea- Resolved No C. difficile toxin obtained yet (no diarrhea) Hyponatremia- improved Continue to monitor May be alcohol related Diabetes mellitus type 2 Follow blood sugars Insulin sliding scale Diabetic diet patient had isolated elevated blood glucose this AM 320, discussed diabetic diet with patient. Patient reports he had some sukumar cracker snacks through the night cover with SSI and continue to monitor Alcohol abuse history May be contributory Contributory to hyponatremia Follow for delirium tremens Folic acid Thiamine DVT prophylaxis Heparin Discussed with patient and Radha Logan Dec 29, 2016 11:54
--- NOTE | 2016-12-29 13:58 | HHI.IDPN ---
Subjective Subjective Remarks Patient is a 61-year-old male, presented to the hospital with an acute onset of severe shortness of breath. She is not a very good historian. He apparently mentioned that he was also having some dizziness and diarrhea. He has very minimal cough or sputum production. He denies any fever chills or sweats. He has not had any nausea or vomiting or any diarrhea. Patient was recently hospitalized in November admitted for altered mental status. He was found to have significant hyponatremia, and rhabdo, as well as lactic acidosis. He had a CTA during that admission and he had multiple small nodules seen on his CT. The CTA he had done on this admission is still showing the nodular lesions, but some of them appear to have some cavitation. Patient denies any significant congestion. He denies having had any syncopal episode. He is edentulous. No exposure to sick person or tuberculosis. On admission patient is afebrile. His WBC is normal. Chest x-rays normal, and as mentioned CTA showing the same nodular lesions compared to CT from November, but some of them with some cavitation. They have not really increase in size. Infectious disease consultation has been requested to evaluate the patient. Notes reviewed Temps ok No new complaints Bronch cytology and biopsy no malignancy Bronch C/S normal resp garcía CXR post bronch normal One BC with Coag Neg Staph C/W contaminant Antibiotics Vancomycin Cefepime Current Medications Medications (Trade) Dose Ordered Sig/Gwen Route Start Time Stop Time Status Last Admin Cefepime HCl 2000 mg/Sodium Chloride 100 ml @ 200 mls/hr Q8H IV 12/25/16 11:00 12/29/16 12:10 Pharmacy Profile Note 0 ml @ 0 mls/hr UNSCH OTHER 12/25/16 04:30 (NS Flush) 2 ml UNSCH PRN IV FLUSH 12/25/16 04:45 (NS Flush) 2 ml BID IV FLUSH 12/25/16 09:00 12/29/16 08:20 (Tylenol) 650 mg Q4H PRN PO 12/25/16 04:45 12/26/16 06:14 (Zofran Inj) 4 mg Q6H PRN IVP 12/25/16 04:45 (Heparin Inj) 5,000 units Q8H SQ 12/25/16 06:00 12/29/16 05:20 (Narcan Inj) 0.4 mg UNSCH PRN IV PUSH 12/25/16 04:45 (Martina-Colace) 1 tab BID PO 12/25/16 09:00 12/29/16 08:19 (Milk Of Magnesia Liq) 30 ml Q12H PRN PO 12/25/16 04:45 (Senokot) 17.2 mg Q12H PRN PO 12/25/16 04:45 (Dulcolax Supp) 10 mg DAILY PRN RECTAL 12/25/16 04:45 (Lactulose Liq) 30 ml DAILY PRN PO 12/25/16 04:45 (Romazicon Inj) 0.2 mg Q1M PRN IV PUSH 12/25/16 04:45 (Ativan) 1 mg Q4H PRN PO 12/25/16 04:45 (Ativan Inj) 1 mg Q4H PRN IV PUSH 12/25/16 04:45 (Ativan) 2 mg Q2H PRN PO 12/25/16 04:45 (Ativan Inj) 2 mg Q2H PRN IV PUSH 12/25/16 04:45 (Ativan Inj) 2 mg Q1H PRN IV PUSH 12/25/16 04:45 (Ativan Inj) 2 mg Q15M PRN IV PUSH 12/25/16 04:45 (D50w (Vial) Inj) 50 ml UNSCH PRN IV PUSH 12/25/16 04:45 (Glucagon Inj) 1 mg UNSCH PRN OTHER 12/25/16 04:45 (NovoLOG SUPPLEMENTAL SCALE) 1 ACHS SLIDING SCALE SQ 12/25/16 08:00 12/29/16 12:06 (Neurontin) 100 mg TID PO 12/25/16 09:00 12/29/16 12:06 (Sodium Chloride) 1 gm BID PO 12/25/16 09:00 12/29/16 08:19 (Duoneb Neb) 1 ampule Q4HR NEB PRN NEB 12/25/16 04:45 (Catapres) 0.1 mg Q6H PRN PO 12/25/16 09:00 12/28/16 11:53 (Vasotec Inj) 1.25 mg Q6H PRN IV PUSH 12/25/16 09:00 12/27/16 00:22 (Duoneb Neb) 1 ampule QID NEB NEB 12/25/16 20:00 12/29/16 12:47 (Habitrol 7 Mg Patch.24 Hr) 1 patch DAILY T-DERMAL 12/27/16 09:00 12/29/16 08:20 Miscellaneous Information 1 DAILY T-DERMAL 12/27/16 09:00 12/29/16 08:20 (Vitamin B1) 100 mg DAILY PO 12/27/16 09:00 12/29/16 08:19 (Folate) 1 mg DAILY PO 12/27/16 09:00 12/29/16 08:18 Dextrose/Sodium Chloride 1,000 ml @ 0 mls/hr Q0M IV 12/26/16 18:55 Lactated Ringer's 1,000 ml @ 30 mls/hr Q24H PRN IV 12/27/16 10:45 12/30/16 10:44 Sodium Chloride 500 ml @ 30 mls/hr [id number] PRN IV 12/27/16 10:45 12/30/16 10:44 (Lopressor) 25 mg SUBASSEMBLY SUPERVISOR PRN PO 12/27/16 10:45 12/30/16 10:44 (Betadine 5% Antisepsis Kit) 1 applic SUBASSEMBL[employer] SUPERVISOR PRN EACH NARE 12/27/16 10:45 12/30/16 10:44 (Chlorhexidine 2% Cloth) 3 pack SUBASSEM[employer] SUPERVISOR PRN TOPICAL 12/27/16 10:45 12/30/16 10:44 (NovoLIN R INJ) See Protocol Table ... SUBASSEMBLY SUPERVISOR PRN SQ 12/27/16 10:45 12/30/16 10:44 Miscellaneous Information SPECIFIC LAB TO BE DRAWN:VANCOMYCIN TROUGH DATE TO... ONCE ONCE .XX 12/30/16 11:45 12/30/16 11:46 Vancomycin HCl 2250 mg/Sodium Chloride 522.5 ml @ 250 mls/hr Q18H IV 12/29/16 00:00 12/29/16 00:00 (Symbicort 160-4.5 Inh) 2 puff Q12HR INH 12/28/16 21:00 12/29/16 08:19 Lines PIV Past Medical History COPD Diabetes mellitus Neuropathy Past Surgical History COPD Diabetes mellitus Neuropathy Allergies: Coded Allergies: No Known Allergies (Unverified Allergy, Unknown, 12/25/16) Objective . Vital Signs Date Time Temp Pulse Resp B/P (MAP) Pulse Ox O2 Delivery O2 Flow Rate FiO2 12/29/16 12:00 97.5 96 18 171/91 (117) 100 12/29/16 10:01 99 12/29/16 08:00 96.1 86 18 151/102 (118) 97 12/29/16 04:00 98.0 81 16 134/79 (97) 95 12/29/16 00:00 98.4 77 19 154/80 (104) 100 12/28/16 20:32 96 12/28/16 18:56 97.8 91 22 164/87 (112) 100 12/28/16 15:26 96.6 80 16 144/84 (104) 99 . Laboratory Tests Test 12/29/16 05:45 White Blood Count 7.5 TH/MM3 Red Blood Count 4.05 MIL/MM3 Hemoglobin 13.6 GM/DL Hematocrit 40.0 % Mean Corpuscular Volume 98.7 FL Mean Corpuscular Hemoglobin 33.7 PG Mean Corpuscular Hemoglobin Concent 34.1 % Red Cell Distribution Width 13.4 % Platelet Count 178 TH/MM3 Mean Platelet Volume 7.2 FL Neutrophils (%) (Auto) 62.0 % Lymphocytes (%) (Auto) 25.0 % Monocytes (%) (Auto) 9.7 % Eosinophils (%) (Auto) 2.9 % Basophils (%) (Auto) 0.4 % Neutrophils # (Auto) 4.6 TH/MM3 Lymphocytes # (Auto) 1.9 TH/MM3 Monocytes # (Auto) 0.7 TH/MM3 Eosinophils # (Auto) 0.2 TH/MM3 Basophils # (Auto) 0.0 TH/MM3 CBC Comment DIFF FINAL Differential Comment Laboratory Tests Test 12/28/16 07:05 12/29/16 05:45 Creatinine 0.59 MG/DL 0.64 MG/DL Estimat Glomerular Filtration Rate 140 ML/MIN 127 ML/MIN Blood Urea Nitrogen 9 MG/DL Random Glucose 138 MG/DL Total Protein 6.7 GM/DL Albumin 3.3 GM/DL Calcium Level 8.7 MG/DL Alkaline Phosphatase 67 U/L Aspartate Amino Transf (AST/SGOT) 29 U/L Alanine Aminotransferase (ALT/SGPT) 51 U/L Total Bilirubin 0.4 MG/DL Sodium Level 135 MEQ/L Potassium Level 3.8 MEQ/L Chloride Level 102 MEQ/L Carbon Dioxide Level 26.8 MEQ/L Anion Gap 6 MEQ/L Microbiology Date/Time Source Procedure Growth Status 12/27/16 12:30 Bronchial Washings Right Lower Lobe Fungal Smear - Final NO FUNGAL ELEMENTS SEEN. Resulted 12/27/16 12:30 Bronchial Washings Right Lower Lobe Fungal Culture Pending Resulted 12/27/16 12:30 Bronchial Washings Right Lower Lobe Acid Fast Stain Pending Received 12/27/16 12:30 Bronchial Washings Right Lower Lobe Mycobacterial Culture Pending Received 12/27/16 12:30 Bronchial Brushings Right Lower Lobe Acid Fast Stain Pending Received 12/27/16 12:30 Bronchial Brushings Right Lower Lobe Mycobacterial Culture Pending Received 12/27/16 12:30 Bronchial Brushings Right Lower Lobe Bronchial Aspirate Culture - Final NO GROWTH IN 48 HOURS. Complete 12/27/16 12:30 Bronchial Washings Right Lower Lobe Gram Stain - Final Complete 12/27/16 12:30 Bronchial Washings Right Lower Lobe Bronchial Culture - Final HEAVY GROWTH NORMAL RESPIRATORY GARCÍA Complete 12/27/16 12:03 Bronchial Brushings Right Lower Lobe Fungal Smear - Final NO FUNGAL ELEMENTS SEEN. Resulted 12/27/16 12:03 Bronchial Brushings Right Lower Lobe Fungal Culture Pending Resulted 12/27/16 08:45 Sputum Expectorated Sputum Fungal Smear - Final NO FUNGAL ELEMENTS SEEN. Resulted 12/27/16 08:45 Sputum Expectorated Sputum Fungal Culture Pending Resulted 12/27/16 08:45 Sputum Expectorated Sputum Acid Fast Stain - Final NO ACID FAST BACILLI SEEN Resulted 12/27/16 08:45 Sputum Expectorated Sputum Mycobacterial Culture Pending Resulted 12/27/16 08:45 Sputum Expectorated Sputum Gram Stain - Final Complete 12/27/16 08:45 Sputum Expectorated Sputum Sputum Culture - Final HEAVY GROWTH NORMAL RESPIRATORY GARCÍA Complete Imaging Chest X-Ray 12/27/16 0000 Signed Impressions: Service Date/Time: Tuesday, December 27, 2016 11:58 - CONCLUSION: Normal examination. Chai Neville MD Physical Exam GENERAL: awake and alert, not in respiratory distress. SKIN: Cool and dry. No generalized rash, no ecchymoses and no evidence of embolic lesions. HEAD: Normocephalic. No temporal wasting, or tenderness. EYES: [place] conjunctiva. No petechia or hemorrhage. Pupils equal, round and reactive to light. Extraocular movements full and intact. No scleral icterus. No injection or drainage. EARS, NOSE AND THROAT: Nose without bleeding or purulent nasal discharge. No sinus tenderness. Edentulous. Mucous membranes pink and moist. No oral lesions noted. NECK: Trachea midline. Supple and not tender, no meningeal signs CARDIOVASCULAR: Regular rate and rhythm. No murmurs, rubs or gallops heard RESPIRATORY: Clear to auscultation. Breath sounds equal bilaterally. No rales , wheezing or rhonchi. Decreased at the bases ABDOMEN: Soft, non-tender, nondistended. Bowel sounds present and normoactive. No guarding. No rebound. No organomegaly. EXTREMITIES: No clubbing, cyanosis, or edema.No joint effusion, has good ROM. No calf tenderness. Well perfused and warm. NEUROLOGICAL: Awake and alert. Cranial nerves grossly intact. Motor grossly within normal limits. PSYCHIATRIC: Normal affect, calm and cooperative. LINE: No evidence of infection Assessment & Plan Remarks IMPRESSION Known pulmonary nodules from first CTA last November, now showing some cavitation in some of lesions, etiology? Acute onset of SOB, looks better, etiology? - no PE on CTA Underlying COPD, previously a heavy smoker One (+) BC with Coag Neg Staph C/W contamination RECOMMENDATION Follow bronch results Continue Cefepime Stop Vancomycin Monitor progress If C/S negative, will likely switch to oral Levaquin Explained plan to patient Laly Rodriguez MD Dec 29, 2016 13:57
[2016-12-29] MEDS: VANCOMYCIN INJ 2,250 MG in SODIUM CHLORID 0.9% 500 ML INJ 500 ML IV SCH ×3 (17:18)
--- NOTE | 2016-12-29 18:40 | HHI.PR ---
Subjective Remarks Feels better after Bronchoscopy. No fever. C/O Chest pains. CXR is clear . Objective Vital Signs Date Time Temp Pulse Resp B/P (MAP) Pulse Ox O2 Delivery O2 Flow Rate FiO2 12/29/16 16:00 96.8 93 18 179/108 (131) 100 12/29/16 12:00 97.5 96 18 171/91 (117) 100 12/29/16 10:01 99 12/29/16 08:00 96.1 86 18 151/102 (118) 97 12/29/16 04:00 98.0 81 16 134/79 (97) 95 12/29/16 00:00 98.4 77 19 154/80 (104) 100 12/28/16 20:32 96 12/28/16 18:56 97.8 91 22 164/87 (112) 100 I/O 12/28/16 12/28/16 12/28/16 12/29/16 12/29/16 12/29/16 07:00 15:00 23:00 07:00 15:00 23:00 Intake Total 620 ml 420 ml 1200 ml 1000 ml 620 ml Output Total 325 ml 1000 ml 1600 ml Balance 295 ml 420 ml 200 ml -600 ml 620 ml Intake Oral 420 ml 1200 ml 1000 ml 620 ml IV Total 620 ml Output Urine Total 325 ml 1000 ml 1600 ml # Voids 4 5 # Bowel Movements 1 1 Result Diagram: 12/29/1645 12/29/16544 Objective Remarks PHYSICAL EXAMINATION GENERAL: This is a moderately obese middle-aged man who is alert. HEENT: Head normocephalic. Pupils are reactive. Tongue is moist. Nasal mucosae edematous. Throat is clear NECK: No bruits or thyroid enlargement, no lymphadenopathy. CHEST: Decreased excursion, percussion note resonant. Expiratory wheezes are heard in the upper lung [place]. CARDIOVASCULAR: Heart sounds are regular. S1-S2. No murmur. ABDOMEN: Soft, protuberant. No mass, no organomegaly. EXTREMITIES: Minimal edema with diminished pulses. Reflexes are 1+ with no gross motor deficits. Cranial nerves are grossly intact. SKIN: No lesions are observed. Assessment and Plan Assessment and Plan IMPRESSION 1. Bilateral nodular pulmonary infiltrates with cavitation. Rule out septic emboli versus atypical infections like TB or fungus. 2. COPD with emphysema. 3. Exogenous obesity and possible sleep apnea. 4. Diabetes mellitus and peripheral neuropathy. Plan : 1. Cont antibiotics per ID. 2. IS qid. 3. Cont Duonebs tid. 4. Cont Symbicort 160/4.5 mcg , 2 puffs bid 5. D/C O2 6. Home when cleared by ID . Await AFB culture in 4 weeks 7. F/U as OP in 3 weeks. Lorin Billy MD Dec 29, 2016 18:40
[2016-12-30] VITALS (8 sets, daily range): BP systolic 119–170; BP diastolic 58–104; PULSE 68–128; RESP 16–20; TEMP 95.9–98; O2SAT 93–100
[2016-12-30] MEDS: CEFEPIME INJ 2,000 MG in SODIUM CHLORIDE 0.9% INJ 100 ML IV SCH ×3 (03:58→18:38)
[2016-12-30] MEDS: HEPARIN SODIUM - SQ 10,000 UNITS/ML VIAL SQ SCH ×3 (06:00→22:44)
[2016-12-30] MEDS: INSULIN ASPART SUPPLEMENTAL SCALE SQ SCH ×4 (08:00→21:15)
[2016-12-30] MEDS: REMOVE OLD PATCH T-DERMAL SCH (09:00)
[2016-12-30] MEDS: SODIUM CHLORIDE 1 GRAM TAB PO SCH ×2 (10:50→21:01)
[2016-12-30] MEDS: GABAPENTIN 100 MG CAP PO SCH ×3 (10:50→18:32)
[2016-12-30] MEDS: NICOTINE 7 MG/24 HR PATCH T-DERMAL SCH (10:52)
[2016-12-30] MEDS: THIAMINE HCL 100 MG TAB PO SCH (10:53)
[2016-12-30] MEDS: FOLIC ACID 1 MG TAB PO SCH (10:53)
[2016-12-30] MEDS: BUDESONIDE-FORMOTEROL 160/4.5 MCG INHALER INH SCH ×2 (10:53→21:15)
[2016-12-30] MEDS: DOCUSATE SODIUM 50 MG/SENNA 8.6 MG TAB PO SCH ×2 (10:53→21:01)
[2016-12-30] MEDS: SODIUM CHLORIDE 0.9% FLUSH 10 ML FLUSH IV FLUSH SCH ×2 (10:53→21:01)
--- NOTE | 2016-12-30 11:20 | HHI.PR ---
Subjective Remarks Sputum cultures negative thus far. Continue to monitor cultures for any growth and possible screening. Patient is otherwise improved and feeling close to baseline. Objective Vital Signs Date Time Temp Pulse Resp B/P (MAP) Pulse Ox O2 Delivery O2 Flow Rate FiO2 12/30/16 08:05 97.0 128 19 119/83 (95) 98 12/30/16 04:00 97.4 86 16 138/79 (98) 99 12/30/16 00:00 98.0 84 18 142/78 (99) 99 12/29/16 21:25 98 21 12/29/16 20:00 97.7 96 20 161/87 (111) 97 12/29/16 16:00 96.8 93 18 179/108 (131) 100 12/29/16 12:00 97.5 96 18 171/91 (117) 100 I/O 12/29/16 12/29/16 12/29/16 12/30/16 12/30/16 12/30/16 07:00 15:00 23:00 07:00 15:00 23:00 Intake Total 1000 ml 620 ml 960 ml 720 ml Output Total 1600 ml Balance -600 ml 620 ml 960 ml 720 ml Intake Oral 1000 ml 620 ml 960 ml 720 ml Output Urine Total 1600 ml # Voids 5 3 3 # Bowel Movements 1 Result Diagram: 12/29/16 0545 12/30/16 0716 Objective Remarks GENERAL: NAD, A&Ox3 HEAD: Normocephalic. NECK: Supple, trachea midline. No lymphadenopathy. EYES: No scleral icterus. No injection or drainage. CARDIOVASCULAR: Regular rate and rhythm without murmurs, gallops, or rubs. RESPIRATORY: Breath sounds equal bilaterally. No accessory muscle use. GASTROINTESTINAL: Abdomen soft, non-tender, nondistended. MUSCULOSKELETAL: No cyanosis, or edema. SKIN: Warm and dry. NEURO: No focal neurological deficitis. A/P Problem List: (1) COPD exacerbation ICD Code: J44.1 - Chronic obstructive pulmonary disease with (acute) exacerbation; J98.4 - Other disorders of lung Status: Acute (2) Cavitary pneumonia ICD Code: J18.9 - Pneumonia, unspecified organism; J98.4 - Other disorders of lung Status: Acute Assessment and Plan Assessment and Plan 61-year-old male admitted with cavitary pneumonia and COPD exacerbation. PPD is negative. Follow clinically for further improvement. Continue to monitor cultures. Cavitary pneumonia Continue cefepime Continue vancomycin PPD negative ID following Pulmonology following Follow sputum culture Follow blood cultures COPD exacerbation Continue oxygen supplements as needed Schedule duo nebs When necessary albuterol Azithromycin Systemic steroids Follow for improvement in respiratory status Follow for improvement in exertional tolerance next Diarrhea Resolved No C. difficile toxin obtained yet (no diarrhea) Hyponatremia Continue to monitor Improving thus far May be alcohol related Diabetes mellitus type 2 Follow blood sugars Insulin sliding scale Diabetic diet Alcohol abuse history May be contributory Contributory to hyponatremia Follow for delirium tremens Folic acid Thiamine DVT prophylaxis Heparin James Ford MD Dec 30, 2016 11:20
[2016-12-30] MEDS ORDERED: PHARMACY ORDERED LAB ONE (11:45)
[2016-12-30] MEDS: ACETAMIN 325 MG/BUTALBITAL 50 MG/CAFFEINE 40 MG TAB PO PRN ×2 (13:12→21:01)
[2016-12-30] MEDS: VANCOMYCIN INJ 2,500 MG in SODIUM CHLORID 0.9% 500 ML INJ 500 ML IV SCH (15:12)
[2016-12-30] MEDS: cloNIDine HCL 0.1 MG TAB PO PRN (18:32)
[2016-12-31] MEDS: CEFEPIME INJ 2,000 MG in SODIUM CHLORIDE 0.9% INJ 100 ML IV SCH ×3 (03:15→19:49)
[2016-12-31] MEDS: HEPARIN SODIUM - SQ 10,000 UNITS/ML VIAL SQ SCH ×3 (04:37→22:15)
[2016-12-31 08:00] VITALS: BP 136/75; PULSE 81; RESP 19; TEMP 96.2; O2SAT 98
[2016-12-31] MEDS: THIAMINE HCL 100 MG TAB PO SCH (08:53)
[2016-12-31] MEDS: INSULIN ASPART SUPPLEMENTAL SCALE SQ SCH ×4 (08:53→19:49)
[2016-12-31] MEDS: SODIUM CHLORIDE 1 GRAM TAB PO SCH ×2 (08:53→19:49)
[2016-12-31] MEDS: DOCUSATE SODIUM 50 MG/SENNA 8.6 MG TAB PO SCH ×2 (08:53→19:49)
[2016-12-31] MEDS: FOLIC ACID 1 MG TAB PO SCH (08:53)
[2016-12-31] MEDS: NICOTINE 7 MG/24 HR PATCH T-DERMAL SCH (08:53)
[2016-12-31] MEDS: GABAPENTIN 100 MG CAP PO SCH ×3 (08:53→16:38)
[2016-12-31] MEDS: REMOVE OLD PATCH T-DERMAL SCH (08:53)
[2016-12-31] MEDS: BUDESONIDE-FORMOTEROL 160/4.5 MCG INHALER INH SCH ×2 (08:54→19:53)
[2016-12-31] MEDS: SODIUM CHLORIDE 0.9% FLUSH 10 ML FLUSH IV FLUSH SCH ×2 (08:54→19:53)
[2016-12-31] MEDS: VANCOMYCIN INJ 2,500 MG in SODIUM CHLORID 0.9% 500 ML INJ 500 ML IV SCH (08:54)
--- NOTE | 2016-12-31 10:46 | HHI.PR ---
Subjective Remarks Patient is clinically improving. Cultures continue to be pending. Patient has no new complaints. Objective Vital Signs Date Time Temp Pulse Resp B/P (MAP) Pulse Ox O2 Delivery O2 Flow Rate FiO2 12/31/16 08:00 96.2 81 19 136/75 (95) 98 12/30/16 23:42 97.9 68 19 148/73 (98) 93 12/30/16 20:56 97.8 88 19 124/58 (80) 95 12/30/16 16:00 97.6 76 20 170/104 (126) 100 12/30/16 12:25 97 21 12/30/16 12:00 95.9 84 19 154/94 (114) 100 12/30/16 10:52 95 Room Air I/O 12/30/16 12/30/16 12/30/16 12/31/16 12/31/16 12/31/16 07:00 15:00 23:00 07:00 15:00 23:00 Intake Total 720 ml 960 ml 1230 ml 820 ml Output Total 950 ml Balance 720 ml 960 ml 1230 ml -130 ml Intake Oral 720 ml 960 ml 480 ml 720 ml IV Total 750 ml 100 ml Output Urine Total 950 ml # Voids 3 5 5 # Bowel Movements 1 1 0 Result Diagram: 12/29/16 0545 12/30/16 0716 Objective Remarks GENERAL: NAD, A&Ox3 HEAD: Normocephalic. NECK: Supple, trachea midline. No lymphadenopathy. EYES: No scleral icterus. No injection or drainage. CARDIOVASCULAR: Regular rate and rhythm without murmurs, gallops, or rubs. RESPIRATORY: Breath sounds equal bilaterally. No accessory muscle use. GASTROINTESTINAL: Abdomen soft, non-tender, nondistended. MUSCULOSKELETAL: No cyanosis, or edema. SKIN: Warm and dry. NEURO: No focal neurological deficitis. A/P Problem List: (1) COPD exacerbation ICD Code: J44.1 - Chronic obstructive pulmonary disease with (acute) exacerbation; J98.4 - Other disorders of lung Status: Acute (2) Cavitary pneumonia ICD Code: J18.9 - Pneumonia, unspecified organism; J98.4 - Other disorders of lung Status: Acute Assessment and Plan Assessment and Plan 61-year-old male admitted with cavitary pneumonia and COPD exacerbation. PPD is negative. Follow clinically for further improvement. Continue to monitor cultures. Once cultures result treatment plan will be selected by infectious disease physician. Cavitary pneumonia Continue cefepime Continue vancomycin PPD negative ID following Pulmonology following Follow sputum culture Follow blood cultures COPD exacerbation Continue oxygen supplements as needed Schedule duo nebs When necessary albuterol Azithromycin Systemic steroids Follow for improvement in respiratory status Follow for improvement in exertional tolerance next Diarrhea Resolved No C. difficile toxin obtained yet (no diarrhea) Hyponatremia Continue to monitor Improving thus far May be alcohol related Diabetes mellitus type 2 Follow blood sugars Insulin sliding scale Diabetic diet Alcohol abuse history May be contributory Contributory to hyponatremia Follow for delirium tremens Folic acid Thiamine DVT prophylaxis Heparin James Ford MD Dec 31, 2016 10:46
[2016-12-31 12:03] VITALS: BP 130/91; PULSE 83; RESP 20; TEMP 95.8; O2SAT 99
[2016-12-31 16:00] VITALS: BP 158/90; PULSE 83; RESP 20; TEMP 96.6; O2SAT 99
[2016-12-31 19:49] VITALS: BP 144/89; PULSE 91; RESP 20; TEMP 96.7; O2SAT 95
[2016-12-31] MEDS: ACETAMINOPHEN 325 MG TAB PO PRN (19:52)
[2016-12-31 23:50] VITALS: BP 136/76; PULSE 68; RESP 19; TEMP 96.8; O2SAT 94
[2017-01-01] MEDS: VANCOMYCIN INJ 2,500 MG in SODIUM CHLORID 0.9% 500 ML INJ 500 ML IV SCH (03:36)
[2017-01-01] MEDS: CEFEPIME INJ 2,000 MG in SODIUM CHLORIDE 0.9% INJ 100 ML IV SCH ×2 (03:36→12:22)
[2017-01-01] MEDS: HEPARIN SODIUM - SQ 10,000 UNITS/ML VIAL SQ SCH ×2 (05:54→12:23)
[2017-01-01 08:00] VITALS: BP 163/109; PULSE 74; RESP 19; TEMP 97; O2SAT 98
[2017-01-01] MEDS: INSULIN ASPART SUPPLEMENTAL SCALE SQ SCH ×2 (08:00→12:24)
[2017-01-01] MEDS: BUDESONIDE-FORMOTEROL 160/4.5 MCG INHALER INH SCH (08:24)
[2017-01-01] MEDS: NICOTINE 7 MG/24 HR PATCH T-DERMAL SCH (08:25)
[2017-01-01] MEDS: DOCUSATE SODIUM 50 MG/SENNA 8.6 MG TAB PO SCH (08:25)
[2017-01-01] MEDS: SODIUM CHLORIDE 1 GRAM TAB PO SCH (08:25)
[2017-01-01] MEDS: REMOVE OLD PATCH T-DERMAL SCH (08:25)
[2017-01-01] MEDS: THIAMINE HCL 100 MG TAB PO SCH (08:25)
[2017-01-01] MEDS: cloNIDine HCL 0.1 MG TAB PO PRN (08:25)
[2017-01-01] MEDS: FOLIC ACID 1 MG TAB PO SCH (08:25)
[2017-01-01] MEDS: GABAPENTIN 100 MG CAP PO SCH ×2 (08:25→12:22)
[2017-01-01] MEDS: SODIUM CHLORIDE 0.9% FLUSH 10 ML FLUSH IV FLUSH SCH (08:29)
[2017-01-01 12:20] VITALS: BP 138/74; PULSE 82; RESP 18; TEMP 96.2; O2SAT 99
[2017-01-01] MEDS ORDERED: LEVOFLOXACIN 750 MG TAB PO SCH (13:00)
[2017-01-01] MEDS ORDERED: ALBUAER3 INH (14:58)
[2017-01-01] MEDS ORDERED: SYMB160A INH (14:58)
[2017-01-01] MEDS ORDERED: LEVA750T9 PO (14:58)
--- NOTE | 2017-01-01 15:07 | HHI.DS ---
Discharge Summary Admission Date Dec 25, 2016 at 03:10 Discharge Date: Jan 01, 2017 Admitting Diagnosis Cavitary Pneumonia, COPD exacerbation (1) Cavitary pneumonia ICD Code: J18.9 - Pneumonia, unspecified organism; J98.4 - Other disorders of lung Diagnosis: Principal Status: Acute (2) COPD exacerbation ICD Code: J44.1 - Chronic obstructive pulmonary disease with (acute) exacerbation; J98.4 - Other disorders of lung Status: Acute (3) Tobacco abuse ICD Code: Z72.0 - Tobacco use Diagnosis: Principal Status: Chronic Procedures Bronchoscopy Brief History - From Admission 61-year-old male with a past medical history significant for COPD, diabetes mellitus and alcohol abuse presents to the emergency department with acute onset shortness of breath, dizziness and diarrhea. The patient states he was in his usual state of health when he went to bed around midnight and suddenly awoke from sleep gasping for air. He states he has had diarrhea twice during the day prior to going to sleep. He has a nonproductive cough that also began yesterday. Patient was recently discharged on 11/24/16 where he was treated for hyponatremia, lactic acidosis, alcohol abuse and rhabdo. Patient is hyponatremic today with a sodium of 129. Lactic acid 1.8. CTA showed numerous nodular infiltrates throughout the right upper and lower lobe, some of which appear to be cavitary. There are multiple new cavitary lesions since the November exam. CBC/BMP: 12/29/16 0545 01/01/17 0515 Significant Findings Laboratory Tests Test 12/30/16 07:16 12/30/16 13:15 01/01/17 05:15 Vancomycin Level Trough 11.8 MCG/ML (5.0-10.0) Imaging Last Impressions Chest X-Ray 12/27/16 0000 Signed Impressions: Service Date/Time: Tuesday, December 27, 2016 11:58 - CONCLUSION: Normal examination. Chai Neville MD CT Angiography 12/25/16 0158 Signed Impressions: Service Date/Time: Sunday, December 25, 2016 02:22 - CONCLUSION: Numerous small nodular infiltrates throughout the right upper lobe and the right lower lobe some of which appear to be cavitary. The nodules are between 4-6 mm with multiple new cavitary lesions since the November exam. Pulmonary consult is recommended. No evidence of pulmonary embolism Mich Menard MD PE at Discharge GENERAL: NAD, A&Ox3 HEAD: Normocephalic. NECK: Supple, trachea midline. No lymphadenopathy. EYES: No scleral icterus. No injection or drainage. CARDIOVASCULAR: irregularly irregular RESPIRATORY: Breath sounds are clear and equal bilaterally. No accessory muscle use. GASTROINTESTINAL: Abdomen soft, non-tender, nondistended. MUSCULOSKELETAL: No cyanosis, or edema. SKIN: Warm and dry. NEURO: No focal neurological deficits. Pt update on day of discharge The patient was ambulating the hallways. He wanted to go home. He had no acute complaints. Discussed with nursing and case management. Hospital Course Cavitary pneumonia 61-year-old male admitted with cavitary pneumonia and COPD exacerbation. He received steroids in the ED. PPD was negative. Imaging revealed a cavitary pneumonia. ID and pulmonology were consulted. He was started on IV cefepime and vancomycin. The pt is s/p bronchoscopy by pulmonology. His cultures were negative. He was started on Symbicort. He was continued on Duonebs. He received smoking cessation instruction. He will complete a course of Levaquin per ID. He will follow up with pulmonology as an outpt. He will be provided with Symbicort and Proair upon discharge. Hyponatremia Has been stable. He will resume his home salt tabs upon discharge. Diabetes mellitus type 2 He was placed on an insulin sliding scale. He will resume his home regimen. Pt Condition on Discharge: Stable Discharge Disposition: Discharge Home Discharge Time: > 30 minutes Discharge Instructions DIET: Follow Instructions for: Heart Healthy Diet Activities you can perform: Weight Bearing as Lilia Follow up Referrals: PCP Follow-up - 1 Week Pulmonology - 1 Week with Lorin Billy MD New Medications: Albuterol 8.5 GM Inh (Proair Hfa 8.5 GM Inh) 90 Mcg/Act Aer 1 PUFF INH Q4H PRN for SHORTNESS OF BREATH, #1 INHALER 0 Refills 108 mcg/actuation Budesonide-Formoterol Inh (Symbicort Inh) 160-4.5 Mcg/Act Aero 2 PUFF INH Q12HR, #1 INHALER 0 Refills Levofloxacin (Levaquin) 750 Mg Tablet 750 MG PO DAILY for Infection, #10 TAB 0 Refills Continued Medications: Folic Acid (Folic Acid) 1 Mg Tablet 1 MG PO DAILY for Alcohol Detox, #31 TAB-CAP Gabapentin (Gabapentin) 100 Mg Cap 100 MG PO TID for neuropathy, #93 CAP Nicotine (Eq Nicotine) 21 Mg/24 Hour Dis 1 PATCH T-DERMAL DAILY for tobacco use, #14 PATCH Sodium Chloride (Sodium Chloride) 1 Gram Tab 1 GM PO BID for low sodium, #60 TAB Thiamine HCl (Gnp Vitamin B-1) 100 Mg Tab 100 MG PO DAILY for Alcohol Detox, #31 TAB Emery Sanchez DO Jan 01, 2017 15:07
--- NOTE | 2017-01-01 15:07 | HHI.IDPN ---
Subjective Subjective Remarks Patient is a 61-year-old male, presented to the hospital with an acute onset of severe shortness of breath. She is not a very good historian. He apparently mentioned that he was also having some dizziness and diarrhea. He has very minimal cough or sputum production. He denies any fever chills or sweats. He has not had any nausea or vomiting or any diarrhea. Patient was recently hospitalized in November admitted for altered mental status. He was found to have significant hyponatremia, and rhabdo, as well as lactic acidosis. He had a CTA during that admission and he had multiple small nodules seen on his CT. The CTA he had done on this admission is still showing the nodular lesions, but some of them appear to have some cavitation. Patient denies any significant congestion. He denies having had any syncopal episode. He is edentulous. No exposure to sick person or tuberculosis. On admission patient is afebrile. His WBC is normal. Chest x-rays normal, and as mentioned CTA showing the same nodular lesions compared to CT from November, but some of them with some cavitation. They have not really increase in size. Infectious disease consultation has been requested to evaluate the patient. Notes reviewed Temps ok No new complaints Breathing better - seems to be back to baseline Bronch cytology and biopsy no malignancy Bronch C/S normal resp garcía CXR post bronch normal One BC with Coag Neg Staph C/W contaminant Antibiotics Cefepime Current Medications Medications (Trade) Dose Ordered Sig/Gwen Route Start Time Stop Time Status Last Admin Cefepime HCl 2000 mg/Sodium Chloride 100 ml @ 200 mls/hr Q8H IV 12/25/16 11:00 01/01/17 12:22 (NS Flush) 2 ml UNSCH PRN IV FLUSH 12/25/16 04:45 (NS Flush) 2 ml BID IV FLUSH 12/25/16 09:00 01/01/17 08:29 (Tylenol) 650 mg Q4H PRN PO 12/25/16 04:45 12/31/16 19:52 (Zofran Inj) 4 mg Q6H PRN IVP 12/25/16 04:45 (Heparin Inj) 5,000 units Q8H SQ 12/25/16 06:00 01/01/17 12:23 (Narcan Inj) 0.4 mg UNSCH PRN IV PUSH 12/25/16 04:45 (Martina-Colace) 1 tab BID PO 12/25/16 09:00 01/01/17 08:25 (Milk Of Magnesia Liq) 30 ml Q12H PRN PO 12/25/16 04:45 (Senokot) 17.2 mg Q12H PRN PO 12/25/16 04:45 (Dulcolax Supp) 10 mg DAILY PRN RECTAL 12/25/16 04:45 (Lactulose Liq) 30 ml DAILY PRN PO 12/25/16 04:45 (Romazicon Inj) 0.2 mg Q1M PRN IV PUSH 12/25/16 04:45 (Ativan) 1 mg Q4H PRN PO 12/25/16 04:45 (Ativan Inj) 1 mg Q4H PRN IV PUSH 12/25/16 04:45 (Ativan) 2 mg Q2H PRN PO 12/25/16 04:45 (Ativan Inj) 2 mg Q2H PRN IV PUSH 12/25/16 04:45 (Ativan Inj) 2 mg Q1H PRN IV PUSH 12/25/16 04:45 (Ativan Inj) 2 mg Q15M PRN IV PUSH 12/25/16 04:45 (D50w (Vial) Inj) 50 ml UNSCH PRN IV PUSH 12/25/16 04:45 (Glucagon Inj) 1 mg UNSCH PRN OTHER 12/25/16 04:45 (NovoLOG SUPPLEMENTAL SCALE) 1 ACHS SLIDING SCALE SQ 12/25/16 08:00 01/01/17 12:24 (Neurontin) 100 mg TID PO 12/25/16 09:00 01/01/17 12:22 (Sodium Chloride) 1 gm BID PO 12/25/16 09:00 01/01/17 08:25 (Duoneb Neb) 1 ampule Q4HR NEB PRN NEB 12/25/16 04:45 12/29/16 21:24 (Catapres) 0.1 mg Q6H PRN PO 12/25/16 09:00 01/01/17 08:25 (Vasotec Inj) 1.25 mg Q6H PRN IV PUSH 12/25/16 09:00 12/27/16 00:22 (Habitrol 7 Mg Patch.24 Hr) 1 patch DAILY T-DERMAL 12/27/16 09:00 01/01/17 08:25 Miscellaneous Information 1 DAILY T-DERMAL 12/27/16 09:00 01/01/17 08:25 (Vitamin B1) 100 mg DAILY PO 12/27/16 09:00 01/01/17 08:25 (Folate) 1 mg DAILY PO 12/27/16 09:00 01/01/17 08:25 (Symbicort 160-4.5 Inh) 2 puff Q12HR INH 12/28/16 21:00 01/01/17 08:24 (Fioricet 325-50-40) 1 tab Q6H PRN PO 12/30/16 11:30 12/30/16 21:01 (Levaquin) 750 mg DAILY PO 01/01/17 13:00 01/01/17 12:22 Lines PIV Past Medical History COPD Diabetes mellitus Neuropathy Past Surgical History COPD Diabetes mellitus Neuropathy Allergies: Coded Allergies: No Known Allergies (Unverified Allergy, Unknown, 12/25/16) Objective . Vital Signs Date Time Temp Pulse Resp B/P (MAP) Pulse Ox O2 Delivery O2 Flow Rate FiO2 01/01/17 12:20 96.2 82 18 138/74 (95) 99 01/01/17 08:29 Room Air 01/01/17 08:00 97.0 74 19 163/109 (127) 98 12/31/16 23:50 96.8 68 19 136/76 (96) 94 12/31/16 19:49 96.7 91 20 144/89 (107) 95 12/31/16 16:00 96.6 83 20 158/90 (112) 99 . Laboratory Tests Test 01/01/17 05:15 Creatinine 0.70 MG/DL Estimat Glomerular Filtration Rate 115 ML/MIN Imaging Last Impressions Chest X-Ray 12/27/16 0000 Signed Impressions: Service Date/Time: Tuesday, December 27, 2016 11:58 - CONCLUSION: Normal examination. Chai Neville MD CT Angiography 12/25/16 0158 Signed Impressions: Service Date/Time: Sunday, December 25, 2016 02:22 - CONCLUSION: Numerous small nodular infiltrates throughout the right upper lobe and the right lower lobe some of which appear to be cavitary. The nodules are between 4-6 mm with multiple new cavitary lesions since the November exam. Pulmonary consult is recommended. No evidence of pulmonary embolism Mich Menard MD Physical Exam GENERAL: awake and alert, not in respiratory distress. SKIN: Cool and dry. No generalized rash, no ecchymoses and no evidence of embolic lesions. HEAD: Normocephalic. No temporal wasting, or tenderness. EYES: Crystal conjunctiva. No petechia or hemorrhage. Pupils equal, round and reactive to light. Extraocular movements full and intact. No scleral icterus. No injection or drainage. EARS, NOSE AND THROAT: Nose without bleeding or purulent nasal discharge. No sinus tenderness. Edentulous. Mucous membranes pink and moist. No oral lesions noted. NECK: Trachea midline. Supple and not tender, no meningeal signs CARDIOVASCULAR: Regular rate and rhythm. No murmurs, rubs or gallops heard RESPIRATORY: Few scattered rhonchily. EXTREMITIES: No clubbing, cyanosis, or edema.No joint effusion, has good ROM. No calf tenderness. Well perfused and warm. NEUROLOGICAL: Awake and alert. Cranial nerves grossly intact. Motor grossly within normal limits. PSYCHIATRIC: Normal affect, calm and cooperative. LINE: No evidence of infection Assessment & Plan Remarks IMPRESSION Known pulmonary nodules from first CTA last November, now showing some cavitation in some of lesions, etiology? Acute onset of SOB, looks better, etiology? - no PE on CTA Underlying COPD, previously a heavy smoker One (+) BC with Coag Neg Staph C/W contamination RECOMMENDATION Change to oral Levaquin and give 10 more days Will need fup CT chest to reevaluate the nodules, 4-6 weeks he is doing well from ID standpoint Can be D/C from ID standpoint Explained plan to patient D/W Laly Smith MD Jan 01, 2017 15:07
--- NOTE | 2017-01-01 15:07 | HHI.DCPOC ---
Discharge Care Plan Diagnosis: (1) Tobacco abuse (2) Cavitary pneumonia (3) COPD exacerbation Goals to Promote Your Health * To prevent worsening of your condition and complications * To maintain your health at the optimal level Directions to Meet Your Goals Take your medications as prescribed Follow your dietary instruction Follow activity as directed Keep your appointments as scheduled Take your immunizations and boosters as scheduled If your symptoms worsen call your PCP, if no PCP go to Urgent Care Center or Emergency Room Smoking is Dangerous to Your Health. Avoid second hand smoke Call the 24-hour hour crisis hotline for domestic abuse at Emery Sanchez DO Jan 01, 2017 15:07
[2017-01-01 15:16] VITALS: BP 143/77; PULSE 83; RESP 19; TEMP 96.5; O2SAT 96
[2017-01-01] MEDS ORDERED: PHARMACY ORDERED LAB ONE (20:45)
== END 2017-01-01 18:05 | disposition home or self-care (01) | DRG 166 ==
LOC: NEPE 23:13 → NEDA 12-25 03:10 → N06B 12-25 05:35
PROVIDERS: ADMIT Hospitalist; ATTEND Hospitalist
PROC: 0B9J8ZX Drainage of Left Lower Lung Lobe, Via Natural or Artificial Opening Endoscopic, Diagnostic (ICD-10-PCS; 2016-12-27)
PROC: 0B9G8ZX Drainage of Left Upper Lung Lobe, Via Natural or Artificial Opening Endoscopic, Diagnostic (ICD-10-PCS; 2016-12-27)
PROC: 0B9F8ZX Drainage of Right Lower Lung Lobe, Via Natural or Artificial Opening Endoscopic, Diagnostic (ICD-10-PCS; 2016-12-27)
PROC: 0BBF8ZX Excision of Right Lower Lung Lobe, Via Natural or Artificial Opening Endoscopic, Diagnostic (ICD-10-PCS; principal; 2016-12-27 11:19)
DX: J44.0 Chronic obstructive pulmonary disease with (acute) lower respiratory infection (principal); J18.9 Pneumonia, unspecified organism; E11.42 Type 2 diabetes mellitus with diabetic polyneuropathy; E87.1 Hypo-osmolality and hyponatremia; J44.1 Chronic obstructive pulmonary disease with (acute) exacerbation; J98.4 Other disorders of lung; R91.8 Other nonspecific abnormal finding of lung field; F17.210 Nicotine dependence, cigarettes, uncomplicated; R19.7 Diarrhea, unspecified; F10.10 Alcohol abuse, uncomplicated; I10 Essential (primary) hypertension; E66.09 Other obesity due to excess calories; Z68.39 Body mass index [BMI] 39.0-39.9, adult
CPT/HCPCS: 36600; 71010; 71275; 80053; 80202; 81001; 82550; 82565; 82805; 82948; 83036; 83605; 83690; 83735; 83880; 84443; 84484; 85025; 85379; 85610; 85730; 86403; 87015; 87040; 87070; 87071; 87077; 87102; 87116; 87185; 87186; 87205; 87206; 88305; 88312; 93005; 94060; 94640; 94664; 96374; J0171; J0330; J0456; J0692; J1644; J1815; J2270; J2405; J2930; J3370; J7030; J7040; J7050; Q9967

== ENCOUNTER 2017-03-06 14:18 | Emergency (ER) | payer OTHER ==
[2017-03-06] MEDS: IOHEXOL 350 MG/ML 10 ML VIAL (for RAD DIAG) IVCONTRAST (14:19)
[2017-03-06 15:54] LABS: AUTOMATED NEUTROPHIL # 7.8 TH/MM3 (1.8-7.7); BASOPHIL # 0.1 TH/MM3 (0-0.2); BASOPHIL % 0.5 % (0.0-2.0); EOSINOPHIL # 0.1 TH/MM3 (0-0.4); EOSINOPHIL % 1.1 % (0.0-4.0); HEMATOCRIT 38.5 % (39.0-51.0); HEMO FLAGS DIFF FINAL; HEMOGLOBIN 13.5 GM/DL (13.0-17.0); LYMPH % 20.3 % (9.0-44.0); LYMPHOCYTE # 2.3 TH/MM3 (1.0-4.8); MEAN CELL VOLUME 96.3 FL (80.0-100.0); MEAN CORPUSCULAR HEMOGLOBIN 33.9 PG (27.0-34.0); MEAN CORPUSCULAR HGB CONC 35.2 % (32.0-36.0); MEAN PLATELET VOLUME 6.9 FL (7.0-11.0); MONO % 8.9 % (0.0-8.0); NEUT % 69.2 % (16.0-70.0); PLATELET COUNT 247 TH/MM3 (150-450); RED CELL DISTRIBUTION WIDTH 13.8 % (11.6-17.2); WHITE BLOOD COUNT 11.3 TH/MM3 (4.0-11.0)
[2017-03-06 16:07] LABS: APTT (PATIENT) 29.2 SEC (24.3-30.1); PROTHROMBIN TIME - PATIENT 10.3 SEC (9.8-11.6)
[2017-03-06 16:13] LABS: ALBUMIN 4.2 GM/DL (3.4-5.0); ANION GAP 12 MEQ/L (5-15); AST (GOT) 26 U/L (15-37); BICARBONATE 23.9 MEQ/L (21.0-32.0); BLOOD UREA NITROGEN 7 MG/DL (7-18); CALCIUM 8.6 MG/DL (8.5-10.1); CHLORIDE 93 MEQ/L (98-107); CREATININE 0.83 MG/DL (0.60-1.30); GLOMERULAR FILTRATION RATE 94 ML/MIN (>89); GLUCOSE,RANDOM 87 MG/DL (74-106); SODIUM (NA) 129 MEQ/L (136-145)
[2017-03-06 16:17] LABS: ALKALINE PHOSPHATASE 70 U/L (45-117); ALT (GPT) 32 U/L (12-78); TOTAL BILIRUBIN ADULT 0.5 MG/DL (0.2-1.0); TOTAL PROTEIN 8.3 GM/DL (6.4-8.2)
[2017-03-06] MEDS ORDERED: SODIUM CHLORIDE 0.9% FLUSH 10 ML FLUSH IVF (19:15)
[2017-03-06] MEDS: RESP: ALBUTEROL 2.5 MG/3 ML NEB (SCH) INH ×2 (19:17→19:18)
[2017-03-06] MEDS: hydrALAZINE HCL 20 MG/ML VIAL IV PUSH (19:44)
[2017-03-06 20:10] LABS: TROPONIN I LESS THAN 0.02 NG/ML (0.02-0.05)
[2017-03-06 20:24] LABS: B-TYPE NATRIURETIC PEPTIDE 26 PG/ML (0-100)
[2017-03-06] MEDS: methylPREDNISolone SOD SUCC 125 MG/2 ML VIAL IV PUSH (22:19)
[2017-03-07 02:42] LABS: ALCOHOL LESS THAN 3 MG/DL (0-5)
== END 2017-03-06 22:48 | disposition home or self-care (01) ==
LOC: NEPC 14:18
DX: J44.1 Chronic obstructive pulmonary disease with (acute) exacerbation (principal); I10 Essential (primary) hypertension; E11.9 Type 2 diabetes mellitus without complications; R94.31 Abnormal electrocardiogram [ECG] [EKG]; Z72.0 Tobacco use; Z79.899 Other long term (current) drug therapy
CPT/HCPCS: 71046; 71260; 80053; 80307; 83880; 84484; 85025; 85610; 85730; 87804; 87804-59; 93005; 94640; 94664; 96374; 96375; 99285-25